=== PATIENT | female | born 1940 | race Caucasian/White ===

== ENCOUNTER 2019-09-15 09:19 | Outpatient (CLI) | payer MEDICARE, OTHER, SELFPAY ==
--- NOTE | 2019-09-15 09:31 | MM_ITS ---
WS: [id number] BILATERAL DIGITAL SCREENING MAMMOGRAPHY WITH CAD CLINICAL INFORMATION: SCREENING HISTORY: Screening mammogram. No current complaints. COMPARISON: July 21, 2018 TECHNIQUE: Bilateral CC and MLO views. FINDINGS: The breasts are composed of heterogeneous fibroglandular density tissue, which can limit the detectio n of small underlying mass lesions. No suspicious mass, asymmetry, calcifications, or architectural d istortion. No evidence of malignancy. Vascular calcification MM/[place] [id number] IMPRESSION: BI-RADS: 2-Benign FOLLOW UP: 1 Year Follow-up Recommend return to annual screening mammography.
== END 2019-09-15 09:20 | disposition home or self-care (01) ==
LOC: RADSHAW 09:25
PROVIDERS: PCP Family Medicine; Visit Provider Family Medicine
DX: Z12.31 Encounter for screening mammogram for malignant neoplasm of breast (principal)
CPT/HCPCS: 77067

== ENCOUNTER 2020-03-13 13:02 | Inpatient (IN) | payer MEDICARE, OTHER, SELFPAY ==
[2020-03-13 13:05] VITALS: BP 186/78; PULSE 89; RESP 18; TEMP 36.4; O2SAT 97; BMI 20.2
--- NOTE | 2020-03-13 13:07 | XRR_ITS ---
PROCEDURE INFORMATION: Exam: XR Left Knee Exam date and time: 03/13/2020 1:09 PM Age: 79 years old Clinical indication: Injury or trauma; Fall; Blunt trauma; Knee and lower leg; Left; Injury date: Today; Additional info: Fall/injury TECHNIQUE: Imaging protocol: XR Left knee. Views: 3 views. COMPARISON: No relevant prior studies available. FINDINGS: Bones/joints: Transverse displaced fracture involving the proximal shaft of the tibia and comminuted displaced fracture proximal shaft of the fibula Soft tissues: There is a suprapatellar bursa effusion. XR/XR knee LT 3V* [id number] IMPRESSION: 1. Transverse displaced posteriorly angulated fracture of the proximal tibia. 2. Comminuted displaced fracture of the proximal fibula. 3. Suprapatellar bursa effusion
--- NOTE | 2020-03-13 13:07 | XRR_ITS ---
PROCEDURE INFORMATION: Exam: XR Left Tibia and Fibula Exam date and time: 03/13/2020 1:09 PM Age: 79 years old Clinical indication: Injury or trauma; Fall; Blunt trauma; Knee and lower leg; Left; Injury date: Today; Additional info: Fall/injury TECHNIQUE: Imaging protocol: XR Left tibia and fibula. Views: 2 views. COMPARISON: No relevant prior studies available. FINDINGS: Bones/joints: Transverse displaced posteriorly angulated fracture of the proximal metaphysis of the tibia. Comminuted displaced fracture of the proximal fibula. The remainder of the tibia and fibula are unremarkable Soft tissues: Suprapatellar bursa effusion is seen. XR/XR tibia fibula LT 2V [id number] IMPRESSION: 1. Transverse displaced fracture of the proximal tibia 2. Comminuted displaced fracture of the proximal fibula 3. Suprapatellar bursa effusion
--- NOTE | 2020-03-13 13:21 | ED_ITS ---
HPI - Fall General: Chief Complaint: Fall Stated Complaint: LEFT LOWER LEG PAIN S/P FALL Time Seen by Provider: 03/13/20 13:03 Source: patient and EMS Mode of arrival: EMS Limitations: no limitations History of Present Illness: HPI Narrative: Freida is a nice 79-year-old female who states that she tripped and fell at restoration today. She has pain just distal to her left knee. She says at rest it does not hurt but anytime she tries to bear weight she has a great deal of pain in that area. She denies any other injuries. She denies being on any antiplatelet or anticoagulation. Any type of bearing of weight makes things worse and nothing makes it better Associated symptoms-after fall: Denies abdominal pain, chest pain, confusion, difficulty walking, headache(s), hematuria, lightheadedness or vertigo Review of Systems Const: Denies: fever(s), chills, body aches, fatigue, malaise or diaphoresis Eyes: Denies: change in vision, blurry vision, photophobia, eye discomfort, eye discharge, eye redness or yellow eyes ENMT: Denies: throat pain, odynophagia, hoarseness, swelling of lips/tongue, ear or mastoid pain, ear discharge, change in hearing or nasal discharge Card: Denies: chest pain, palpitations, irregular heart rhythm, edema, lightheadedness, syncope, pre-syncope, dyspnea on exertion or orthopnea Resp: Denies: dyspnea, productive cough, non-productive cough, wheezing, hemoptysis or chest congestion GI: Denies: abdominal pain, nausea, vomiting, hematemesis, coffee ground emesis, heartburn, diarrhea, constipation, GI cramping, hematochezia or melena : Denies: flank pain, dysuria, urinary frequency, urinary urgency or hematuria Musc: Reports: extremity pain and joint pain Skin/Breast: Denies: rash, pruritus, erythema, skin pain or skin tenderness Neuro: Denies: headache(s), numbness in extremities, weakness in extremities, sensory changes, lack of coordination, difficulty walking, dizziness, vertigo, confusion, Slurred speech present or seizure-like activity Stas/Lymph: Denies: easy bruising, easy bleeding, petechiae, purpura or enlarged lymph nodes All/Imm: Denies: urticaria, throat swelling, tongue swelling, facial swelling or acute wheezing ON LICENSE OF [facility] ED PFS: Medical History (Updated 03/13/20 @ 13:53 by Cheryl Herron) No pertinent past medical history Physical Exam Const: COMMON NORMALS: no acute distress, patient oriented x3, no limitations and alert GENERAL APPEARANCE: cooperative HENMT: COMMON NORMALS: normocephalic, atraumatic, external ears normal, EAC's normal and Normal external nose present HEAD & SCALP: normal to inspection, normocephalic and atraumatic FACE & SINUS: normal facial exam and face symmetric NOSE: Normal external nose present and Normal nares present EXTERNAL EAR: Yes external ears normal EXTERNAL AUDITORY CANAL: EAC's normal MOUTH: Normal oral and palatal mucosa present, lip normal and tongue normal Eye: COMMON NORMALS: Equal, round and reactive pupils present and conjunctivae normal GENERAL EYE: appearance normal, both eyes and all related structures ALIGNMENT: Yes alignment normal PERIORBITAL: periorbital findings normal EYELID: eyelids normal CONJUNCTIVA: Yes conjunctivae normal SCLERA: sclerae normal PUPIL: Yes Equal, round and reactive pupils present Neck/C-Spine: COMMON NORMALS: full ROM, no lymphadenopathy, supple, no meningeal signs and no JVD GENERAL: Yes normal visual inspection and Yes trachea midline Chest: COMMONS NORMALS: normal inspection of the chest and normal palpation of entire chest wall Resp: COMMON NORMALS: normal respiratory effort, No retractions, No use of accessory muscles and clear to auscultation bilaterally EFFORT & INSPECTION: Yes able to speak in complete sentences and Yes symmetric chest movement AUSCULTATION: clear to auscultation bilaterally, no crackles, no rales, no rhonchi and no wheezes Cardio: COMMON NORMALS: no JVD, regular rate, regular rhythm, S1 normal heart sound present and S2 normal heart sound present RATE: regular rate RHYTHM: regular rhythm HEART SOUNDS: S1 normal heart sound present, S2 normal heart sound present, no click, no gallops, no murmurs and no rubs GI: COMMON NORMALS: Soft to palpation and No hepatosplenomegaly present PALPATION: Yes Soft to palpation, No Tenderness to palpation present (GI), No Guarding due to palpation present (GI), No Rigid due to palpation, Yes No hepatosplenomegaly present, No Hernia present, No Palpable mass present and No Pulsatile mass present : COMMON NORMALS: Yes no CVA tenderness BLADDER/KIDNEY EXAM: Yes no CVA tenderness EXTERNAL FEMALE EXAM: No Hernia present Back/Pelvis: COMMON NORMALS: no CVA tenderness, thoracic and lumbar spine normal to inspection, no thoracic nor lumbar tenderness and thoraco-lumbar ROM normal Neuro: COMMON NORMALS: patient oriented x3, CN's II-XII intact bilaterally, moves all extremities, no focal motor deficits and no sensory deficits noted SENSORIUM/ORIENTATION: Yes alert MENINGEAL SIGNS: Yes no meningeal signs SPEECH: speech normal Psych: COMMON NORMALS: mental status grossly normal, Normal thought process present, cooperative, normal affect, speech normal and activity/motor behavior normal SPEECH: Yes normal speech THOUGHT PROCESS: Normal thought process present Skin: COMMON NORMALS: no rashes or lesions noted, turgor normal, no jaundice, no petechiae and no mottling GENERAL SKIN EXAM: no rashes or lesions noted and turgor normal Course Vital Signs: Vital signs: Vital Signs Temperature 97.5 F L 03/13/20 13:05 Pulse Rate 89 03/13/20 13:05 Respiratory Rate 18 03/13/20 13:05 Blood Pressure 186/78 03/13/20 13:05 Pulse Oximetry 97 03/13/20 13:05 MDM - Fall MDM Narrative: Medical decision making narrative: The case was reviewed with Dr. Gomez at Dr. Andrews, they will admit and consult respectively. Dr. Andrews would like the patient in a knee immobilizer and he will likely perform surgery in the morning. 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
--- NOTE | 2020-03-13 13:43 | XRR_ITS ---
PROCEDURE INFORMATION: Exam: XR Chest, 1 View Exam date and time: 03/13/2020 1:45 PM Age: 79 years old Clinical indication: Injury or trauma; Fall; Blunt trauma (contusions or hematomas); Injury date: Today; Additional info: Preop clearance TECHNIQUE: Imaging protocol: XR of the chest Views: 1 view. COMPARISON: CR Chest 2 views* [id number] 03/12/2014 2:54 PM FINDINGS: Lungs: Unremarkable. No consolidation. Pleural space: Unremarkable. No pleural effusion. No pneumothorax. Heart/Mediastinum: Unremarkable. No cardiomegaly. Bones/joints: Unremarkable. XR/XR chest 1V portable [id number] IMPRESSION: No acute findings.
[2020-03-13] MEDS: sodium chloride 0.9% 1,000 ML 100 ML IV ×2 (14:20→17:28)
[2020-03-13 14:30] VITALS: BP 167/84; PULSE 81; RESP 20; O2SAT 98
[2020-03-13 14:48] LABS: Basophils % 0.4 %; Eosinophils # 0.1 10^3/uL (0.0-0.8); Eosinophils % 1.6 %; Hematocrit 43.9 % (37.0-47.0); Lymphocytes # 0.9 10^3/uL (0.8-4.8); Lymphocytes % 11.4 %; Mean Corpuscular HGB Conc 31.9 g/dL (30.0-36.0); Mean Corpuscular Hemoglobin 30.2 pg (28.0-34.0); Mean Corpuscular Volume 94.8 fL (81-99); Mean Platelet Volume 10.7 fL (7.4-10.4); Monocytes # 0.3 10^3/uL (0.2-0.9); Monocytes % 4.2 %; Neutrophils # 6.26 10^3/uL (1.8-7.7); Nucleated Red Blood Cells % 0 %; Platelet Count 226 10^3/cmm (130-400); Red Blood Count 4.63 10^6/uL (4.1-5.3); White Blood Count 7.6 10^3/uL (4.0-10.0)
[2020-03-13 15:05] LABS: Alanine Aminotransferase 13 U/L (0-33); Albumin Level 4.7 g/dL (3.5-5.2); Alkaline Phosphatase 79 IU/L (35-105); Aspartate Amino Transferase 19 U/L (0-32); Blood Urea Nitrogen 10 mg/dL (8-23); Calcium 9.8 mg/dL (8.5-10.5); Carbon Dioxide 27 mmol/L (22-29); Chloride 100 mmol/L (98-107); Globulin 2.1 g/dL (1.3-4.6); Glucose 103 mg/dL (65-115); Magnesium 2.2 mg/dL (1.7-2.3); Osmolality Calculated 285 mOsm/kg (285-295); Sodium 138 mmol/L (136-145); Total Bilirubin 0.2 mg/dL (0.15-1.2); Total Protein 6.8 g/dL (6.6-8.7)
[2020-03-13 15:58] LABS: INR 0.95 (0.8-1.2)
[2020-03-13 16:00] LABS: Partial Thromboplastin Time 30.7 SECONDS (23.9-36.7)
--- NOTE | 2020-03-13 16:01 | PM.HP ---
Providers/Chief Complaint Admitting Physician: Gilmer Avila Primary Care Provider: Cheo Pastrana Jr, MD Chief Complaint: LEFT LOWER LEG PAIN S/P FALL History of Present Illness Very pleasant 79-year-old lady with history of osteoporosis, very longstanding cough, was brought in for evaluation to ER after taking a step backwards in hinduism and falling after missing a couple of steps, she then tried to stand up and fell down again, with identified resultant transverse displaced posteriorly angulated fracture of proximal tibia, comminuted displaced fracture of proximal fibula and suprapatellar bursal effusion. She is placed in immobilizer. ER physician discussed with orthopedics who requests admission to hospitalist service with consultation. Initial blood pressure noted elevated in ER, 186/78, however, this decreased spontaneously since then in ER. She denies history of hypertension. Reports her blood pressure was 120/70 in the PCPs office. She reports only medication she has been taking are Protonix started just recently due to chronic cough to see if perhaps heartburn is the cause, and calcitonin for osteoporosis which she has been taking for a long time. She otherwise has been in baseline state of health. Review of Systems Const: Denies: fever(s), chills, body aches, fatigue, malaise or diaphoresis Eyes: Denies: change in vision, blurry vision, photophobia, eye discomfort, eye discharge, eye redness or yellow eyes ENMT: Denies: throat pain, odynophagia, hoarseness, swelling of lips/tongue, ear or mastoid pain, ear discharge, change in hearing or nasal discharge Card: Denies: chest pain, palpitations, irregular heart rhythm, edema, lightheadedness, syncope, pre-syncope, dyspnea on exertion or orthopnea Resp: Reports: non-productive cough (chronic, possibly 2/2 GERD); Denies: dyspnea, productive cough, wheezing, hemoptysis or chest congestion GI: Denies: abdominal pain, nausea, vomiting, hematemesis, coffee ground emesis, heartburn, diarrhea, constipation, GI cramping, hematochezia or melena : Denies: flank pain, dysuria, urinary frequency, urinary urgency or hematuria Musc: Reports: extremity pain and joint pain Skin/Breast: Denies: rash, pruritus, erythema, skin pain or skin tenderness Neuro: Denies: headache(s), numbness in extremities, weakness in extremities, sensory changes, lack of coordination, difficulty walking, dizziness, vertigo, confusion, Slurred speech present or seizure-like activity Stas/Lymph: Denies: easy bruising, easy bleeding, petechiae, purpura or enlarged lymph nodes All/Imm: Denies: urticaria, throat swelling, tongue swelling, facial swelling or acute wheezing Medications/Allergies Home Medications Medication Instructions Recorded Confirmed Last Taken Type Calcium + D 1 tab PO DAILY 03/13/20 03/13/20 Unknown History Cay[place] Tab 1 tab PO DAILY 03/13/20 03/13/20 Unknown History Cinnamon 1 cap PO DAILY 03/13/20 03/13/20 Unknown History Vitamin C 1 tab PO DAILY 03/13/20 03/13/20 Unknown History Vitamin D3 1 cap PO DAILY 03/13/20 03/13/20 Unknown History aspirin [Aspir-81] 81 mg PO DAILY 03/13/20 03/13/20 03/12/20 History beta carotene 1 cap PO DAILY 03/13/20 03/13/20 Unknown History calcitonin (salmon) See Rx Instructions .ROUTE .COMPLEX 03/13/20 03/13/20 Unknown History codeine-guaifenesin [Virtussin AC] 5 ml PO Q4H PRN 03/13/20 03/13/20 03/12/20 History cranberry 1 tab PO DAILY 03/13/20 03/13/20 Unknown History lutein 1 cap PO DAILY 03/13/20 03/13/20 Unknown History lysine 1 cap PO DAILY 03/13/20 03/13/20 Unknown History multivitamin 1 tab PO DAILY 03/13/20 03/13/20 Unknown History pantoprazole 40 mg PO DAILY 03/13/20 03/13/20 03/13/20 History vitamin E 1 cap PO DAILY 03/13/20 03/13/20 Unknown History zinc 1 cap PO DAILY 03/13/20 03/13/20 Unknown History Allergies Allergy/AdvReac Type Severity Reaction Status Date / Time Sulfa (Sulfonamide Allergy ALGY-Hives Verified 03/13/20 14:07 Antibiotics) PFSH Acute PFSH: Medical History Chronic cough No pertinent past medical history Osteoporosis Surgical History History of hip replacement Family History Mother CHF (congestive heart failure) Social History Alcohol intake: never Lives independently: Yes Household members: spouse Current occupational status: retired Vitals/I&O/Wt Last Vital Signs Temp 97.5 F L 03/13/20 13:05 Pulse 89 03/13/20 13:05 Resp 18 03/13/20 13:05 BP 186/78 03/13/20 13:05 Pulse Ox 97 03/13/20 13:05 Weight last 48 hrs Weight 53.524 kg Physical Exam Const: COMMON NORMALS: no acute distress, patient oriented x3 and alert GENERAL APPEARANCE: cooperative ORIENTATION/CONSCIOUSNESS: Yes awake HENMT: COMMON NORMALS: oropharynx normal Neck/C-Spine: COMMON NORMALS: no JVD Resp: COMMON NORMALS: normal respiratory effort and clear to auscultation bilaterally AUSCULTATION: clear to auscultation bilaterally Cardio: COMMON NORMALS: no JVD, regular rhythm, S1 normal heart sound present, S2 normal heart sound present and No murmurs present (Cardio) RHYTHM: regular rhythm HEART SOUNDS: S1 normal heart sound present and S2 normal heart sound present GI: COMMON NORMALS: Normal to inspection, nondistended, normoactive bowel sounds present, Soft to palpation and non-tender PALPATION: Yes Soft to palpation Extremity: COMMON NORMALS: no joint enlargement and no pedal edema OTHER: LLE perfused, good PT, DP pulses. Knee immobilizer. Neuro: COMMON NORMALS: patient oriented x3 and moves all extremities Skin: COMMON NORMALS: no rashes or lesions noted GENERAL SKIN EXAM: no rashes or lesions noted Data : 03/13/20 14:03 03/13/20 14:03 A&P Assessment and plan (1) Fracture tibia/fibula: Mechanical fall after a misstep at hinduism resultant in transverse displaced posteriorly angulated fracture of proximal tibia, comminuted displaced fracture of proximal fibula and suprapatellar bursal effusion. Pending orthopedic assessment for surgical repair. Good blood flow currently with palpable PT, DP pulses. Not much significant past medical history. She does report previously having some difficulty waking up from anesthesia. Would like to discuss this with the surgeon and anesthesiologist. She otherwise is at baseline state of health. Blood pressure was noted elevated in ER, but had improved spontaneously. Monitor. Likely related to pain/stress. No additional optimization to be done prior to surgery apart from possibly assessment of EKG, although she has no chest pain, no shortness of breath or other suggestion of any kind of cardiac ischemia or heart failure. Discussed with her operative risk would likely be average for her age. Status: Acute Qualifiers: Encounter type: initial encounter Fracture type: closed Laterality: left Qualified Code(s): S82.202A - Unspecified fracture of shaft of left tibia, initial encounter for closed fracture; S82.402A - Unspecified fracture of shaft of left fibula, initial encounter for closed fracture (2) Osteoporosis: Calcitonin Status: Acute (3) Chronic cough: Recently started pantoprazole. Status: Acute Attestations Medical Necessity Statement*: Admission of over 2 midnights is anticipated for assessment management of ransverse displaced posteriorly angulated fracture of proximal tibia, comminuted displaced fracture of proximal fibula and suprapatellar bursal effusion. 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
[2020-03-13 16:05] VITALS: BP 147/65; PULSE 79; RESP 18; O2SAT 95
--- NOTE | 2020-03-13 16:13 | ECG_ITS ---
[facility] Test Date: 2020-03-13 Pat Name: Freida Pavon Department: Room: 260 Gender: Female Gate Supervisor: : 1940 Requested By: Gilmer Avila Order Number: [id number] Jermaine MD: Timothy Tolentino M.D. Measurements Intervals [place] Rate: 83 P: 58 LA: 143 QRS: 33 QRSD: 88 T: 25 QT: 366 QTc: 432 Interpretive Statements SINUS RHYTHM No previous ECG available for comparison Electronically Signed On 03-13-2020 18:51:34 TRAVEL CONSULTANT by Timothy Tolentino M.D. [id number]
[2020-03-13 16:37] VITALS: BP 149/74; PULSE 82; RESP 17; TEMP 37.2; O2SAT 94
[2020-03-13 16:38] LABS: Urine Appearance SL Hazy (CLEAR); Urine Color Yellow (Yellow); pH Urine 6 (5-7)
[2020-03-13 16:39] LABS: Add Urine Microscopic? YES; Bilirubin Urine Neg (Negative); Blood Urine Neg (Negative); Glucose Urine UA Norm (Normal); Ketones Urine 1+ (Negative); Leukocyte Esterase Urine Negative (Negative); Nitrate Urine Negative (Negative); Protein Urine Neg (Negative); Urobilinogen Urine Norm (Negative)
[2020-03-13 16:40] LABS: Bacteria Urine TRACE /hpf; Hyaline Casts Urine 0-4 /lpf; Mucus Urine TRACE /hpf; Squamous Epithelial Cell Urine 0-4 /hpf (0-5)
[2020-03-13 16:41] LABS: Add Urine Culture? No
[2020-03-13] MEDS: acetaminophen 325 mg Tablet 650 MG PO ×2 (17:30→23:35)
[2020-03-13 20:00] VITALS: BP 155/74; PULSE 85; RESP 18; TEMP 36.7; O2SAT 95
[2020-03-13 23:56] VITALS: BP 150/73; PULSE 77; RESP 18; TEMP 36.8; O2SAT 91
[2020-03-14] VITALS (18 sets, daily range): BP systolic 122–167; BP diastolic 60–87; PULSE 83–107; RESP 16–37; TEMP 36.4–37; O2SAT 92–99
--- NOTE | 2020-03-14 | XR_ITS ---
WS: [id number] XR knee LT 1-2V [id number] REASON FOR EXAM: external fixator FINDINGS: Transverse fracture of the proximal left tibia which extends into the medial tibial plateau. Associat ed oblique fracture of the proximal left fibula. The left patella appears superiorly displaced which may relate to the anterior angulation of the tibi al fracture with loss of infrapatellar tendon traction. External fixation device secured proximal and distal to the left knee. Device properly positioned. XR/XR knee LT 1-2V [id number] IMPRESSION: Complex fracture of the proximal tibia with external fixation as above.
--- NOTE | 2020-03-14 | SCC_ITS ---
Procedure Done: Uniplanar external fixator left leg. For tibial plateau fracture. Spanning the knee. 19.5 seconds of fluoroscopic guidance, for a cumulative dose of 1.16 mGy, was provided to Dr. Andrews by the radiology department. C-arm images of the LEFT knee were saved for the patient's permanent record. [facility]
[2020-03-14 05:47] LABS: Basophils % 0.4 %; Eosinophils % 0.3 %; Hematocrit 34.7 % (37.0-47.0); Hemoglobin 11.1 g/dL (11.5-15.3); Lymphocytes # 0.8 10^3/uL (0.8-4.8); Lymphocytes % 11.2 %; Mean Corpuscular Hemoglobin 30.2 pg (28.0-34.0); Mean Corpuscular Volume 94.6 fL (81-99); Mean Platelet Volume 10.6 fL (7.4-10.4); Monocytes # 0.7 10^3/uL (0.2-0.9); Nucleated Red Blood Cells % 0 %; Platelet Count 179 10^3/cmm (130-400); Red Blood Count 3.67 10^6/uL (4.1-5.3); Red Cell Distribution Width 13.1 % (12.1-15.1); White Blood Count 7.3 10^3/uL (4.0-10.0)
[2020-03-14] MEDS: acetaminophen 325 mg Tablet 650 MG PO ×2 (06:23→22:50)
[2020-03-14 06:43] LABS: Blood Urea Nitrogen 7 mg/dL (8-23); Calcium 8.3 mg/dL (8.5-10.5); Carbon Dioxide 23 mmol/L (22-29); Chloride 107 mmol/L (98-107); Glucose 97 mg/dL (65-115); Osmolality Calculated 288 mOsm/kg (285-295); Sodium 140 mmol/L (136-145)
[2020-03-14 06:49] LABS: Creatinine Clr Calc Pharmacy 47.9065
--- NOTE | 2020-03-14 07:34 | P.ANESASSM_ITS ---
Pre-Anesthetic Assessment Pre-Anesthetic Assessment: Height/Weight: Height 1.63 m Weight 55.508 kg Temp Pulse Resp BP Pulse Ox 97.6 F 85 18 138/76 95 03/14/20 04:00 03/14/20 04:00 03/14/20 04:00 03/14/20 04:00 03/14/20 04:00 Preop Diagnosis: left tibial plateau fracture Proposed Procedure: Operation Date: 03/14/20 08:10 Proposed Procedures p External Fixator Lower Extremity(Left) - Ander Andrews DO Familial anesthetic complications: Takes awhile to wake up, also states her cousin was never the same mentally after he came out of anesthesia Was Beta Valdo taken within 24 hours: N/A Last intake: NPO > 8 hrs Social: Social History: No alcohol and No tobacco Exam: Pre-Anes Outpt Exam: alert, oriented x 3, clear to auscultation bilaterally and regular rate & rhythm Airway: Cervical ROM: WNL MP: 2 Dentition: Full Pulmonary: Pulmonary: Cough (? gerd) GI: GI: GERD Anesthetic Plan: ASA status: 1 Anesthesia: General Risk of > 500 ml blood loss (7ml/kg in children): No Meds/Allergies Current Medications: Current Medications Generic Name Dose Route Start Last Admin Trade Name Freq PRN Reason Stop Dose Admin Acetaminophen 650 mg 03/13/20 16:37 03/14/20 06:23 Acetaminophen 32 5 Mg Tablet PO 650 mg Q6H PRN Administration Mild/Mod Pain Or Temp >/= 101 Sodium Chloride 1,000 mls @ 100 m ls/hr 03/13/20 13:45 03/13/20 17:28 Sodium Chloride 0.9% IV 100 mls/hr .Q10H ELVIS Administration PFSH Anesthesia PFSH: Medical History Chronic cough No pertinent past medical history Osteoporosis Surgical History History of hip replacement Family History Mother CHF (congestive heart failure) Social History Alcohol intake: never Lives independently: Yes Household members: spouse Current occupational status: retired Data Anesthesia CBC & Chem 7: 03/14/20 05:35 03/14/20 05:35 Other Labs: Laboratory Results - last 48 hr 03/13/20 03/13/20 03/13/20 14:03 14:03 14:03 WBC 7.6 RBC 4.63 Hgb 14.0 Hct 43.9 MCV 94.8 MCH 30.2 MCHC 31.9 RDW 13.0 Plt Count 226 MPV 10.7 H Neut % (Auto) 82.0 Lymph % (Auto) 11.4 Reynolds % (Auto) 4.2 Eos % (Auto) 1.6 Baso % (Auto) 0.4 Neut # (Auto) 6.26 Lymph # (Auto) 0.9 Reynolds # (Auto) 0.3 Eos # (Auto) 0.1 Baso # (Auto) 0.0 Nucleated RBC % (auto) 0 Nucleated RBCs # 0.0 PT 13.00 INR 0.95 APTT 30.7 Sodium Potassium Chloride Carbon Dioxide Anion Gap BUN Creatinine GFR Calculation Glucose Calculated Osmolality Calcium Magnesium Total Bilirubin AST ALT Alkaline Phosphatase Total Protein Albumin Globulin Urine Color Urine Appearance Urine pH Ur Specific [place] Urine Protein Urine Glucose (UA) Urine Ketones Urine Blood Urine Nitrate Urine Bilirubin Urine Urobilinogen Ur Leukocyte Esterase Urine RBC Urine WBC Ur Squamous Epith Cells Amorphous Sediment Urine Bacteria Hyaline Casts Urine Mucus Blood Type O Positive Rho(D) Type Positive 03/13/20 03/13/20 03/14/20 14:03 15:00 05:35 WBC 7.3 RBC 3.67 L Hgb 11.1 L Hct 34.7 L MCV 94.6 MCH 30.2 MCHC 32.0 RDW 13.1 Plt Count 179 MPV 10.6 H Neut % (Auto) 79.0 Lymph % (Auto) 11.2 Reynolds % (Auto) 9.0 Eos % (Auto) 0.3 Baso % (Auto) 0.4 Neut # (Auto) 5.80 Lymph # (Auto) 0.8 Reynolds # (Auto) 0.7 Eos # (Auto) 0.0 Baso # (Auto) 0.0 Nucleated RBC % (auto) 0 Nucleated RBCs # 0.0 PT INR APTT Sodium 138 Potassium 4.0 Chloride 100 Carbon Dioxide 27 Anion Gap 15.0 BUN 10 Creatinine 0.5 GFR Calculation Not Reportable Glucose 103 Calculated Osmolality 285 Calcium 9.8 Magnesium 2.2 Total Bilirubin 0.2 AST 19 ALT 13 Alkaline Phosphatase 79 Total Protein 6.8 Albumin 4.7 Globulin 2.1 Urine Color Yellow Urine Appearance Sl hazy Urine pH 6 Ur Specific [place] 1.010 Urine Protein Neg Urine Glucose (UA) Norm Urine Ketones 1+ H Urine Blood Neg Urine Nitrate Negative Urine Bilirubin Neg Urine Urobilinogen Norm Ur Leukocyte Esterase Negative Urine RBC None Urine WBC None Ur Squamous Epith Cells 0-4 H Amorphous Sediment Not Reportable Urine Bacteria Trace Hyaline Casts 0-4 H Urine Mucus Trace Blood Type Rho(D) Type 03/14/20 05:35 WBC RBC Hgb Hct MCV MCH MCHC RDW Plt Count MPV Neut % (Auto) Lymph % (Auto) Reynolds % (Auto) Eos % (Auto) Baso % (Auto) Neut # (Auto) Lymph # (Auto) Reynolds # (Auto) Eos # (Auto) Baso # (Auto) Nucleated RBC % (auto) Nucleated RBCs # PT INR APTT Sodium 140 Potassium 4.0 Chloride 107 Carbon Dioxide 23 Anion Gap 14.0 BUN 7 L Creatinine 0.4 L GFR Calculation Not Reportable Glucose 97 Calculated Osmolality 288 Calcium 8.3 L Magnesium Total Bilirubin AST ALT Alkaline Phosphatase Total Protein Albumin Globulin Urine Color Urine Appearance Urine pH Ur Specific [place] Urine Protein Urine Glucose (UA) Urine Ketones Urine Blood Urine Nitrate Urine Bilirubin Urine Urobilinogen Ur Leukocyte Esterase Urine RBC Urine WBC Ur Squamous Epith Cells Amorphous Sediment Urine Bacteria Hyaline Casts Urine Mucus Blood Type Rho(D) Type Cardiac Studies: No Data to Display
--- NOTE | 2020-03-14 07:39 | W.PM.OPSUD ---
Surgery/Procedure H&P Update DATE OF PROCEDURE: March 14, 2020 DATE H&P PERFORMED: 03/14/20 H&P UPDATE INFORMATION: I have reviewed H&P completed within last 30 days, I have examined patient prior to procedure and No changes to prior documentation PREOP DIAGNOSIS: left tibial plateau fracture PLANNED PROCEDURE: Operation Date: 03/14/20 08:10 Proposed Procedures p External Fixator Lower Extremity(Left) - Ander Andrews DO
--- NOTE | 2020-03-14 07:40 | P.CONIM_ITS ---
Providers/Reason For Consult Consulting Physican/Specialty*: hospitalist Reason for Consult*: tibial plateau fracture on left Attending Physician: Linda Adler MD Primary Care Provider: Cheo Pastrana Jr, MD History of Present Illness History of Present Illness Freida Pavon is a 79 year old female Meds/Allergies Home Medications and Allergies Home Medications Medication Instructions Recorded Confirmed Last Taken Type Calcium + D 1 tab PO DAILY 03/13/20 03/13/20 Unknown History Cay[place] Tab 1 tab PO DAILY 03/13/20 03/13/20 Unknown History Cinnamon 1 cap PO DAILY 03/13/20 03/13/20 Unknown History Vitamin C 1 tab PO DAILY 03/13/20 03/13/20 Unknown History Vitamin D3 1 cap PO DAILY 03/13/20 03/13/20 Unknown History aspirin [Aspir-81] 81 mg PO DAILY 03/13/20 03/13/20 03/12/20 History beta carotene 1 cap PO DAILY 03/13/20 03/13/20 Unknown History calcitonin (salmon) See Rx Instructions .ROUTE .COMPLEX 03/13/20 03/13/20 Unknown History codeine-guaifenesin [Virtussin AC] 5 ml PO Q4H PRN 03/13/20 03/13/20 03/12/20 History cranberry 1 tab PO DAILY 03/13/20 03/13/20 Unknown History lutein 1 cap PO DAILY 03/13/20 03/13/20 Unknown History lysine 1 cap PO DAILY 03/13/20 03/13/20 Unknown History multivitamin 1 tab PO DAILY 03/13/20 03/13/20 Unknown History pantoprazole 40 mg PO DAILY 03/13/20 03/13/20 03/13/20 History vitamin E 1 cap PO DAILY 03/13/20 03/13/20 Unknown History zinc 1 cap PO DAILY 03/13/20 03/13/20 Unknown History Allergies Allergy/AdvReac Type Severity Reaction Status Date / Time Sulfa (Sulfonamide Allergy ALGY-Hives Verified 03/13/20 14:07 Antibiotics) Current Medications Current Medications Generic Name Dose Route Start Last Admin Trade Name Freq PRN Reason Stop Dose Admin Acetaminophen 650 mg 03/13/20 16:37 03/14/20 06:23 Acetaminophen 325 Mg Tablet PO 650 mg Q6H PRN Administration Mild/Mod Pain Or Temp >/= 101 Sodium Chloride 1,000 mls @ 100 mls/hr 03/13/20 13:45 03/13/20 17:28 Sodium Chloride 0.9% IV 100 mls/hr .Q10H ELVIS Administration PFSH Acute PFSH: Medical History Chronic cough No pertinent past medical history Osteoporosis Surgical History History of hip replacement Family History Mother CHF (congestive heart failure) Social History Alcohol intake: never Lives independently: Yes Household members: spouse Current occupational status: retired Vitals/I&O/Wt Last Vital Signs Temp 97.6 F 03/14/20 04:00 Pulse 85 03/14/20 04:00 Resp 18 03/14/20 04:00 BP 138/76 03/14/20 04:00 Pulse Ox 95 03/14/20 04:00 03/13/20 03/14/20 03/14/20 22:59 06:59 14:59 Intake Total 433.333 / 433.333 Output Total 500 / 500 Balance 433.333 / 433.333 -500 / -66.667 Weight last 48 hrs Weight 122 lb 6 oz Weight 118 lb Coding Level of Care Code 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
--- NOTE | 2020-03-14 07:41 | P.CONIM_ITS ---
Providers/Reason For Consult Consulting Physican/Specialty*: hospitalist Reason for Consult*: left tibial plateau fracture Attending Physician: Linda Adler MD Primary Care Provider: Cheo Pastrana Jr, MD History of Present Illness History of Present Illness Freida Pavon is a 79 year old female that fell [place]. She sustained a left tibial plateau fracture. It is angulated and displaced. She was placed in a knee immobilizer in the ER. Review of Systems Narrative: General ROS: negative for weight changes, fever ENT ROS: negative for nasal congestion, drainage or bleeding, sore throat, dysphagia or ear pain Eyes: PERRL Hematological and Lymphatic ROS: negative for swollen glands or abnormal bleeding Endocrine ROS: negative for polyuria/polydpsia or new changes in weight Respiratory ROS: negative for cough, shortness of breath, or wheezing Cardiovascular ROS: negative for chest pain or dyspnea on exertion Gastrointestinal ROS: negative for reflux, abdominal pain, change in bowel habits, or black or bloody stools Musculoskeletal ROS: negative for back pain, neck pain, or joint pain or swelling except for current problem Neurological ROS: negative for TIA or stoke symptoms Skin: no rashes Meds/Allergies Home Medications and Allergies Home Medications Medication Instructions Recorded Confirmed Last Taken Type Calcium + D 1 tab PO DAILY 03/13/20 03/13/20 Unknown History Cay[place] Tab 1 tab PO DAILY 03/13/20 03/13/20 Unknown History Cinnamon 1 cap PO DAILY 03/13/20 03/13/20 Unknown History Vitamin C 1 tab PO DAILY 03/13/20 03/13/20 Unknown History Vitamin D3 1 cap PO DAILY 03/13/20 03/13/20 Unknown History aspirin [Aspir-81] 81 mg PO DAILY 03/13/20 03/13/20 03/12/20 History beta carotene 1 cap PO DAILY 03/13/20 03/13/20 Unknown History calcitonin (salmon) See Rx Instructions .ROUTE .COMPLEX 03/13/20 03/13/20 Unknown History codeine-guaifenesin [Virtussin AC] 5 ml PO Q4H PRN 03/13/20 03/13/20 03/12/20 History cranberry 1 tab PO DAILY 03/13/20 03/13/20 Unknown History lutein 1 cap PO DAILY 03/13/20 03/13/20 Unknown History lysine 1 cap PO DAILY 03/13/20 03/13/20 Unknown History multivitamin 1 tab PO DAILY 03/13/20 03/13/20 Unknown History pantoprazole 40 mg PO DAILY 03/13/20 03/13/20 03/13/20 History vitamin E 1 cap PO DAILY 03/13/20 03/13/20 Unknown History zinc 1 cap PO DAILY 03/13/20 03/13/20 Unknown History Allergies Allergy/AdvReac Type Severity Reaction Status Date / Time Sulfa (Sulfonamide Allergy ALGY-Hives Verified 03/13/20 14:07 Antibiotics) Current Medications Current Medications Generic Name Dose Route Start Last Admin Trade Name Freq PRN Reason Stop Dose Admin Acetaminophen 650 mg 03/13/20 16:37 03/14/20 06:23 Acetaminophen 325 Mg Tablet PO 650 mg Q6H PRN Administration Mild/Mod Pain Or Temp >/= 101 Sodium Chloride 1,000 mls @ 100 mls/hr 03/13/20 13:45 03/13/20 17:28 Sodium Chloride 0.9% IV 100 mls/hr .Q10H ELVIS Administration PFSH Acute PFSH: Medical History Chronic cough No pertinent past medical history Osteoporosis Surgical History History of hip replacement Family History Mother CHF (congestive heart failure) Social History Alcohol intake: never Lives independently: Yes Household members: spouse Current occupational status: retired Vitals/I&O/Wt Last Vital Signs Temp 97.6 F 03/14/20 04:00 Pulse 85 03/14/20 04:00 Resp 18 03/14/20 04:00 BP 138/76 03/14/20 04:00 Pulse Ox 95 03/14/20 04:00 03/13/20 03/14/20 03/14/20 22:59 06:59 14:59 Intake Total 433.333 / 433.333 Output Total 500 / 500 Balance 433.333 / 433.333 -500 / -66.667 Weight last 48 hrs Weight 122 lb 6 oz Weight 118 lb Physical Exam Narrative: EXAM NARRATIVE: Left leg. Patient has good pulses able to move toes up and down. Sensation is intact. A&P Additional A&P Information Left intra-articular tibial plateau fracture. Consult Attestations Medical Necessity Statement: Pain Coding Level of Care Code Acute Wastewater Treatment Engineer for Pili Reyez
--- NOTE | 2020-03-14 08:42 | P.OP_ITS ---
Operative Report Date of procedure: March 14, 2020 Pre-op Diagnosis: left tibial plateau fracture Post-op diagnosis: same Procedure Done: Uniplanar external fixator left leg. For tibial plateau fracture. Spanning the knee. Surgeon: Ander Andrews Anesthesia: General Estimated blood loss (mL): 10 Condition: stable Disposition: PACU Procedure: Patient was brought to the operative suite placed in the supine position all areas patient well-padded patient's prepped and draped partial fashion [place] was made into the 2 stab incisions made to the femur to stem screws in the tibia. 2 Schanz pins were placed into the femur 2 Schanz pins placed in the tibia traction was applied rods and clamps were attached this is a uniplanar exfix. The clamps were tightened down after traction AP and lateral fluoroscopy ensured the hardware and the fracture were adequately reduced. Hardware is in prone position. Xeroform 4 x 4 was then placed around the pin sites and gauze was placed around the dressings. Patient was then transferred to the PACU in stable condition.
--- NOTE | 2020-03-14 08:51 | CT_ITS ---
WS: [id number] CT LEFT KNEE, NONCONTRAST HISTORY: tibial plateau fracture Technique: All CT scans at [facility] use at least one of these dose optimization techniq ues: automated exposure control; mA and/or kV adjustment per patient size (includes targeted exams wh ere dose is matched to clinical indication); or iterative reconstruction. DLP: 1188.92 mGy.cm COMPARISON: 03/14/2020 and 03/13/2020. External fixators have been applied to the mid femoral diaphysis and the mid tibial diaphysis. Comminuted tibial plateau fracture. Fracture extends across the tibial plateau and extends into the t ibial metaphysis. There is very slight impaction along the fracture. Fracture lines extend to the med ial and lateral tibial plateau surfaces. Anterior displacement by 9.4 mm. There is overlapping of bon e fragments posteriorly. There is an additional comminuted fracture involving the proximal fibular ne ck and head. No femoral condyle fractures are identified. There is a large lipohemarthrosis. Moderate calcification in the tibial arteries. CT/CT knee LT wo con* [id number] IMPRESSION: 1. Comminuted tibial plateau fracture with extension to the medial and lateral articular surfaces. 2. Tibial plateau fracture extends into the tibial metaphysis. 3. Comminuted fibular head and neck fracture. 4. Large lipohemarthrosis. 5. Status post external fixator placement.
--- NOTE | 2020-03-14 09:33 | PC.CHAP ---
Pastoral Care Encounter/Spiritual Assessment Type of Contact [] Declined pizza baker visit [] Patient/Family/Request visit [] Outpatient visit [] Follow-up visit [] Physician referral [] Code/Alert [] Routine visit [] Staff referral [] Actively dying [] Patient sleeping [] Family support [] [x] Out of room [] Palliative care [] [] Receiving care in room [] Pre-surgical visit [] Trauma [] Long length of stay [] ICU visit [] Other: Relational/Emotional Strength [] Patient feels connected with others/family/visitors/staff [] Distress [] Loneliness/isolation [] Abandonment Spirituality of Patient [] Person of Urvashi [] Attends Samaritan of their Urvashi [] Believes in Prayer [] Reads Bible or Anabaptism materials [] There are Spiritual issues to be addressed Journal Clerk Interventions [] Prayer [] Active listening [] Non-anxious presence [] Spiritual/emotional support [] Crisis/trauma care [] Spiritual counseling [] Bereavement support [] Provided bereavement packet [] Provided Bible/devotional materials [] Provided toy/stuffed animal, coloring book to patient or family member [] Provided Communion [] Anointing/Dendron [] Salvation [] Completed spiritual assessment [] Other: Impact on Illness or Injury [] Angry [] Fearful [] Anxious [] Often cries [] Exhaustion [] Unable to work [] Unable to attend rastafari [] Unable to walk/stand [] Unable to read [] Unable to drive [] Unable to eat/drink [] Unable to sleep [] Unable to be with family [] Patient intubated [] Other: Summary Time spent with patient
[2020-03-14] MEDS: ondansetron 2 mg/ML SDV 2 mL 4 MG IVP ×3 (11:53→20:46)
--- NOTE | 2020-03-14 15:16 | PM.PACU ---
PACU note Post-Anesthesia Exam: awake and vital signs stable Disposition: back to floor
[2020-03-14] MEDS: HYDROcodone-acetaminophen 5-325 mg Tablet 1 TAB PO (15:26)
[2020-03-14] MEDS: ceFAZolin 1,000 MG in sodium chloride 0.9% (plus) 50 ML 100 MG IV ×2 (15:27→23:31)
[2020-03-14] MEDS: morphine 4 mg/mL SDV 1 mL 1 MG IVP (16:36)
[2020-03-14] MEDS: enoxaparin 40 mg/0.4 mL Syringe SUBCUT (20:01)
--- NOTE | 2020-03-14 22:03 | P.PN_ITS ---
Subjective Subjective: Interval history: Patient seen after surgery. Having some nausea but not as much pain. External fixator is noted. She has some questions about this which I answered to the best of my ability. Reviewed fall again and it was mechanical. Denies chest pain or difficulty breathing. Vitals/I&O/Wt Last Vital Signs Temp 98.0 F 03/14/20 20:37 Pulse 86 03/14/20 20:37 Resp 18 03/14/20 20:37 BP 132/70 03/14/20 20:37 Pulse Ox 95 03/14/20 20:37 03/14/20 03/14/20 03/14/20 06:59 14:59 22:59 Intake Total 1160 / 1160 50 / 1210 Output Total 500 / 500 Balance -500 / -66.667 1150 / 1150 50 / 1200 Weight last 48 hrs Weight 55.508 kg Weight 53.524 kg Physical Exam Const: OTHER: Alert, oriented x3, cooperative, a little sleepy status post recent surgery HENMT: OTHER: Normocephalic atraumatic, mucous membranes Eye: OTHER: Pupils equally round Neck/C-Spine: OTHER: Supple Resp: OTHER: Clear to auscultation bilaterally Cardio: OTHER: Regular rate and rhythm GI: OTHER: Abdomen soft, nontender, positive bowel sounds Extremity: NARRATIVE EXTREMITY EXAM: Left lower extremity with external fixator in place. She has some edema distally which is not unexpected but pu lses are 2+ and equal. Able to move toes. Neuro: OTHER: Face symmetric, speech clear, moves all extremities Psych: OTHER: Normal affect Skin: OTHER: Skin is dry, not able to visualize surgical site through the dressing. Dressing around external fixator insertions has some drying blood noted Data : 03/14/20 05:35 03/14/20 05:35 A&P Assessment and plan (1) Fracture of left tibial plateau: Post op day 0 with external fixation by Dr. Andrews From mechanical fall Status: Acute Qualifiers: Encounter type: initial encounter Fracture type: closed Qualified Code(s): S82.142A - Displaced bicondylar fracture of left tibia, initial encounter for closed fracture (2) Osteoporosis: Chronically on calcitonin as well as calcium plus vitamin D Status: Acute Qualifiers: Osteoporosis type: unspecified (3) Chronic cough: Status: Acute Additional A&P Information Takes multiple vitamins Pain control Nausea medication Stool softners Resume calcium+D Other management as per orthopedics Lovenox for DVT prophylaxis Supportive care otherwise Attestations Medical Necessity Statement*: Requires ongoing inpatient care for management of tibial plateau fracture status post external fixation. Plans are as indicated. Coding Level of Care Code Acute Truck Driver Teamster for Pili Fwd Diagnoses Fracture of left tibial plateau S82.142A Encounter type: initial encounter Fracture type: closed Osteoporosis M81.0 Osteoporosis type: unspecified Chronic cough R05
[2020-03-15] VITALS (9 sets, daily range): BP systolic 110–150; BP diastolic 62–75; PULSE 79–96; RESP 14–18; TEMP 36.5–37.4; O2SAT 92–96
--- NOTE | 2020-03-15 08:04 | PM.PN ---
Subjective Subjective: Interval history: Patient's pain is controlled at this point. She has difficulty taking pain meds because of nausea. Vitals/I&O/Wt Last Vital Signs Temp 99.1 F 03/15/20 07:08 Pulse 96 03/15/20 07:08 Resp 18 03/15/20 07:08 BP 144/70 03/15/20 07:08 Pulse Ox 92 03/15/20 07:08 03/14/20 03/15/20 03/15/20 22:59 06:59 14:59 Intake Total 50 / 1210 50 / 50 Output Total 350 / 360 0 / 360 Balance -300 / 850 0 / 850 50 / 50 Weight last 48 hrs Weight 115 lb 6.4 oz Weight 122 lb 6 oz Weight 118 lb Physical Exam Narrative: EXAM NARRATIVE: Patient has external fixator on. I would like to have her have ice on her leg. She is able to move her toes sensation is intact. Data : 03/14/20 05:35 03/14/20 05:35 A&P Additional A&P Information Postop day #1 external fixator for a left tibial plateau fracture. The plan will be to do the definitive fixation on March 28. She will have open reduction internal fixation of the left tibial plateau at this time. In the meantime she can be discharged home if she can manage to get around with the exfix on. She may need to go to a [place] [facility] facility or rehab facility. She should be on blood thinner of some sort. Attestations Medical Necessity Statement*: pain Coding Level of Care Code Acute Automation And Controls Supervisor for Pili Reyez
[2020-03-15] MEDS: ceFAZolin 1,000 MG in sodium chloride 0.9% (plus) 50 ML 100 MG IV (08:19)
[2020-03-15] MEDS: acetaminophen 325 mg Tablet 650 MG PO ×3 (08:20→22:28)
[2020-03-15] MEDS: aspirin 81 mg EC Tablet PO (08:20)
[2020-03-15] MEDS: calcium carb-vit d 600mg/400unit 1 Tablet 1 EACH PO (08:20)
[2020-03-15] MEDS: pantoprazole DR 40 mg Tablet PO (08:20)
[2020-03-15] MEDS: ondansetron 2 mg/ML SDV 2 mL 4 MG IVP (08:20)
--- NOTE | 2020-03-15 09:16 | PC.OT ---
OT EVALUATION ATTEMPTED. PATIENT HAD RETURNED TO BED AFTER PT HAD GOTTEN HER UP EARLIER IN THE MORNING. THE PATIENT STATES THAT SHE IS TOO NAUSEATED TO PARTICIPATE IN THERAPY AT THIS TIME. IS AGREEABLE TO AFTERNOON ATTEMPT.
--- NOTE | 2020-03-15 12:55 | PM.PN ---
Subjective Subjective: Interval history: Taking Tylenol for pain. Says other medicines are making her nauseous. Insistent on going home. She has had a previous hip fracture and managed okay. We reviewed the fact that the external fixator is a bit different. Physical therapy will work with her on position changes and we will see about getting a wheelchair. Per Dr. Andrews, plan is for internal fixation on March 28. Patient denies any chest pain or difficulty breathing. Vitals/I&O/Wt Last Vital Signs Temp 99.3 F 03/15/20 11:11 Pulse 86 03/15/20 11:11 Resp 18 03/15/20 11:11 BP 145/73 03/15/20 11:11 Pulse Ox 92 03/15/20 11:11 03/14/20 03/15/20 03/15/20 22:59 06:59 14:59 Intake Total 50 / 1210 50 / 50 Output Total 350 / 360 0 / 360 Balance -300 / 850 0 / 850 50 / 50 Weight last 48 hrs Weight 52.345 kg Weight 55.508 kg Weight 53.524 kg Physical Exam Const: OTHER: Alert, oriented x3, cooperative HENMT: OTHER: Mucous membranes moist Eye: OTHER: Pupils equally round Neck/C-Spine: OTHER: Supple Resp: OTHER: Clear to auscultation bilaterally Cardio: OTHER: Regular rate and rhythm GI: OTHER: Abdomen soft, nontender, positive bowel sounds Extremity: NARRATIVE EXTREMITY EXAM: Left lower extremity with external fixator in place. Dressing with some dried blood noted distally, signs cleaner proximally. No change to foot edema, moves toes, pulse intact with brisk capillary refill. Neuro: OTHER: Face symmetric, speech clear Psych: OTHER: Normal affect Data : 03/14/20 05:35 03/14/20 05:35 A&P Assessment and plan (1) Fracture of left tibial plateau: Post op day 1 with external fixation by Dr. Andrews From mechanical fall Will need additional surgery on March 28 after swelling has gone down We will need DVT prophylaxis in the interim Not currently willing to consider skilled placement Status: Acute Qualifiers: Encounter type: initial encounter Fracture type: closed Qualified Code(s): S82.142A - Displaced bicondylar fracture of left tibia, initial encounter for closed fracture (2) Osteoporosis: Chronically on calcitonin as well as calcium plus vitamin D Status: Acute Qualifiers: Osteoporosis type: unspecified (3) Chronic cough: Status: Acute Additional A&P Information Takes multiple vitamins Pain control with Tylenol, not wanting narcotics presently due to nausea Will order some tramadol and see if that is any better although I am not sure she will take it Nausea medication as needed Stool softners On calcium+D as well as calcitonin at home, will continue Case management to see what kind of home health we can get in what timeframe. I am a bit concerned about her going home with home health and not having access to assistance due to delays in initiation of therapy currently. She is not willing to consider skilled placement temporarily until her surgery as she feels like her and her can manage the external fixator at home Lovenox for DVT prophylaxis Supportive care otherwise Disposition pending arrangements of outpatient home health care >> I do not feel comfortable with patient going home without a fairly soon visit by home health given the extent of the external fixator and need for anticoagulation. Many home health agencies are currently more than a week out before they can get in to see the patient. A wheelchair has been ordered and we will continue to evaluate how she does with the fixation. Attestations Medical Necessity Statement*: Requires ongoing inpatient stay for management status post placement of external fixator until we can make appropriate arrangements for discharge home with some home health. Coding Level of Care Code Acute Multiple Knife Edge Trimmer Operator for Pili Reyez Diagnoses Fracture of left tibial plateau S82.142A Encounter type: initial encounter Fracture type: closed Osteoporosis M81.0 Osteoporosis type: unspecified Chronic cough R05
--- NOTE | 2020-03-15 13:21 | ANE.PACU2 ---
Inpatient post-anesthesia follow up: Airway intact: Yes Vital signs: Temperature 99.3 F Pulse Rate [Monito r] 89 Pulse Rate 86 Respiratory Rate 18 Blood Pressure [Ri ght Arm] 186/78 Blood Pressure 145/73 Pulse Oximetry 92 Oxygen Delivery Me thod Room Air Oxygen Flow Rate 8 Fraction of Inspir ed Oxygen Hydration adequate: Yes Nausea and vomiting: No Pain level: 4 Mental status: Baseline
[2020-03-15] MEDS: cyclobenzaprine 10 mg Tablet PO (20:27)
[2020-03-15] MEDS: enoxaparin 40 mg/0.4 mL Syringe SUBCUT (20:27)
[2020-03-15] MEDS: morphine 4 mg/mL SDV 1 mL 1 MG IVP (22:25)
[2020-03-16] VITALS (7 sets, daily range): BP systolic 139–161; BP diastolic 72–78; PULSE 79–100; RESP 16–18; TEMP 36.6–37.4; O2SAT 94–96
[2020-03-16] MEDS: morphine 4 mg/mL SDV 1 mL 1 MG IVP (01:17)
[2020-03-16 03:07] LABS: Basophils % 0.3 %; Eosinophils # 0.1 10^3/uL (0.0-0.8); Eosinophils % 0.9 %; Hematocrit 32.7 % (37.0-47.0); Hemoglobin 10.3 g/dL (11.5-15.3); Lymphocytes # 1.5 10^3/uL (0.8-4.8); Lymphocytes % 18.9 %; Mean Corpuscular HGB Conc 31.5 g/dL (30.0-36.0); Mean Corpuscular Hemoglobin 29.5 pg (28.0-34.0); Mean Corpuscular Volume 93.7 fL (81-99); Monocytes # 0.8 10^3/uL (0.2-0.9); Monocytes % 10.7 %; Neutrophils # 5.44 10^3/uL (1.8-7.7); Neutrophils % 68.9 %; Nucleated Red Blood Cells % 0 %; Platelet Count 176 10^3/cmm (130-400); Red Blood Count 3.49 10^6/uL (4.1-5.3); Red Cell Distribution Width 12.9 % (12.1-15.1); White Blood Count 7.9 10^3/uL (4.0-10.0)
[2020-03-16 03:29] LABS: Anion Gap 11.7 (5-19); Blood Urea Nitrogen 9 mg/dL (8-23); Carbon Dioxide 30 mmol/L (22-29); Chloride 101 mmol/L (98-107); Glucose 81 mg/dL (65-115); Osmolality Calculated 286 mOsm/kg (285-295); Potassium 3.7 mmol/L (3.5-5.1); Sodium 139 mmol/L (136-145)
[2020-03-16 03:56] LABS: Calcium 8.7 mg/dL (8.5-10.5)
--- NOTE | 2020-03-16 08:10 | PM.DCS ---
Discharge Providers Date of Admission: 03/13/20 13:50 Date of Discharge: March 16, 2020 Attending Provider at Admission: Gilmer Avila Attending Provider at Discharge: Linda Adler MD Primary Care Provider: Cheo Pastrana Jr, MD Diagnoses at Discharge Discharge Diagnosis (1) Fracture of left tibial plateau: Status: Acute Qualifiers: Encounter type: initial encounter Fracture type: closed Qualified Code(s): S82.142A - Displaced bicondylar fracture of left tibia, initial encounter for closed fracture (2) History of surgery on extremity: Status: Acute Permanent problem details: Uniplanar external fixation of the left lower extremity for tibial plateau fracture on 03/14/2020 (3) Osteoporosis: Status: Chronic Permanent problem details: on calcitonin and calcium + vitamin D Qualifiers: Encounter type: initial encounter Osteoporosis type: unspecified Presence of current pathological fracture: with current pathological fracture Qualified Code(s): M80.00XA - Age-related osteoporosis with current pathological fracture, unspecified site, initial encounter for fracture (4) Chronic cough: Status: Chronic Reason for Visit Reason for Visit: LEFT LOWER LEG PAIN S/P FALL Hospital Course Hospital Course Mrs. Pavon is an active 79-year-old who had a mechanical fall and sustained a tibial plateau fracture to the left lower extremity. She underwent external fixation by Dr. Andrews on March 14. Plan is for open reduction internal fixation on March 28. This will allow for decreased edema in the interim. Patient has done well postoperatively under the circumstances and is thus far managing the external fixator okay. She wants to go home with her . Placement was offered to assist with management between now and more definitive surgical repair but she declined. She has had prior hip fracture and feels like her and her can manage this. We were able to get arrangements with home health care. They will see her on Saturday. Wheelchair has been ordered to assist her with nonweightbearing status. Pain medications made her quite nauseated and she has thus far been taking Tylenol only. I did order some tramadol though she has not taken any. She will be on Lovenox for DVT prophylaxis. I had pharmacy review her vitamin list and there are no known interactions with Lovenox from these. She can continue as previously taking. Mrs. Pavon should continue her calcium plus vitamin D and calcitonin. Aspirin currently held in anticipation of surgery and current anticoagulation. She will have a planned readmission for surgical repair on March 28 according to current plans. Patient was doing well on the day of admission and eager to get home. She seems to understand the challenge for for her. She was given an opportunity to ask questions. Physical Exam Const: OTHER: Alert, oriented x3, cooperative Resp: OTHER: Clear to auscultation bilaterally Cardio: OTHER: Regular rate and rhythm GI: OTHER: Abdomen soft Extremity: NARRATIVE EXTREMITY EXAM: Left lower extremity with external fixator in place. Dressing with some dried blood noted distally, filter cleaner proximally. No change to foot edema, moves toes, pulse intact with brisk capillary refill. Neuro: OTHER: Face symmetric, speech clear Discharge Data Data Completed and Pending: Completed Studies During Hospitalization Category Date Time Status CT knee LT wo con * [id number] Routine Cat Scan 03/14/20 08:51 Completed XR chest 1V tabitha ble [id number] Stat Exams 03/13/20 13:43 Completed XR knee LT 1-2V 7 3560 Routine Exams 03/14/20 Completed XR knee LT 3V* 73 562 Stat Exams 03/13/20 13:07 Completed XR tibia fibula L T 2V [id number] Stat Exams 03/13/20 13:07 Completed Labs from last 24 hours 03/16/20 03/16/20 02:15 02:15 WBC 7.9 RBC 3.49 L Hgb 10.3 L Hct 32.7 L MCV 93.7 MCH 29.5 MCHC 31.5 RDW 12.9 Plt Count 176 MPV 11.0 H Neut % (Auto) 68.9 Lymph % (Auto) 18.9 [place] % (Auto) 10.7 Eos % (Auto) 0.9 Baso % (Auto) 0.3 Neut # (Auto) 5.44 Lymph # (Auto) 1.5 [place] # (Auto) 0.8 Eos # (Auto) 0.1 Baso # (Auto) 0.0 Nucleated RBC % (a uto) 0 Nucleated RBCs # 0.0 Sodium 139 Potassium 3.7 Chloride 101 Carbon Dioxide 30 H Anion Gap 11.7 BUN 9 Creatinine 0.4 L GFR Calculation Not Reportable Glucose 81 Calculated Osmolal ity 286 Calcium 8.7 Vitals: Last Vital Signs Temp 99.3 F 03/16/20 07:27 Pulse 97 11/25/20 07:27 Resp 18 03/16/20 07:27 BP 142/72 03/16/20 07:27 Pulse Ox 95 03/16/20 07:27 Discharge Plan Discharge Patient Disposition: Home Health Sv w Plan Readm Condition: Stable Prescriptions: New enoxaparin 40 mg/0.4 mL syringe 40 mg SUBCUT DAILY Qty: 14 RF: 0 acetaminophen 325 mg Tablet 650 mg PO Q6H PRN (Reason: Mild/Mod Pain Or Temp >/= 101) Qty: 100 RF: 0 tramadol 50 mg tablet 50 mg PO Q6H PRN (Reason: moderate to severe pain) Qty: 30 RF: 0 Zofran 4 mg tablet 4 mg PO Q8H PRN (Reason: nausea and vomiting) Qty: 20 RF: 0 Continued multivitamin Tablet 1 tab PO DAILY RF: 0 calcitonin (salmon) 200 unit/actuation spray,non-aerosol See Rx Instructions .ROUTE .COMPLEX RF: 0 pantoprazole 40 mg tablet,delayed release (DR/EC) 40 mg PO DAILY RF: 0 Virtussin AC 10-100 mg/5 mL liquid 5 ml PO Q4H PRN (Reason: Cough) RF: 0 Calcium + D 1 tab PO DAILY RF: 0 Cayenne Tab 1 tab PO DAILY RF: 0 Cinnamon 1 cap PO DAILY RF: 0 Vitamin C 1 tab PO DAILY RF: 0 Vitamin D3 1 cap PO DAILY RF: 0 beta carotene 1 cap PO DAILY RF: 0 cranberry 1 tab PO DAILY RF: 0 lutein 1 cap PO DAILY RF: 0 lysine 1 cap PO DAILY RF: 0 vitamin E 1 cap PO DAILY RF: 0 zinc 1 cap PO DAILY RF: 0 Held aspirin 81 mg Tablet,Delayed Release (Dr/Ec) 81 mg PO DAILY RF: 0 Hold Instructions: Resume on 03/29/20. Discharge Orders: Discharge Order (Routine); Ordered 03/16/20 Ordered By: Linda Adler Other Ambulatory Orders: DME: Wheelchair (Order) Location: None Selected Ordered By: Linda Adler [place] [facility] [place] [facility] [place] [facility] [[place] Ander Andrews DO [Physician] - 03/28/20 (To have next surgery on 03/28/2020) Cheo Pastrana Jr, MD [Primary Care Provider] - 03/24/20 1:30 pm Discharge Diet: Advance as tolerated Discharge Activity: As per PT/OT instructions Patient Instructions: Tramadol (By mouth), Ondansetron (By mouth), Enoxaparin (Injection), Leg Fracture (GEN), How to Give a Subcutaneous Injection (GEN), External Fixation of an Ankle Fracture (DC) Activity Restrictions/Additional Instructions: Information sheet regarding external fixation has been included in your discharge packet. It states for ankle fracture but the care of the external fixator within this document is similar. Dr. Andrews placed an external fixator to stabilize her leg currently. Plan is for more definitive repair surgically on March 28. You are to be nonweightbearing to the left lower extremity in the meantime. Follow instructions provided by physical and Occupational Therapy. Home health has been arranged to assist in management in the interim. They will come out and see you on Saturday, March 18. Do not get the extremity wet. Unless otherwise directed you will need to sponge bath for the time being. Lovenox has been added to help decrease risk of developing blood clot between now and surgery. Do not take this within 24 hours of planned surgery. Prescription provided for tramadol to help with more severe pain as needed. I also provided a prescription for some Zofran to help in the event that you have any nausea. Aspirin is currently held in anticipation of surgery but other medications and vitamins can be continued. Discharge Attestations Time Spent in Discharge Care*: greater than 30 min Specific Discharge Activities: educating patient, educating and/or supporting family/caregiver, discussing with pcp/other providers, discussing with casework manager/social workers/dc planners, documenting/other paperwork and evaluating patient/reviewing data Status at Discharge: Cognitive status at discharge: cognitively intact, Behavioral status at discharge: cooperative, Functional status at discharge: other (non weightbearing to left lower extremity, use wheelchair) Overall status at discharge: patient is not back to baseline Quality Metrics Clinical Quality Measures During this hospital stay, did patient experience: None Coding Level of Care Code 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
--- NOTE | 2020-03-16 08:16 | P.PN_ITS ---
Subjective Subjective: Interval history: Patient pain is better controlled. She is working with therapy currently. Vitals/I&O/Wt Last Vital Signs Temp 99.3 F 03/16/20 07:27 Pulse 97 03/16/20 07:27 Resp 18 03/16/20 07:27 BP 142/72 03/16/20 07:27 Pulse Ox 95 03/16/20 07:27 03/15/20 03/16/20 03/16/20 22:59 06:59 14:59 Intake Total 240 / 410 60 / 470 Output Total 500 / 500 Balance -260 / -90 60 / -30 Weight last 48 hrs Weight 111 lb 12.8 oz Weight 115 lb 6.4 oz Physical Exam Narrative: EXAM NARRATIVE: Dressing has some drainage. She is moving her toes sensation intact. Data : 03/16/20 02:15 03/16/20 02:15 A&P Additional A&P Information Tibial plateau fracture. I discussed with the nurses doing pin care twice daily with soap and water. She should do this at home as well. Plan is to do surgery on March 28. 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
[2020-03-16] MEDS: acetaminophen 325 mg Tablet 650 MG PO (08:45)
[2020-03-16] MEDS: calcium carb-vit d 600mg/400unit 1 Tablet 1 EACH PO (08:45)
[2020-03-16] MEDS: cyclobenzaprine 10 mg Tablet PO (08:45)
[2020-03-16] MEDS: pantoprazole DR 40 mg Tablet PO (08:45)
[2020-03-16] MEDS: aspirin 81 mg EC Tablet PO (08:46)
--- NOTE | 2020-03-16 11:33 | PC.SOCIAL ---
IMM Update Pg. 2 of IMM updated and reviewed with patient who verbalized understanding. Copy provided.
--- NOTE | 2020-03-16 11:46 | PC.NURSE ---
cleaned around ext. fix. and replaced dressings. pt tolerated well.
--- NOTE | 2020-03-16 12:04 | PC.NURSE ---
pt received discharge paperwork as well as home wheelchair. instructed pt that prescriptions will need to be filled at [facility] in [place], [place]. all questions answered.
--- NOTE | 2020-03-16 12:06 | PC.NURSE ---
pt has prescription for tramadol at bedside.
== END 2020-03-16 13:00 | disposition home health service (06) | DRG 494 ==
LOC: ER 14:03 → MEDSURG 14:37
PROVIDERS: Orthopaedic Surgery; Admitting Provider Internal Medicine; Emergency Provider Emergency Medicine; PCP Family Medicine; Visit Provider Hospitalist
PROC: 0QHH35Z Insertion of External Fixation Device into Left Tibia, Percutaneous Approach (ICD-10-PCS; principal; 2020-03-14 08:10)
DX: M80.862A Other osteoporosis with current pathological fracture, left lower leg, initial encounter for fracture (principal); M80.062A Age-related osteoporosis with current pathological fracture, left lower leg, initial encounter for fracture; W01.0XXA Fall on same level from slipping, tripping and stumbling without subsequent striking against object, initial encounter; Z96.649 Presence of unspecified artificial hip joint; R05 Cough
CPT/HCPCS: 12345; 36415; 71045; 73560; 73562; 73590; 73700; 76000; 80048; 80053; 81001; 83735; 85025; 85610; 85730; 86900; 93005; 96372; 96375; 97110; 97162; 97166; 97530; 99283; C1713; J0131; J0330; J0690; J1100; J1650; J2270; J2405; J2704; J3010; J3490; J7030

== ENCOUNTER 2020-03-25 15:35 | Inpatient (IN) | payer MEDICARE, OTHER, SELFPAY ==
[2020-03-24 07:05] VITALS: BMI 20.2
[2020-03-25] VITALS (8 sets, daily range): BP systolic 133–163; BP diastolic 67–75; PULSE 80–101; RESP 14–20; TEMP 36.3–37.2; O2SAT 93–98
--- NOTE | 2020-03-25 | SCC_ITS ---
Procedure Done: 1. ORIF left tibial plateau 2. Removal ex fix left tibial plateau 70.7 seconds of fluoroscopic guidance, for a cumulative dose of 3.91 mGy, was provided to Dr. Andrews by the radiology department. C-arm images of the LEFT knee were saved for the patient's permanent record. [facility]
--- NOTE | 2020-03-25 | XR_ITS ---
WS: [id number] INTRAOPERATIVE TECHNIQUE: 3 Spot fluoroscopic images for intraoperative purposes. FLUOROSCOPY TIME: 69.6 seconds CLINICAL INFORMATION: orif left tibia COMPARISON: None. FINDINGS: Intraoperative changes plate and screw fixation proximal tibia. Hardware appears in good position. No nfixated fibular head fracture. XR/XR knee LT 1-2V [id number] IMPRESSION: Images obtained for intraoperative purposes.
[2020-03-25] MEDS: sodium chloride 0.9% 1,000 ML 30 ML IV (09:02)
--- NOTE | 2020-03-25 09:04 | ANES.PREANE2 ---
Pre-Anesthetic Assessment Pre-Anesthetic Assessment: Height/Weight: Height 1.63 m Weight 53.524 kg Temp Pulse Resp BP Pulse Ox 98.2 F 86 20 H 139/75 97 03/25/20 08:24 03/25/20 08:24 03/25/20 08:24 03/25/20 08:24 03/25/20 08:24 Preop Diagnosis: left tibial plateau fracture Proposed Procedure: Operation Date: 03/25/20 09:40 Proposed Procedures p ORIF Tibial Plateau w/ removal of ex fix(Left) - Ander Andrews, DO Was Beta Valdo taken within 24 hours: N/A Last intake: Intake Last Liquid Date 03/24/20 Last Liquid Time 20:00 Last Solid Date 03/24/20 Last Solid Time 16:00 Social: Social History: No alcohol and No tobacco Exam: Pre-Anes Outpt Exam: alert, oriented x 3, clear to auscultation bilaterally and regular rate & rhythm Airway: Submandibular: WNL Cervical ROM: WNL MP: 2 Dentition: Full Pulmonary: Pulmonary: None reported CV/HEM: CV/HEM: None reported : : None reported Hepatic: Hepatic: None reported GI: GI: GERD Metabolic: Metabolic: None reported Musc/skel: Musc/skel: None reported Neuropsych: Neuropsych: None reported Anesthetic Plan: ASA status: 2 Anesthesia: Regional (specify below) Other: SAB Risk of > 500 ml blood loss (7ml/kg in children): No Meds/Allergies Current Medications: Current Medications Generic Name Dose Route Start Last Admin Trade Name Freq PRN Reason Stop Dose Admin Sodium Chloride 1,000 mls @ 30 ml s/hr 03/25/20 08:30 03/25/20 09:02 Sodium Chloride 0.9% IV 03/26/20 08:29 30 mls/hr .Q24H ELVIS Administration PFSH Anesthesia PFSH: Medical History (Updated 03/17/20 @ 00:00 by ) Chronic cough Osteoporosis on calcitonin and calcium + vitamin D Surgical History (Updated 03/16/20 @ 08:13 by Linda Adler MD) History of hip replacement History of surgery on extremity (03/14/20) Uniplanar external fixation of the left lower extremity for tibial plateau fracture on 03/14/2020 Family History Mother CHF (congestive heart failure) Social History Alcohol intake: never Lives independently: Yes Household members: spouse Current occupational status: retired Data Anesthesia Cardiac Studies: No Data to Display
--- NOTE | 2020-03-25 12:39 | W.PM.OPSUD ---
Surgery/Procedure H&P Update DATE OF PROCEDURE: March 25, 2020 DATE H&P PERFORMED: 03/13/20 H&P UPDATE INFORMATION: I have reviewed H&P completed within last 30 days, I have examined patient prior to procedure and No changes to prior documentation PREOP DIAGNOSIS: left tibial plateau fracture PLANNED PROCEDURE: Operation Date: 03/25/20 09:40 Proposed Procedures p ORIF Tibial Plateau w/ removal of ex fix(Left) - Ander Andrews DO
--- NOTE | 2020-03-25 14:39 | PM.OP ---
Operative Report Date of procedure: March 25, 2020 Pre-op Diagnosis: left tibial plateau fracture Post-op diagnosis: same Procedure Done: 1. ORIF left tibial plateau 2. Removal ex fix left tibial plateau Surgeon: Ander Andrews Anesthesia: General Estimated blood loss (mL): 25 Tourniquet time (min): 45 Condition: stable Disposition: PACU Procedure: Patient is brought to the operative suite placed in supine position or his bed well-padded patient was done under spinal anesthesia. External fixator rods and clamps were removed Schanz pins were removed then he was brought to prepping draping the leg was leg was prepped and draped as skins was made on the lateral aspect to plateau fracture was exposed reduced and a Jenna proximal lateral tibial plate was placed cortical screws placed in the shaft first to compress the plate to the bone and then multiple locking screws were placed throughout the plate and then another screw locking screws placed in the shaft wounds were irrigated AP lateral fluoroscopy ensured the fracture and hardware in preposition the fascia was then closed with 0 Vicryl skin closed with 2-0 Vicryl and nylon sterile dressings applied patient transferred to the PACU in stable condition.
--- NOTE | 2020-03-25 15:16 | P.CONIM_ITS ---
Providers/Reason For Consult Consulting Physican/Specialty*: Marian Salas MD, Hospitalist Reason for Consult*: Medical management Requesting Physcian: Dr. Andrews Attending Physician: Ander Andrews DO Primary Care Provider: Cheo Pastrana Jr, MD History of Present Illness History of Present Illness Freida Pavon is a 79 year old female with PMHx noted below presents for scheduled removal of external fixator and ORIF of left tibial plateau fracture sustained on 03/13/2020 following a mechanical fall. Due to extent of edema definitive treatment was postponed and she had placement of uniplanar external fixator. She opted to return home with her until today for her planned surgery. She is encountered in the medical surgical floor, upon return from postop area. Is alert and oriented, very pleasant, easy to engage in c onversation. Was noted to have persistent dry cough during procedure, received spinal anesthesia. From patient's description this seems to be a chronic cough, unclear etiology though she was recently started on PPI due to suspicion for underlying reflux. She is not on any ARB or JOSESITO inhibitors, has no known underlying lung disease, is a non-smoker. Is reporting some pain and is requesting some pain medication the wants to have half prescribed dose of tramadol as when she takes the full dose which is 50 mg she typically has quite a bit of abdominal discomfort and nausea. Vital signs so far have been stable. Hospitalist consult is requested due to noted cough during procedure as well as medical management postop. Bulky dressing is present on left lower extremity. EBL is estimated at 50 mL and she received 500 mL of crystalloids during procedure. She is to be [id number] at this time and will have PT/OT evaluations tomorrow. Review of Systems Const: Denies: fever(s), chills, change in appetite or fatigue Eyes: Denies: change in vision ENMT: Reports: dry mouth; Denies: odynophagia or hoarseness Card: Denies: chest pain, swelling of feet/ankles, lightheadedness or syncope Resp: Reports: non-productive cough (chronic); Denies: dyspnea, productive cough or chest congestion GI: Denies: abdominal pain, nausea, vomiting, hematemesis or hematochezia : Denies: hematuria Musc: Denies: back pain Skin/Breast: Denies: rash Neuro: Denies: numbness in extremities or weakness in extremities Psych: Denies: anxiety Meds/Allergies Home Medications and Allergies Home Medications Medication Instructions Recorded Confirmed Last Taken Type Calcium + D 1 tab PO DAILY 03/13/20 03/25/20 03/24/20 History [place] Tab 1 tab PO DAILY 03/13/20 03/25/20 03/24/20 History Cinnamon 1 cap PO DAILY 03/13/20 03/25/20 03/24/20 History Vitamin C 1 tab PO DAILY 03/13/20 03/25/20 03/24/20 History Vitamin D3 1 cap PO DAILY 03/13/20 03/25/20 03/24/20 History aspirin 81 mg PO DAILY 03/13/20 03/25/20 03/18/20 History beta carotene 1 cap PO DAILY 03/13/20 03/25/20 03/24/20 History calcitonin (salmon) See Rx Instructions .ROUTE .COMPLEX 03/13/20 03/25/20 03/11/20 History codeine-guaifenesin [Virtussin AC] 5 ml PO Q4H PRN 03/13/20 03/25/20 03/12/20 History cranberry 1 tab PO DAILY 03/13/20 03/25/20 03/24/20 History lutein 1 cap PO DAILY 03/13/20 03/25/20 03/24/20 History lysine 1 cap PO DAILY 03/13/20 03/25/20 03/24/20 History multivitamin 1 tab PO DAILY 03/13/20 03/25/20 03/24/20 History pantoprazole 40 mg PO DAILY 03/13/20 03/25/20 03/24/20 History vitamin E 1 cap PO DAILY 03/13/20 03/25/20 03/24/20 History zinc 1 cap PO DAILY 03/13/20 03/25/20 03/24/20 History enoxaparin 40 mg SUBCUT DAILY #14 dose 03/15/20 03/25/20 03/23/20 Rx ondansetron HCl [Zofran] 4 mg PO Q8H PRN #20 tab 03/15/20 03/25/20 03/16/20 Rx tramadol 50 mg PO Q6H PRN #30 tab 03/15/20 03/25/20 03/23/20 Rx Allergies Allergy/AdvReac Type Severity Reaction Status Date / Time Sulfa (Sulfonamide Allergy ALGY-Hives Verified 03/13/20 14:07 Antibiotics) PFSH Acute PFSH: Medical History Chronic cough Osteoporosis on calcitonin and calcium + vitamin D Surgical History History of hip replacement History of surgery on extremity (03/14/20) Uniplanar external fixation of the left lower extremity for tibial plateau fracture on 03/14/2020 Family History Mother CHF (congestive heart failure) Social History Alcohol intake: never Lives independently: Yes Household members: spouse Current occupational status: retired Vitals/I&O/Wt Last Vital Signs Temp 98.2 F 03/25/20 08:24 Pulse 86 03/25/20 08:24 Resp 20 H 03/25/20 08:24 BP 139/75 03/25/20 08:24 Pulse Ox 97 03/25/20 08:24 03/25/20 03/25/20 03/25/20 06:59 14:59 22:59 Intake Total 60 / 60 Balance 60 / 60 Weight last 48 hrs Weight 53.524 kg Physical Exam Const: COMMON NORMALS: no acute distress, patient oriented x3 and alert GENERAL APPEARANCE: cooperative and comfortable NUTRITIONAL APPEARANCE: thin ORIENTATION/CONSCIOUSNESS: Yes awake OTHER: -looks younger than stated age HENMT: COMMON NORMALS: normocephalic, atraumatic, hearing grossly normal bilaterally and moist oral mucous membranes HEAD & SCALP: normocephalic and atraumatic Eye: COMMON NORMALS: Equal, round and reactive pupils present, EOMs intact bilaterally and conjunctivae normal CONJUNCTIVA: Yes conjunctivae normal PUPIL: Yes Equal, round and reactive pupils present Neck/C-Spine: COMMON NORMALS: full ROM GENERAL: Yes normal visual inspection and Yes trachea midline Resp: COMMON NORMALS: normal respiratory effort, No retractions, No use of accessory muscles and clear to auscultation bilaterally EFFORT & INSPECTION: Yes able to speak in complete sentences, Yes symmetric chest movement and No tachypneic AUSCULTATION: clear to auscultation bilaterally OTHER: -on RA Cardio: COMMON NORMALS: regular rate, regular rhythm, S1 normal heart sound present, S2 normal heart sound present and No murmurs present (Cardio) RATE: regular rate RHYTHM: regular rhythm HEART SOUNDS: S1 normal heart sound present and S2 normal heart sound present GI: COMMON NORMALS: Normal to inspection, nondistended, normoactive bowel sounds present, Soft to palpation and non-tender PALPATION: Yes Soft to palpation Extremity: NARRATIVE EXTREMITY EXAM: -bulky dressing on LLE; gross sensation intact Neuro: COMMON NORMALS: patient oriented x3, moves all extremities, no focal motor deficits and no sensory deficits noted SENSORIUM/ORIENTATION: Yes alert Psych: COMMON NORMALS: mental status grossly normal, Normal thought process present, cooperative, normal affect and speech normal SPEECH: Yes normal speech THOUGHT PROCESS: Normal thought process present Skin: COMMON NORMALS: no rashes or lesions noted, no jaundice, no petechiae and no mottling GENERAL SKIN EXAM: no rashes or lesions noted Data Other Data: Other data: -reviewed pre-op labs, imaging A&P Assessment and plan (1) Fracture of left tibial plateau: -s/p mechanical fall on 03/13 -s/p uniplanar external fixator on 03/14 -definitive surgery postponed due to degree of edema. Has now had L tibial plateau ORIF and removal of external fixator by Dr. Andrews -spinal anesthesia, noted to be coughing which per patient is a chronic cough. Order CXR to evaluate for possible aspiration though low suspicion for this -antitussives PRN -pain control as needed -PT/OT evaluations -complete riaz-op antibiotics -EBL-25 mL; received 500 mL of fluid -fall precautions -Lovenox for DVT ppx -monitor vital signs Status: Acute Qualifiers: Encounter type: initial encounter Fracture type: closed Qualified C ode(s): S82.142A - Displaced bicondylar fracture of left tibia, initial encounter for closed fracture (2) Osteoporosis: Status: Chronic Qualifiers: Osteoporosis type: unspecified Presence of current pathological fracture: with current pathological fracture Encounter type: initial encounter Qualified Code(s): M80.00XA - Age-related osteoporosis with current pathological fracture, unspecified site, initial encounter for fracture (3) Chronic cough: -previously COVID-19 testing done, negative -recently started on PPI Status: Chronic (4) History of surgery on extremity: Status: Acute Additional A&P Information -Advanced age -CLD for now, advance as tolerated -GI ppx with PPI -DVT ppx with lovenox -Dispo: home -Code status: FULL code -Thank you for this consult, will continue to follow along with you Consult Attestations Medical Necessity Statement: Patient requires hospitalization for post-op management status post ORIF of left tibial plateau fracture and removal of external fixator, with noted persistent dry cough during procedure requiring further evaluation. Time Spent in Patient Care: Greater than 35 minutes (>than 50% of time spent in counselling and/or direct pt care on unit) . 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
--- NOTE | 2020-03-25 15:22 | XRR_ITS ---
PROCEDURE INFORMATION: Exam: XR Chest, 1 View Exam date and time: 03/25/2020 3:54 PM Age: 79 years old Clinical indication: Cough; Additional info: Cough during surgery-knee surgery TECHNIQUE: Imaging protocol: XR of the chest Views: 1 view. COMPARISON: CR (CHEST, ) 03/13/2020 1:55 PM FINDINGS: Lungs: There is hyperinflation with interstitial prominence compatible COPD with fibrosis. There is very subtle hazy density in the right lower lobe that may reflect mild pneumonitis, atelectasis or increased density due to overlying breast tissue. No airspace consolidation in the left lower lobe. There is bilateral bronchiectasis without any definite mucous plugging. Pulmonary vascularity is within normal limits. Pleural space: Unremarkable. No pleural effusion. No pneumothorax. Heart/Mediastinum: Unremarkable. No cardiomegaly. Bones/joints: No acute abnormality. XR/XR chest 1V portable [id number] IMPRESSION: There is very subtle hazy density in the right lower lobe that may reflect mild pneumonitis, atelectasis or increased density due to overlying breast tissue. The remainder of the lungs are clear with emphysematous changes and fibrosis.
[2020-03-25] MEDS: ondansetron 4 MG Tablet PO (16:14)
[2020-03-25] MEDS: HYDROcodone-acetaminophen 5-325 mg Tablet PO ×2 (16:14→22:15)
[2020-03-25] MEDS: ketorolac 30 mg/mL INJ 15 MG IVP (16:15)
[2020-03-25] MEDS: cyclobenzaprine 10 mg Tablet 5 MG PO (16:50)
--- NOTE | 2020-03-25 17:16 | ANE.PACU2 ---
Inpatient post-anesthesia follow up: Airway intact: Yes Vital signs: Temperature 97.3 F Pulse Rate 89 Respiratory Rate 18 Blood Pressure 163/75 Pulse Oximetry 93 Oxygen Delivery Me thod Room Air Oxygen Flow Rate Fraction of Inspir ed Oxygen Hydration adequate: Yes Nausea and vomiting: No Pain level: 1 Mental status: Baseline
--- NOTE | 2020-03-25 17:42 | PC.PT ---
PT note; nursing working with patient at this time, nursing states pain is 10 over 10 post surgery; will reattempt evaluation tomorrow morning.
[2020-03-25] MEDS: morphine 4 mg/mL SDV 1 mL 2 MG IVP (20:14)
[2020-03-26] VITALS (9 sets, daily range): BP systolic 114–162; BP diastolic 63–79; PULSE 86–103; RESP 16–18; TEMP 36.4–37; O2SAT 92–97
[2020-03-26] MEDS: enoxaparin 40 mg/0.4 mL Syringe SUBCUT (03:32)
[2020-03-26] MEDS: benzonatate 100 mg Capsule PO (07:53)
[2020-03-26] MEDS: TRAMadol 50 mg Tablet 25 MG PO ×3 (07:53→21:18)
[2020-03-26] MEDS: pantoprazole DR 40 mg Tablet PO (07:54)
[2020-03-26] MEDS: aspirin 81 mg EC Tablet PO (07:56)
--- NOTE | 2020-03-26 08:05 | PM.PN ---
Subjective Subjective: Interval history: patient doing well this AM. Pain controlled Vitals/I&O/Wt Last Vital Signs Temp 97.8 F 03/26/20 08:03 Pulse 102 H 03/26/20 08:03 Resp 18 03/26/20 08:03 BP 162/79 03/26/20 08:03 Pulse Ox 92 03/26/20 08:03 03/25/20 03/26/20 03/26/20 22:59 06:59 14:59 Intake Total 960 / 1020 240 / 1260 Output Total 500 / 520 Balance 960 / 1000 -260 / 740 Physical Exam Narrative: EXAM NARRATIVE: resting comfortably in bed dressing intact A&P Additional A&P Information POD # 1 R tibial [place] ORIF Ice and elevate Planning on D/C tomorrow Attestations Medical Necessity Statement*: pt Coding Level of Care Code Acute Report Specialist for [facility]
[2020-03-26] MEDS: ketorolac 30 mg/mL INJ 15 MG IVP (08:07)
--- NOTE | 2020-03-26 12:38 | P.PN_ITS ---
Subjective Subjective: Interval history: Required 2 tabs of hydrocodone for pain control overnight. Hemodynamically stable, afebrile, requiring some supplemental oxygen support. Noted chest x-ray with possible right lower lobe pneumonitis, areas of fibrosis and emphysema, bilateral bronchiectasis. She is POD # 1 s/p removal of external fixator and ORIF for L tibial plateau fracture. Resting quietly in bed, did well with therapy. Plan for discharge tomorrow per Dr. Andrews. Medications: Reviewed: Yes Medication Review Details: Active Medications Generic Name Dose Route Start Last Admin Trade Name Freq PRN Reason Stop Dose Admin Hydrocodone Bitart /Acetaminophen 1 - 2 tab 03/25/20 14:45 03/25/20 22:15 Hydrocodone-Acet aminophen 5-325 Mg Tablet PO 2 tab Q4H PRN Administration BREAKTHROUGH PAIN Aspirin 81 mg 03/26/20 09:00 03/26/20 07:56 Aspirin 81 Mg Ec Tablet PO 81 mg DAILY ELVIS Administration Benzonatate 100 mg 03/25/20 15:22 03/26/20 07:53 Benzonatate 100 Mg Capsule PO 100 mg TID PRN Administration COUGH Cyclobenzaprine HC l 5 mg 03/25/20 16:44 03/25/20 16:50 Cyclobenzaprine 10 Mg Tablet PO 5 mg TID PRN Administration MUSCLE SPASMS Enoxaparin Sodium 40 mg 03/26/20 02:49 03/26/20 03:32 Enoxaparin 40 Mg /0.4 Ml Syringe SUBCUT 40 mg Q24H ELVIS Administration Guaifenesin/Codein e Phosphate 5 ml 03/25/20 14:51 Guaifenesin-Code ine Udc 10 Ml PO Q4H PRN Cough Cefazolin Sodium 2 ,000 mg/ 60 mls @ 100 mls/ hr 03/25/20 21:00 03/26/20 05:56 Sodium Chloride IV 03/26/20 13:35 100 mls/hr Q8H ELVIS Administration Ketorolac Trometha mine 15 mg 03/25/20 14:45 03/26/20 08:07 Ketorolac 30 Mg/ Ml Inj IVP 15 mg Q6H PRN Administration Pain - See dose i nstructions Ondansetron HCl 4 mg 03/25/20 14:51 03/25/20 16:14 Ondansetron 4 Mg Tablet PO 4 mg Q8H PRN Administration nausea and vomiti ng Pantoprazole Sodiu m 40 mg 03/26/20 09:00 03/26/20 07:[address] 40 Mg Tablet PO 40 mg DAILY ELVIS Administration Tramadol HCl 25 mg 03/25/20 15:23 03/26/20 07:53 Tramadol 50 Mg T ablet PO 25 mg Q6H PRN Administration moderate to sever e pain Sulfa (Sulfonamide Antibiotics) Allergy (Verified 03/13/20 14:07) ALGY-Hives Vitals/I&O/Wt Last Vital Signs Temp 98.2 F 03/26/20 11:43 Pulse 99 03/26/20 11:43 Resp 18 03/26/20 11:43 BP 135/72 03/26/20 11:43 Pulse Ox 94 03/26/20 11:43 03/25/20 03/26/20 03/26/20 22:59 06:59 14:59 Intake Total 960 / 1020 240 / 1260 240 / 240 Output Total 500 / 520 200 / 200 Balance 960 / 1000 -260 / 740 40 / 40 Physical Exam Const: COMMON NORMALS: no acute distress, patient oriented x3 and alert GENERAL APPEARANCE: cooperative and comfortable NUTRITIONAL APPEARANCE: thin ORIENTATION/CONSCIOUSNESS: Yes awake OTHER: -looks younger than stated age HENMT: COMMON NORMALS: normocephalic, atraumatic, hearing grossly normal bilaterally and moist oral mucous membranes HEAD & SCALP: normocephalic and atraumatic Eye: COMMON NORMALS: Equal, round and reactive pupils present, EOMs intact bilaterally and conjunctivae normal CONJUNCTIVA: Yes conjunctivae normal PUPIL: Yes Equal, round and reactive pupils present Neck/C-Spine: COMMON NORMALS: full ROM GENERAL: Yes normal visual inspection and Yes trachea midline Resp: COMMON NORMALS: normal respiratory effort, No retractions, No use of accessory muscles and clear to auscultation bilaterally EFFORT & INSPECTION: Yes able to speak in complete sentences, Yes symmetric chest movement and No tachypneic AUSCULTATION: clear to auscultation bilaterally OTHER: -on RA Cardio: COMMON NORMALS: regular rate, regular rhythm, S1 normal heart sound present, S2 normal heart sound present and No murmurs present (Cardio) RATE: regular rate RHYTHM: regular rhythm HEART SOUNDS: S1 normal heart sound present and S2 normal heart sound present GI: COMMON NORMALS: Normal to inspection, nondistended, normoactive bowel sounds present, Soft to palpation and non-tender PALPATION: Yes Soft to palpation Extremity: NARRATIVE EXTREMITY EXAM: -bulky dressing on LLE; gross sensation intact Neuro: COMMON NORMALS: patient oriented x3, moves all extremities, no focal motor deficits and no sensory deficits noted SENSORIUM/ORIENTATION: Yes alert Psych: COMMON NORMALS: mental status grossly normal, Normal thought process present, cooperative, normal affect and speech normal SPEECH: Yes normal speech THOUGHT PROCESS: Normal thought process present Skin: COMMON NORMALS: no rashes or lesions noted, no jaundice, no petechiae and no mottling GENERAL SKIN EXAM: no rashes or lesions noted A&P Assessment and plan (1) Fracture of left tibial plateau: -s/p mechanical fall on 03/13 -s/p uniplanar external fixator on 03/14 -definitive surgery postponed due to degree of edema. Has now had L tibial plateau ORIF and removal of external fixator by Dr. Andrews; POD # 1 -spinal anesthesia, noted to be coughing which per patient is a chronic cough. CXR with noted mild RLL pneumonitis, bilateral bronchiectasis, in background of fibrosis and emphysema. Order duonebs PRN, pulmicort, IS -antitussives PRN -pain control as needed -PT/OT evaluations today -complete riaz-op antibiotics -EBL-25 mL; received 500 mL of fluid -fall precautions -Lovenox for DVT ppx -VSS; continue to monitor Status: Acute Qualifiers: Encounter type: initial encounter Fracture type: closed Qualified Code(s): S82.142A - Displaced bicondylar fracture of left tibia, initial encounter for closed fracture (2) Osteoporosis: Status: Chronic Qualifiers: Encounter type: initial encounter Osteoporosis type: unspecified Presence of current pathological fracture: with current pathological fracture Qualified Code(s): M80.00XA - Age-related osteoporosis with current pathological fracture, unspecified site, initial encounter for fracture (3) Chronic cough: -previously COVID-19 testing done, negative -recently started on PPI Status: Chronic (4) History of surgery on extremity: Status: Acute Additional A&P Information -Advanced age -advance to regular diet -GI ppx with PPI -DVT ppx with lovenox -Dispo: home with (resume services with [place]) -Code status: FULL code -plan for d/c tomorrow if stable Attestations Medical Necessity Statement*: Patient requires hospitalization for continued post-op care including pain control, therapy evaluations. Time Spent in Patient Care: 16 - 35 minutes (>than 50% of time spent in counselling and/or direct pt care on unit) . Coding Level of Care Code Acute Relations Manager for [facility] Fwd Exam Comprehensive Diagnoses Fracture of left tibial plateau S82.142A Encounter type: initial encounter Fracture type: closed Osteoporosis M80.00XA Encounter type: initial encounter Osteoporosis type: unspecified Presence of current pathological fracture: with current pathological fracture Chronic cough R05 History of surgery on extremity Z98.890
--- NOTE | 2020-03-26 15:03 | PC.CHAP ---
Pastoral Care Encounter/Spiritual Assessment Type of Contact [] Declined tub washer visit [] Patient/Family/Request visit [] Outpatient visit [] Follow-up visit [] Physician referral [] Code/Alert [x] Routine visit [] Staff referral [] Actively dying [] Patient sleeping [] Family support [] [] Out of room [] Palliative care [] [] Receiving care in room [] Pre-surgical visit [] Trauma [] Long length of stay [] ICU visit [] Other: Relational/Emotional Strength [] Patient feels connected with others/family/visitors/staff [] Distress [] Loneliness/isolation [] Abandonment Spirituality of Patient [] Person of Urvashi [] Attends Mormonism of their Urvashi [] Believes in Prayer [] Reads Bible or Cheondoism materials [] There are Spiritual issues to be addressed Milieu Therapist Interventions [] Prayer [] Active listening [] Non-anxious presence [] Spiritual/emotional support [] Crisis/trauma care [] Spiritual counseling [] Bereavement support [] Provided bereavement packet [] Provided Bible/devotional materials [] Provided toy/stuffed animal, coloring book to patient or family member [] Provided Communion [] Anointing/[place] [] Salvation [] Completed spiritual assessment [] Other: Impact on Illness or Injury [] Angry [] Fearful [] Anxious [] Often cries [] Exhaustion [] Unable to work [] Unable to attend sikh [] Unable to walk/stand [] Unable to read [] Unable to drive [] Unable to eat/drink [] Unable to sleep [] Unable to be with family [] Patient intubated [] Other: Summary Time spent with patient
[2020-03-26] MEDS: ipratropium-albuterol 3 mL Neb INHALATION (20:17)
[2020-03-26] MEDS: budesonide 0.5 mg/2 mL Neb INHALATION (20:17)
[2020-03-27] MEDS: enoxaparin 40 mg/0.4 mL Syringe SUBCUT (03:35)
[2020-03-27 03:57] VITALS: BP 142/76; PULSE 90; RESP 18; TEMP 36.8; O2SAT 94
--- NOTE | 2020-03-27 06:26 | PM.DCS ---
Discharge Providers Date of Admission: 03/25/20 15:35 Date of Discharge: March 27, 2020 Attending Provider at Admission: Ander Andrews DO Attending Provider at Discharge: Ander Andrews DO Primary Care Provider: Cheo Pastrana Jr, MD Diagnoses at Discharge Discharge Diagnosis (1) Fracture of left tibial plateau: Status: Acute Qualifiers: Encounter type: initial encounter Fracture type: closed Qualified Code(s): S82.142A - Displaced bicondylar fracture of left tibia, initial encounter for closed fracture (2) Osteoporosis: Status: Chronic Permanent problem details: on calcitonin and calcium + vitamin D Qualifiers: Osteoporosis type: unspecified Presence of current pathological fracture: with current pathological fracture Encounter type: initial encounter Qualified Code(s): M80.00XA - Age-related osteoporosis with current pathological fracture, unspecified site, initial encounter for fracture (3) Chronic cough: Status: Chronic (4) History of surgery on extremity: Status: Acute Permanent problem details: Uniplanar external fixation of the left lower extremity for tibial plateau fracture on 03/14/2020 Hospital Course Hospital Course Patient was admitted on March 25 she had open reduction internal fixation of her left tibial plateau along with removal of an external fixator. Her hospital course was uneventful. She was up with physical therapy yesterday and today she will be discharged home. Physical Exam Narrative: EXAM NARRATIVE: Dressing clean dry and intact by 5 strength. Discharge Data Data Completed and Pending: Completed Studies During Hospitalization Category Date Time Status XR chest 1V tabitha ble [id number] Routine Exams 03/25/20 15:22 Completed XR knee LT 1-2V 7 3560 Routine Exams 03/25/20 Completed Pending at discharge Category Date Time Status C-arm Fluoroscopy [id number] Routine Exams 03/25/20 08:18 Taken Vitals: Last Vital Signs Temp 98.2 F 03/27/20 03:57 Pulse 90 03/27/20 03:57 Resp 18 03/27/20 03:57 BP 142/76 03/27/20 03:57 Pulse Ox 94 03/27/20 03:57 Discharge Plan Discharge Patient Disposition: Home Condition: Stable Prescriptions: New cyclobenzaprine 10 mg Tablet 5 mg PO TID PRN (Reason: Muscle Spasms) Qty: 30 RF: 0 Ultram 50 mg tablet 50 mg PO Q6H 7 Days Qty: 28 RF: 0 Continued multivitamin Tablet 1 tab PO DAILY RF: 0 aspirin 81 mg Tablet,Delayed Release (Dr/Ec) 81 mg PO DAILY RF: 0 Hold Instructions: Resume on 03/29/20. calcitonin (salmon) 200 unit/actuation spray,non-aerosol See Rx Instructions .ROUTE .COMPLEX RF: 0 pantoprazole 40 mg tablet,delayed release (DR/EC) 40 mg PO DAILY RF: 0 codeine-guaifenesin [Virtussin AC] 10-100 mg/5 mL liquid 5 ml PO Q4H PRN (Reason: Cough) RF: 0 Calcium + D 1 tab PO DAILY RF: 0 [place] Tab 1 tab PO DAILY RF: 0 Cinnamon 1 cap PO DAILY RF: 0 Vitamin C 1 tab PO DAILY RF: 0 Vitamin D3 1 cap PO DAILY RF: 0 beta carotene 1 cap PO DAILY RF: 0 cranberry 1 tab PO DAILY RF: 0 lutein 1 cap PO DAILY RF: 0 lysine 1 cap PO DAILY RF: 0 vitamin E 1 cap PO DAILY RF: 0 zinc 1 cap PO DAILY RF: 0 tramadol 50 mg tablet 50 mg PO Q6H PRN (Reason: moderate to severe pain) Qty: 30 RF: 0 ondansetron HCl [Zofran] 4 mg tablet 4 mg PO Q8H PRN (Reason: nausea and vomiting) Qty: 20 RF: 0 enoxaparin 40 mg/0.4 mL syringe 40 mg SUBCUT DAILY Qty: 30 RF: 0 Discharge Orders: Discharge Order (Routine); Ordered 03/27/20 Ordered By: Ander Andrews Other Ambulatory Orders: DME: Walker (Order) Location: None Selected Ordered By: Ander Andrews Discharge Diet: Advance as tolerated and Usual diet Discharge Activity: Limit activity as instructed Activity Restrictions/Additional Instructions: You are being discharged from the hospital today during which time you have been under the care of Dr. Andrews. You had a tibial plateau fracture. You were treated for this injury with ORIF left tibial plateau. You may resume you normal diet (including any special diets as directed by your primary doctor) as well as your home medications. You should follow up with you primary doctor if you have any questions regarding medication you took prior to your stay in the hospital. You may take your pain medication as prescribed. After the first few days, take your pain medication as needed. Do not drive or drink alcohol while taking your pain medication. Your injury may increase your risk of developing a blood clot,or DVT, in your arm or leg. This could potentially dislodge and travel to your lungs and become a life threatening condition called apulmonary embolus,or PE. You have been prescribed Lovenox to be taken to prevent this. Frequent movement of the legs will also help prevent this from occurring. If you develop any new or worsening cough, chestpain, bloody sputum or shortness of breath, call 911 or go to the EmergencyRoom. Always keep your surgical incision/dressing clean and dry. If you experience increasing pain at your incision site, redness, swelling, increasing discharge, foul odors, or fevers (greater than 100.4), night sweats or chills you should call the office at the above number. If you feel this is an emergency you should be evaluated in the Emergency Department of a nearby hospital. Orthopedic Patient Instructions Summary: Weight Bearing: Nonweightbearing left lower extremity Activity: As tolerated. Diet: Regular. Splint Care: Keep splint clean and dry. Cover with a plastic bag for bathing. Wound Care: Keep dressing clean and dry. Anticoagulation: Lovenox Pain Medication: Take only as needed. Ice, rest and elevation will be of great benefit. Please plan to follow-up [facility] Dr Andrews in 2 weeks. You will need to call the clinic [phone] to schedule this visit. Thank you far allowing me to participate in your care. Do not hesitate to call the office with any questions or concerns. Discharge Attestations Time Spent in Discharge Care*: less than 30 min Status at Discharge: Cognitive status at discharge: cognitively intact, Behavioral status at discharge: cooperative, Quality Metrics Clinical Quality Measures During this hospital stay, did patient experience: None Coding Level of Care Code Acute Steward/Stewardess Smoke Room for [facility] Fwd Diagnoses Fracture of left tibial plateau S82.142A Encounter type: initial encounter Fracture type: closed Osteoporosis M80.00XA Osteoporosis type: unspecified Presence of current pathological fracture: with current pathological fracture Encounter type: initial encounter Chronic cough R05 History of surgery on extremity Z98.890
[2020-03-27 07:09] VITALS: BP 158/78; PULSE 75; RESP 20; TEMP 36.7; O2SAT 95
--- NOTE | 2020-03-27 08:07 | PM.PN ---
Subjective Subjective: Interval history: No acute overnight events, had 700 mL urine output, hemodynamically stable, afebrile, on RA. POD # 2 s/p removal of external fixator and ORIF of L tibial plateau fracture. Discharge home today. In good spirits, no complaints of pain currently, required 25 mg dose of Tramadol overnight for pain control. Medications: Reviewed: Yes Medication Review Details: Active Medications Generic Name Dose Route Start Last Admin Trade Name Freq PRN Reason Stop Dose Admin Hydrocodone Bitart /Acetaminophen 1 - 2 tab 03/25/20 14:45 03/25/20 22:15 Hydrocodone-Acet aminophen 5-325 Mg Tablet PO 2 tab Q4H PRN Administration BREAKTHROUGH PAIN Albuterol/Ipratrop ium 3 ml 03/26/20 12:42 03/26/20 20:17 Ipratropium-Albu terol 3 Ml Neb INHALATION 3 ml Q6H PRN Administration SHORTNESS OF KEYANNA TH Aspirin 81 mg 03/26/20 09:00 03/26/20 07:56 Aspirin 81 Mg Ec Tablet PO 81 mg DAILY ELVIS Administration Benzonatate 100 mg 03/25/20 15:22 03/26/20 07:53 Benzonatate 100 Mg Capsule PO 100 mg TID PRN Administration COUGH Budesonide 0.5 mg 03/26/20 20:00 03/26/20 20:17 Budesonide 0.5 M g/2 Ml Neb INHALATION 0.5 mg BID.RESPIRATORY S CH Administration Cyclobenzaprine HC l 5 mg 03/25/20 16:44 03/25/20 16:50 Cyclobenzaprine 10 Mg Tablet PO 5 mg TID PRN Administration MUSCLE SPASMS Enoxaparin Sodium 40 mg 03/26/20 02:49 03/27/20 03:35 Enoxaparin 40 Mg /0.4 Ml Syringe SUBCUT 40 mg Q24H ELVIS Administration Guaifenesin/Codein e Phosphate 5 ml 03/25/20 14:51 Guaifenesin-Code ine Udc 10 Ml PO Q4H PRN Cough Ketorolac Trometha mine 15 mg 03/25/20 14:45 03/26/20 08:07 Ketorolac 30 Mg/ Ml Inj IVP 15 mg Q6H PRN Administration Pain - See dose i nstructions Ondansetron HCl 4 mg 03/25/20 14:51 03/25/20 16:14 Ondansetron 4 Mg Tablet PO 4 mg Q8H PRN Administration nausea and vomiti ng Pantoprazole Sodiu m 40 mg 03/26/20 09:00 03/26/20 07:[address] 40 Mg Tablet PO 40 mg DAILY ELVIS Administration Tramadol HCl 25 mg 03/25/20 15:23 03/26/20 21:18 Tramadol 50 Mg T ablet PO 25 mg Q6H PRN Administration moderate to sever e pain Sulfa (Sulfonamide Antibiotics) Allergy (Verified 03/13/20 14:07) ALGY-Hives Vitals/I&O/Wt Last Vital Signs Temp 98.0 F 03/27/20 07:09 Pulse 75 03/27/20 07:09 Resp 20 H 03/27/20 07:09 BP 158/78 03/27/20 07:09 Pulse Ox 95 03/27/20 07:09 03/26/20 03/27/20 03/27/20 22:59 06:59 14:59 Intake Total 240 / 780 Output Total 650 / 850 700 / 1550 Balance -410 / -70 -700 / -770 Physical Exam Const: COMMON NORMALS: no acute distress, patient oriented x3 and alert GENERAL APPEARANCE: cooperative and comfortable NUTRITIONAL APPEARANCE: thin ORIENTATION/CONSCIOUSNESS: Yes awake OTHER: -looks younger than stated age HENMT: COMMON NORMALS: normocephalic, atraumatic, hearing grossly normal bilaterally and moist oral mucous membranes HEAD & SCALP: normocephalic and atraumatic Eye: COMMON NORMALS: Equal, round and reactive pupils present, EOMs intact bilaterally and conjunctivae normal CONJUNCTIVA: Yes conjunctivae normal PUPIL: Yes Equal, round and reactive pupils present Neck/C-Spine: COMMON NORMALS: full ROM GENERAL: Yes normal visual inspection and Yes trachea midline Resp: COMMON NORMALS: normal respiratory effort, No retractions, No use of accessory muscles and clear to auscultation bilaterally EFFORT & INSPECTION: Yes able to speak in complete sentences, Yes symmetric chest movement and No tachypneic AUSCULTATION: clear to auscultation bilaterally OTHER: -on RA Cardio: COMMON NORMALS: regular rate, regular rhythm, S1 normal heart sound present, S2 normal heart sound present and No murmurs present (Cardio) RATE: regular rate RHYTHM: regular rhythm HEART SOUNDS: S1 normal heart sound present and S2 normal heart sound present GI: COMMON NORMALS: Normal to inspection, nondistended, normoactive bowel sounds present, Soft to palpation and non-tender PALPATION: Yes Soft to palpation Extremity: NARRATIVE EXTREMITY EXAM: -bulky dressing on LLE; gross sensation intact Neuro: COMMON NORMALS: patient oriented x3, moves all extremities, no focal motor deficits and no sensory deficits noted SENSORIUM/ORIENTATION: Yes alert Psych: COMMON NORMALS: mental status grossly normal, Normal thought process present, cooperative, normal affect and speech normal SPEECH: Yes normal speech THOUGHT PROCESS: Normal thought process present Skin: COMMON NORMALS: no rashes or lesions noted, no jaundice, no petechiae and no mottling GENERAL SKIN EXAM: no rashes or lesions noted A&P Assessment and plan (1) Fracture of left tibial plateau: -s/p mechanical fall on 03/13 -s/p uniplanar external fixator on 03/14 -definitive surgery postponed due to degree of edema. Has now had L tibial plateau ORIF and removal of external fixator by Dr. Andrews; POD # 2 -spinal anesthesia, noted to be coughing which per patient is a chronic cough. CXR with noted mild RLL pneumonitis, bilateral bronchiectasis, in background of fibrosis and emphysema. Duonebs PRN, pulmicort, IS -antitussives PRN -pain control as needed -PT/OT evaluations appreciated -complete riaz-op antibiotics -EBL-25 mL; received 500 mL of fluid -fall precautions -Lovenox for DVT ppx -VSS; continue to monitor Status: Acute Qualifiers: Encounter type: initial encounter Fracture type: closed Qualified Code(s): S82.142A - Displaced bicondylar fracture of left tibia, initial encounter for closed fracture (2) Osteoporosis: Status: Chronic Qualifiers: Encounter type: initial encounter Osteoporosis type: unspecified Presence of current pathological fracture: with current pathological fracture Qualified Code(s): M80.00XA - Age-related osteoporosis with current pathological fracture, unspecified site, initial encounter for fracture (3) Chronic cough: -previously COVID-19 testing done, negative -recently started on PPI Status: Chronic (4) History of surgery on extremity: Status: Acute Additional A&P Information -Advanced age -advance to regular diet -GI ppx with PPI -DVT ppx with lovenox -Dispo: home with HH (resume services with [place]) -Code status: FULL code Attestations Medical Necessity Statement*: Discharge home today. Time Spent in Patient Care: less than 15 minutes (>than 50% of time spent in counselling and/or direct pt care on unit). Coding Level of Care Code Acute Machine Clothing Man for [facility] Fwd Exam Comprehensive Diagnoses Fracture of left tibial plateau S82.142A Encounter type: initial encounter Fracture type: closed Osteoporosis M80.00XA Encounter type: initial encounter Osteoporosis type: unspecified Presence of current pathological fracture: with current pathological fracture Chronic cough R05 History of surgery on extremity Z98.890
[2020-03-27] MEDS: pantoprazole DR 40 mg Tablet PO (08:28)
[2020-03-27] MEDS: aspirin 81 mg EC Tablet PO (08:28)
[2020-03-27] MEDS: TRAMadol 50 mg Tablet 25 MG PO (08:28)
[2020-03-27 08:39] VITALS: PULSE 75; RESP 16; O2SAT 95
--- NOTE | 2020-03-27 09:02 | PC.NURSE ---
Discharge instructions completed, verbalized understanding and denies further questions or concerns.
[2020-03-27 09:24] VITALS: BP 158/78; PULSE 75; RESP 20; TEMP 36.7; O2SAT 95
== END 2020-03-27 09:48 | disposition home or self-care (01) | DRG 494 ==
LOC: MEDSURG 03-26 07:50
PROVIDERS: Admitting Provider Orthopaedic Surgery; PCP Family Medicine; Visit Provider Orthopaedic Surgery
PROC: 0QSH04Z Reposition Left Tibia with Internal Fixation Device, Open Approach (ICD-10-PCS; principal; 2020-03-25 09:40)
PROC: 0QSH04Z Reposition Left Tibia with Internal Fixation Device, Open Approach (ICD-10-PCS; 2020-03-25 09:40)
DX: M80.862A Other osteoporosis with current pathological fracture, left lower leg, initial encounter for fracture (principal); W10.9XXA Fall (on) (from) unspecified stairs and steps, initial encounter; Z96.649 Presence of unspecified artificial hip joint; R05 Cough; Z79.82 Long term (current) use of aspirin; Z79.891 Long term (current) use of opiate analgesic
CPT/HCPCS: 12345; 71045; 73560; 76000; 94640; 96372; 96375; 97110; 97161; 97165; 97530; C1713; J0690; J1650; J1885; J2250; J2270; J2274; J2704; J7030; J7626; Q0162

== ENCOUNTER → 2020-05-06 08:14 | Outpatient (BNVA) | payer MEDICARE, OTHER, SELFPAY | PROVIDERS: PCP Family Medicine; Visit Provider Orthopaedic Surgery | DX: Z47.89 Encounter for other orthopedic aftercare (principal); S82.142D Displaced bicondylar fracture of left tibia, subsequent encounter for closed fracture with routine healing; S82.832D Other fracture of upper and lower end of left fibula, subsequent encounter for closed fracture with routine healing; X58.XXXD Exposure to other specified factors, subsequent encounter | CPT/HCPCS: 73562 ==

== ENCOUNTER → 2020-06-03 10:29 | Outpatient (BNVA) | payer MEDICARE, OTHER, SELFPAY | PROVIDERS: PCP Family Medicine; Visit Provider Orthopaedic Surgery | DX: Z47.89 Encounter for other orthopedic aftercare (principal) | CPT/HCPCS: 73562 ==

== ENCOUNTER → 2020-07-15 09:21 | Outpatient (BNVA) | payer MEDICARE, OTHER, SELFPAY | PROVIDERS: PCP Family Medicine; Visit Provider Orthopaedic Surgery | DX: Z48.89 Encounter for other specified surgical aftercare (principal); M25.572 Pain in left ankle and joints of left foot; S82.402D Unspecified fracture of shaft of left fibula, subsequent encounter for closed fracture with routine healing; X58.XXXD Exposure to other specified factors, subsequent encounter | CPT/HCPCS: 73562; 73610 ==

== ENCOUNTER 2020-09-08 14:34 | Outpatient (CLI) | payer MEDICARE, OTHER, SELFPAY ==
--- NOTE | 2020-09-08 14:43 | XR_ITS ---
NOTE: Report was unsigned for reason: Order was edited. Original Signature date and time was: 09/08/20 @ 1506 WS: [id number] Bone mineral density performed on a Cued, 09/08/2020. Clinical data: ASYMPTOMATIC MENOPAUSAL STATE Findings: The first 4 lumbar vertebral bodies demonstrated the bone mineral density of 0.972 g/cm2 for a young adult T score of -1.7. Measurement of the left hip reveals a bone mineral density of 0.593 g/sq cm with a young adult T score of -3.3. MTDD XR/XR DEXA axial skeleton* [id number] Impression: 1. Osteopenia of the lumbar spine. 2. Osteoporosis of the left hip.
== END 2020-09-08 14:35 | disposition home or self-care (01) ==
LOC: RADWPI 14:41
PROVIDERS: PCP Family Medicine; Visit Provider Family Medicine
DX: Z78.0 Asymptomatic menopausal state (principal); M85.88 Other specified disorders of bone density and structure, other site; M81.0 Age-related osteoporosis without current pathological fracture
CPT/HCPCS: 77080; 77081

== ENCOUNTER 2020-09-15 07:44 | Outpatient (CLI) | payer MEDICARE, OTHER, SELFPAY ==
--- NOTE | 2020-09-15 07:49 | MM_ITS ---
WS: [id number] BILATERAL DIGITAL SCREENING MAMMOGRAPHY WITH CAD CLINICAL INFORMATION: SCREENING HISTORY: Screening mammogram. No current complaints. COMPARISON: September 15, 2019 TECHNIQUE: Bilateral CC and MLO views. FINDINGS: The breasts are composed of heterogeneous fibroglandular density tissue, which can limit the detectio n of small underlying mass lesions. Vascular calcification. No suspicious mass, asymmetry, calcificat ions, or architectural distortion. No evidence of malignancy. MM/[place] [id number] IMPRESSION: BI-RADS: 2-Benign FOLLOW UP: 1 Year Follow-up Recommend return to annual screening mammography.
== END 2020-09-15 07:45 | disposition home or self-care (01) ==
LOC: RADSHAW 07:46
PROVIDERS: PCP Family Medicine; Visit Provider Family Medicine
DX: Z12.31 Encounter for screening mammogram for malignant neoplasm of breast (principal)
CPT/HCPCS: 77067

== ENCOUNTER 2021-06-16 16:36 | Inpatient (IN) | payer MEDICARE, OTHER, SELFPAY ==
[2021-06-16] VITALS (7 sets, daily range): BP systolic 126–155; BP diastolic 64–81; PULSE 71–94; RESP 16–22; TEMP 36.3–36.7; O2SAT 93–98; BMI 18.8
--- NOTE | 2021-06-16 17:20 | CTR_ITS ---
PROCEDURE INFORMATION: Exam: CT Head Without Contrast Exam date and time: 06/16/2021 5:20 PM Age: 80 years old Clinical indication: Injury or trauma; Blunt trauma (contusions or hematomas); Without loss of consciousness; Patient HX: Fall on ice; Additional info: Fall, hit head TECHNIQUE: Imaging protocol: Computed tomography of the head without contrast. Axial, coronal and sagittal reformatted images were created and reviewed. Radiation optimization: All CT scans at this facility use at least one of these dose optimization techniques: automated exposure control; mA and/or kV adjustment per patient size (includes targeted exams where dose is matched to clinical indication); or iterative reconstruction. COMPARISON: No relevant prior studies available. RADIATION DOSE METRICS: Total DLP (mGy-cm): 677.4 FINDINGS: Brain: Patchy areas of hypoattenuation in the periventricular and subcortical white matter, consistent with chronic small vessel ischemic disease. No CT evidence of acute intracranial hemorrhage or acute territorial infarction. No significant mass effect or midline shift. Basal cisterns patent. Cerebral ventricles: Prominence of the cortical sulci, cisterns and ventricular system, consistent with cerebral and cerebellar volume loss. Paranasal sinuses: Minimal ethmoid mucosal thickening. No fluid levels. Mastoid air cells: Grossly unremarkable. Vasculature: Calcific atherosclerotic disease in the cavernous internal carotid arteries, as well as the vertebro-basilar system. Bones/joints: No acute osseous abnormality. Soft tissues: Grossly unremarkable. CT/CT head wo con* [id number]PRESS[address]: 1. No CT evidence of acute intracranial pathology. 2. Additional findings, as above.
--- NOTE | 2021-06-16 17:20 | XRR_ITS ---
PROCEDURE INFORMATION: Exam: XR Left Femur Exam date and time: 06/16/2021 5:20 PM Age: 80 years old Clinical indication: Injury or trauma; Fall; Blunt trauma; Thigh or upper leg; Left TECHNIQUE: Imaging protocol: XR Left femur. Views: 2 views. COMPARISON: No relevant prior studies available. FINDINGS: Bones/joints: Metal plate and screws in the proximal left tibia, transversing an old tibial plateau fracture. Comminuted displaced left intertrochanteric femur fracture. Linear lucencies in the diaphysis of the left femur most likely represent old screw tracks. Soft tissues: Unremarkable. Vasculature: Arterial calcifications. XR/XR femur LT min 2V* [id number] IMPRESSION: 1. Comminuted displaced left intertrochanteric femur fracture.
--- NOTE | 2021-06-16 17:20 | XRR_ITS ---
PROCEDURE INFORMATION: Exam: XR Left Hip Exam date and time: 06/16/2021 5:20 PM Age: 80 years old Clinical indication: Injury or trauma; Fall; Blunt trauma (contusions or hematomas); Left; Hip TECHNIQUE: Imaging protocol: XR Left hip. Views: 2 or 3 views hip with pelvis when performed. COMPARISON: No relevant prior studies available. FINDINGS: Bones/joints: Comminuted displaced left intertrochanteric femur fracture. The left hip joint appears intact. Possible old screw tract in the mid left femoral diaphysis. Soft tissues: Unremarkable. Vasculature: Arterial calcifications. XR/XR hip LT 2-3V wo/w pel* [id number] IMPRESSION: Comminuted displaced left intertrochanteric femur fracture.
--- NOTE | 2021-06-16 17:20 | CTR_ITS ---
PROCEDURE INFORMATION: Exam: CT Cervical Spine Without Contrast Exam date and time: 06/16/2021 5:20 PM Age: 80 years old Clinical indication: Injury or trauma; Blunt trauma; Patient HX: Fall on ice TECHNIQUE: Imaging protocol: Computed tomography images of the cervical spine without contrast. Axial, coronal and sagittal reformatted images were created and reviewed. Radiation optimization: All CT scans at this facility use at least one of these dose optimization techniques: automated exposure control; mA and/or kV adjustment per patient size (includes targeted exams where dose is matched to clinical indication); or iterative reconstruction. COMPARISON: CT head wo con* [id number] 06/16/2021 5:45 PM RADIATION DOSE METRICS: Total DLP (mGy-cm): 255.14 FINDINGS: Bones/joints: Osteopenia. Mild reversal of the normal cervical lordosis. No CT evidence of acute fracture, dislocation or subluxation. Mild anterolisthesis of C3 on C4 and C4 on C5. Alignment otherwise anatomic. Mild dextroscoliosis. Vertebral body heights maintained. Discs/Spinal canal/Neural foramina: Mild multilevel degenerative changes, characterized by disc space narrowing, osteophytosis and uncovertebral and facet joint hypertrophy. Mild multilevel spinal canal and neural foraminal narrowing. Lungs: Grossly unremarkable. Soft tissues: Grossly unremarkable. CT/CT cervical spin wo con* [id number] IMPRESSION: 1. No CT evidence of acute cervical spine traumatic injury. 2. Additional findings, as above.
--- NOTE | 2021-06-16 17:52 | XRR_ITS ---
PROCEDURE INFORMATION: Exam: XR Chest Exam date and time: 06/16/2021 5:52 PM Age: 80 years old Clinical indication: Screening exam; Pre-operative exam; Other: Hip fracture TECHNIQUE: Imaging protocol: XR of the chest. Views: 1 view. COMPARISON: CR XR chest 1V portable [id number] 03/25/2020 3:48 PM FINDINGS: Lungs: Unremarkable. No consolidation. Pleural spaces: Unremarkable. No pleural effusion. No pneumothorax. Heart/Mediastinum: Unremarkable. No cardiomegaly. Bones/joints: Old left rib fracture. No acute fracture identified. Degenerative lumbar spine with curvature. XR/XR chest 1V portable [id number] IMPRESSION: No acute finding.
--- NOTE | 2021-06-16 17:54 | ECG_ITS ---
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 Measurements Intervals [place] Rate: 87 P: 63 W[place]: 143 QRS: 41 QRSD: 90 T: 59 QT: 361 QTc: 435 Interpretive Statements SINUS RHYTHM POSSIBLE LEFT ATRIAL ENLARGEMENT [-0.1mV P-WAVE IN V1/V2] Compared to ECG 03/13/2020 17:57:32 No significant changes Electronically Signed On 06-17-2021 6:59:02 [employer]CH[employer] by Pete Knowles M.D. [id number]
[2021-06-16] MEDS: morphine 4 mg/mL SDV 1 mL IVP (18:52)
[2021-06-16] MEDS: ondansetron 2 mg/ML SDV 2 mL 4 MG IVP ×2 (18:52→20:57)
[2021-06-16 18:57] LABS: Basophils % 0.3 %; Eosinophils # 0.1 10^3/uL (0.0-0.8); Eosinophils % 0.6 %; Hematocrit 43.6 % (37.0-47.0); Lymphocytes # 0.9 10^3/uL (0.8-4.8); Lymphocytes % 7.2 %; Mean Corpuscular HGB Conc 32.1 g/dL (30.0-36.0); Mean Corpuscular Hemoglobin 29.6 pg (28.0-34.0); Mean Corpuscular Volume 92.2 fl (81-99); Mean Platelet Volume 10.9 fL (7.4-10.4); Monocytes # 0.5 10^3/uL (0.2-0.9); Monocytes % 4.4 %; Nucleated Red Blood Cells % 0 %; Platelet Count 220 10^3/cmm (130-400); Red Blood Count 4.73 10^6/uL (4.1-5.3); Red Cell Distribution Width 13.1 % (12.1-15.1); White Blood Count 12.3 10^3/uL (4.0-10.0)
[2021-06-16] MEDS: lactated ringers 1,000 ML 75 ML IV (18:58)
[2021-06-16 19:16] LABS: Alanine Aminotransferase 12 U/L (0-33); Albumin Level 4.4 g/dL (3.5-5.2); Alkaline Phosphatase 76 IU/L (35-105); Aspartate Amino Transferase 20 U/L (0-32); Blood Urea Nitrogen 11 mg/dL (8-23); Calcium 9.8 mg/dL (8.5-10.5); Carbon Dioxide 25 mmol/L (22-29); Chloride 101 mmol/L (98-107); Globulin 2.3 g/dL (1.3-4.6); Glucose 118 mg/dL (65-115); Osmolality Calculated 284 mOsm/kg (285-295); Sodium 137 mmol/L (136-145); Total Bilirubin 0.2 mg/dL (0.15-1.2); Total Protein 6.7 g/dL (6.6-8.7)
--- NOTE | 2021-06-16 19:40 | ED_ITS ---
HPI - Fall General: Chief Complaint: Fall Stated Complaint: Fell on ice Time Seen by Provider: 06/16/21 17:19 History of Present Illness: Patient fell on ice today striking back of head and striking her left hip. Patient states that she did not lose consciousness. Complains about pain left hip. Cannot bear weight. Associated symptoms-after fall: Denies abdominal pain, chest pain or headache(s) Review of Systems Narrative: Patient fell today on ice landing on right hip and striking back head. Patient had no loss of consciousness. Const: Denies: fever(s), chills or body aches Eyes: Denies: eye discomfort ENMT: Denies: throat pain Card: Denies: chest pain Resp: Denies: dyspnea GI: Denies: abdominal pain, nausea or vomiting Musc: Reports: joint pain (Left hip., Cannot bear weight.) Skin/Breast: Denies: rash Neuro: Denies: headache(s) Psych: Denies: depression or suicidal ideation PFS ED PFSH: Medical History Chronic cough Osteoporosis on calcitonin and calcium + vitamin D Surgical History History of hip replacement History of surgery on extremity (03/14/20) Uniplanar external fixation of the left lower extremity for tibial plateau fracture on 03/14/2020 Family History Mother CHF (congestive heart failure) Social History Alcohol intake: never Lives independently: Yes Household members: spouse Current occupational status: retired Physical Exam Const: COMMON NORMALS: no acute distress, patient oriented x3 and alert HENMT: COMMON NORMALS: normocephalic and external ears normal HEAD & SCALP: normocephalic EXTERNAL EAR: Yes external ears normal Eye: COMMON NORMALS: EOMs intact bilaterally Neck/C-Spine: COMMON NORMALS: no JVD Resp: COMMON NORMALS: normal respiratory effort and No use of accessory muscles Cardio: COMMON NORMALS: no JVD GI: INSPECTION: Yes normal to inspection Extremity: LEFT LOWER EXTREMITY: Yes hip joint (Tenderness left hip decreased range of motion due to tenderness. Mild swel) Left hip: Yes other (Neurovascular status intact.) Neuro: COMMON NORMALS: patient oriented x3 SENSORIUM/ORIENTATION: Yes alert Psych: COMMON NORMALS: mental status grossly normal Skin: COMMON NORMALS: no rashes or lesions noted GENERAL SKIN EXAM: no rashes or lesions noted Course Vital Signs: Vital signs: Vital Signs Temperature 97.4 F L 06/16/21 16:43 Pulse Rate 73 06/16/21 16:43 Respiratory Rate 16 06/16/21 18:52 Blood Pressure 155/74 06/16/21 16:43 Pulse Oximetry 98 06/16/21 16:43 MDM - Fall Medical Decision Making I was able to text Dr. Glynn. Dr. Glynn states have patient admitted to hospitalist for weekend and can see Dr. Andrews on Saturday which patient is req uesting Dr. Andrews to do the surgery. I spoke to Dr. Aragon about case, need for admit orders. Lab Data : 06/16/21 18:35 06/16/21 18:35 Radiology Impressions Cervical Spine CT 06/16/21 17:20 IMPRESSION: 1. No CT evidence of acute cervical spine traumatic injury. 2. Additional findings, as above. Femur X-Ray 06/16/21 17:20 IMPRESSION: 1. Comminuted displaced left intertrochanteric femur fracture. Head CT 06/16/21 17:20 IMPRESSION: 1. No CT evidence of acute intracranial pathology. 2. Additional findings, as above. Hip/Pelvis X-Ray 06/16/21 17:20 IMPRESSION: Comminuted displaced left intertrochanteric femur fracture. Chest X-Ray 06/16/21 17:52 IMPRESSION: No acute finding. Laboratory Results WBC 12.3 10^3/uL (4.0-10.0) H 06/16/21 18:35 RBC 4.73 10^6/uL (4.1-5.3) 06/16/21 18:35 Hgb 14.0 g/dL (11.5-15.3) 06/16/21 18:35 Hct 43.6 % (37.0-47.0) 06/16/21 18:35 MCV 92.2 fl (81-99) 06/16/21 18:35 MCH 29.6 pg (28.0-34.0) 06/16/21 18:35 MCHC 32.1 g/dL (30.0-36.0) 06/16/21 18:35 RDW 13.1 % (12.1-15.1) 06/16/21 18:35 Plt Count 220 10^3/cmm (130-400) 06/16/21 18:35 MPV 10.9 fL (7.4-10.4) H 06/16/21 18:35 Neut % (Auto) 87.0 % 06/16/21 18:35 Lymph % (Auto) 7.2 % 06/16/21 18:35 Marshall % (Auto) 4.4 % 06/16/21 18:35 Eos % (Auto) 0.6 % 06/16/21 18:35 Baso % (Auto) 0.3 % 06/16/21 18:35 Neut # (Auto) 10.70 10^3/uL (1.8-7.7) H 06/16/21 18:35 Lymph # (Auto) 0.9 10^3/uL (0.8-4.8) 06/16/21 18:35 Marshall # (Auto) 0.5 10^3/uL (0.2-0.9) 06/16/21 18:35 Eos # (Auto) 0.1 10^3/uL (0.0-0.8) 06/16/21 18:35 Baso # (Auto) 0.0 10^3/uL (0.0-0.1) 06/16/21 18:35 Nucleated RBC % (auto) 0 % 06/16/21 18:35 Nucleated RBCs # 0.0 /100WBC 06/16/21 18:35 Sodium 137 mmol/L (136-145) 06/16/21 18:35 Potassium 4.0 mmol/L (3.5-5.1) 06/16/21 18:35 Chloride 101 mmol/L (98-107) 06/16/21 18:35 Carbon Dioxide 25 mmol/L (22-29) 06/16/21 18:35 Anion Gap 15.0 (5-19) 06/16/21 18:35 BUN 11 mg/dL (8-23) 06/16/21 18:35 Creatinine 0.5 mg/dL (0.5-0.9) 06/16/21 18:35 GFR Calculation Not Reportable 06/16/21 18:35 Glucose 118 mg/dL (65-115) H 06/16/21 18:35 Calculated Osmolality 284 mOsm/kg (285-295) L 06/16/21 18:35 Calcium 9.8 mg/dL (8.5-10.5) 06/16/21 18:35 Total Bilirubin 0.2 mg/dL (0.15-1.2) 06/16/21 18:35 AST 20 U/L (0-32) 06/16/21 18:35 ALT 12 U/L (0-33) 06/16/21 18:35 Alkaline Phosphatase 76 IU/L (35-105) 06/16/21 18:35 Total Protein 6.7 g/dL (6.6-8.7) 06/16/21 18:35 Albumin 4.4 g/dL (3.5-5.2) 06/16/21 18: Globulin 2.3 g/dL (1.3-4.6) 06/16/21 18:35 Discharge Plan Discharge Condition: Stable Prescriptions: No Action azithromycin 600 mg tablet 600 mg PO DAILY 7 Days Qty: 7 0RF Rx Instructions: 1 tab by mouth once a day for 7 days multivitamin Tablet 1 tab PO DAILY 0RF aspirin 81 mg Tablet,Delayed Release (Dr/Ec) 81 mg PO DAILY 0RF Hold Instructions: Resume on 03/29/20. calcitonin (salmon) 200 unit/actuation spray,non-aerosol See Rx Instructions .ROUTE .COMPLEX 0RF Rx Instructions: spray once into alternating nares daily pantoprazole 40 mg tablet,delayed release (DR/EC) 40 mg PO DAILY 0RF codeine-guaifenesin [Virtussin AC] 10-100 mg/5 mL liquid 5 ml PO Q4H PRN (Reason: Cough) 0RF Calcium + D 1 tab PO DAILY 0RF Cayenne Tab 1 tab PO DAILY 0RF Cinnamon 1 cap PO DAILY 0RF Vitamin C 1 tab PO DAILY 0RF Vitamin D3 1 cap PO DAILY 0RF beta carotene 1 cap PO DAILY 0RF cranberry 1 tab PO DAILY 0RF lutein 1 cap PO DAILY 0RF lysine 1 cap PO DAILY 0RF vitamin E 1 cap PO DAILY 0RF zinc 1 cap PO DAILY 0RF tramadol 50 mg tablet 50 mg PO Q6H PRN (Reason: moderate to severe pain) Qty: 30 0RF ondansetron HCl [Zofran] 4 mg tablet 4 mg PO Q8H PRN (Reason: nausea and vomiting) Qty: 20 0RF cyclobenzaprine 10 mg Tablet 5 mg PO TID PRN (Reason: Muscle Spasms) Qty: 30 0RF enoxaparin 40 mg/0.4 mL syringe 40 mg SUBCUT DAILY Qty: 30 0RF Rx Instructions: hold day of surgery or as directed by Dr Andrews Referrals: Camille Greene MD [Primary Care Provider] - Coding Level of Care Code ED Financial Legal Assistant for Chg Fwd Exam Comprehensive
[2021-06-16 20:19] LABS: INR 0.97 (0.8-1.2)
--- NOTE | 2021-06-16 20:48 | P.HP_ITS ---
Providers/Chief Complaint Admitting Physician: Lashanda Mistry Primary Care Provider: Camille Greene MD Chief Complaint: Fell on ice History of Present Illness 80-year-old female with past medical history significant for gastroesophageal reflux disease on Protonix presented to the hospital after she sustained a fall.Patient stated she has slipped on ice. Denies any head trauma. No loss of conscious. Denies chest pain or shortness of breath. Laboratory workup arrival showed a WBC of 12.3, hemoglobin of 14.0, hematocrit 43.6 and a platelet count of 220.Sodium 137, potassium 4.0, chloride 101, bicarb 25, BUN 11 and creatinine of 0.5. Glucose 118. LFTs within normal limits. CT head and cervical spine did not show any evidence of acute fracture.Femur x- ray showed comminuted displaced left intertrochanteric femur fracture. Chest x- ray did not show any evidence of acute cardiopulmonary abnormality. Review of Systems Narrative: Comprehensive review of systems found to be negative other than pertinent findings noted in HPI Medications/Allergies Home Medications Medication Instructions Recorded Confirmed Last Taken Type Calcium + D 1 tab PO DAILY 03/13/20 07/15/20 03/24/20 History Cayenne Tab 1 tab PO DAILY 03/13/20 07/15/20 03/24/20 History Cinnamon 1 cap PO DAILY 03/13/20 07/15/20 03/24/20 History Vitamin C 1 tab PO DAILY 03/13/20 07/15/20 03/24/20 History Vitamin D3 1 cap PO DAILY 03/13/20 07/15/20 03/24/20 History aspirin 81 mg tablet,delayed 81 mg PO DAILY 03/13/20 07/15/20 03/18/20 History release beta carotene 1 cap PO DAILY 03/13/20 07/15/20 03/24/20 History calcitonin (salmon) 200 See Rx Instructions .ROUTE .COMPLEX 03/13/20 07/15/20 03/11/20 History unit/actuation nasal spray codeine 10 mg-guaifenesin 100 mg/5 5 ml PO Q4H PRN 03/13/20 07/15/20 03/12/20 History mL oral liquid (Virtussin AC) cranberry 1 tab PO DAILY 03/13/20 07/15/20 03/24/20 History lutein 1 cap PO DAILY 03/13/20 07/15/2003/24/20 History lysine 1 cap PO DAILY 03/13/20 07/15/20 03/24/20 History multivitamin 1 tab PO DAILY 03/13/20 07/15/20 03/24/20 History pantoprazole 40 mg tablet,delayed 40 mg PO DAILY 03/13/20 07/15/20 03/24/20 History release vitamin E 1 cap PO DAILY 03/13/20 07/15/20 03/24/20 History zinc 1 cap PO DAILY 03/13/20 07/15/20 03/24/20 History ondansetron HCl 4 mg tablet 4 mg PO Q8H PRN #20 tab 03/15/20 07/15/20 03/16/20 R x (Zofran) tramadol 50 mg tablet 50 mg PO Q6H PRN #30 tab 03/15/20 07/15/20 03/23/20 Rx cyclobenzaprine 10 mg tablet 5 mg PO TID PRN #30 tab 03/27/20 07/15/20 Unknown Rx enoxaparin 40 mg/0.4 mL 40 mg (0.4 mL) SUBCUT DAILY #30 03/27/20 07/15/20 03/23/20 Rx subcutaneous syringe dose azithromycin 600 mg tablet 600 mg PO DAILY 7 Days #7 tab 05/10/20 07/15/20 Unknown Rx Allergies Allergy/AdvReac Type Severity Reaction Status Date / Time Sulfa (Sulfonamide Allergy ALGY-Hives Verified 07/15/20 09:17 Antibiotics) PFSH Acute PFSH: Medical History Chronic cough Osteoporosis on calcitonin and calcium + vitamin D Surgical History History of hip replacement History of surgery on extremity (03/14/20) Uniplanar external fixation of the left lower extremity for tibial plateau fracture on 03/14/2020 Family History Mother CHF (congestive heart failure) Social History Alcohol intake: never Lives independently: Yes Household members: spouse Current occupational status: retired Vitals/I&O/Wt Last Vital Signs Temp 97.4 F L 06/16/21 16:43 Pulse 82 06/16/21 20:19 Resp 18 06/16/21 20:19 BP 135/81 06/16/21 20:19 Pulse Ox 95 06/16/21 20:19 Weight last 48 hrs Weight 49.895 kg Physical Exam Narrative: General-alert awake and oriented x3 HEENT-grossly unremarkable CVS-regular rate rhythm, no murmurs Chest-clear to auscultation bilaterally Abdomen-soft nontender nondistended Extremities-Decrease ROM of LE due to pain Data : 06/16/21 18:35 06/16/21 18:35 A&P Assessment and plan (1) Hip fracture: Status: Acute Plan Fall left hip fracture Patient requesting Dr. Andrews To see on saturday Cardiac diet Fall precautions Pain control Repeat labs in am PT/OT consult GERD Protonix 40 mg PO daily DVT ppx Heparin 5000 units q8hr SCDs Attestations Medical Necessity Statement*: Anticipate over 2 midnights stay in hospital for evaluation treatment of hip fracture Time Spent in Patient Care: Greater than 35 minutes (>than 50% of time spent in counselling and/or direct pt care on unit) . Coding Level of Care Code Acute [employer] Line Worker for Pili Reyez Diagnoses Hip fracture S72.009A
[2021-06-16] MEDS: morphine 4 mg/mL SDV 1 mL 2 MG IVP (20:57)
[2021-06-16 21:07] LABS: Blood Urine 2+ (Negative); Glucose Urine UA Norm (Normal); Ketones Urine 1+ (Negative); Protein Urine Neg (Negative); Urine Appearance Clear (CLEAR); Urine Color Yellow (Yellow); pH Urine 5 (5-7)
[2021-06-16 21:08] LABS: Add Urine Culture? No; Add Urine Microscopic? YES; Bilirubin Urine Neg (Negative); Leukocyte Esterase Urine Negative (Negative); Nitrate Urine Negative (Negative); Squamous Epithelial Cell Urine RARE /hpf (0-5); Urobilinogen Urine Neg (Negative); WBC Urine RARE /hpf (0-5)
[2021-06-16] MEDS: sodium chloride 0.9% 1,000 ML 75 ML IV (22:16)
[2021-06-16] MEDS: HYDROcodone-acetaminophen 5-325 mg Tablet 1 TAB PO (22:18)
[2021-06-17] VITALS (21 sets, daily range): BP systolic 106–163; BP diastolic 50–80; PULSE 79–103; RESP 15–27; TEMP 36.2–36.9; O2SAT 91–98; BMI 19.7
--- NOTE | 2021-06-17 | SCC_ITS ---
Procedure done: Open reduction internal fixation left hip with intramedullary device 70.2 seconds of fluoroscopic guidance, for a cumulative dose of 6.64 mGy, was provided to Dr. Glynn by the radiology department. C-arm images of the LEFT hip were saved for the patient's permanent record. [facility]
[2021-06-17] MEDS: morphine 4 mg/mL SDV 1 mL 2 MG IVP ×2 (00:51→16:00)
[2021-06-17] MEDS: HYDROcodone-acetaminophen 5-325 mg Tablet 1 TAB PO ×2 (02:29→08:27)
[2021-06-17 04:32] LABS: Basophils % 0.2 %; Hematocrit 36.8 % (37.0-47.0); Hemoglobin 12.1 g/dL (11.5-15.3); Lymphocytes # 0.7 10^3/uL (0.8-4.8); Lymphocytes % 6.3 %; Mean Corpuscular HGB Conc 32.9 g/dL (30.0-36.0); Mean Corpuscular Hemoglobin 30.3 pg (28.0-34.0); Mean Platelet Volume 10.5 fL (7.4-10.4); Monocytes # 0.6 10^3/uL (0.2-0.9); Monocytes % 5.4 %; Neutrophils # 9.67 10^3/uL (1.8-7.7); Neutrophils % 87.6 %; Nucleated Red Blood Cells % 0 %; Platelet Count 203 10^3/cmm (130-400)
[2021-06-17 05:04] LABS: Anion Gap 12.2 (5-19); Blood Urea Nitrogen 11 mg/dL (8-23); Calcium 8.6 mg/dL (8.5-10.5); Carbon Dioxide 25 mmol/L (22-29); Chloride 104 mmol/L (98-107); Glucose 137 mg/dL (65-115); Osmolality Calculated 286 mOsm/kg (285-295); Potassium 4.2 mmol/L (3.5-5.1); Sodium 137 mmol/L (136-145)
--- NOTE | 2021-06-17 09:56 | ANES.PREANE2 ---
Pre-Anesthetic Assessment Height/Weight: Height 1.63 m Weight 52.163 kg Temp Pulse Resp BP Pulse Ox 98.1 F 92 15 155/69 93 06/17/21 04:00 06/17/21 07:55 06/17/21 07:55 06/17/21 07:55 06/17/21 07:55 Preop Diagnosis: left tibial plateau fracture Operation Date: 06/17/21 10:55 Proposed Procedures p ORIF Tibia/Fibula(Left) - Gaurav Glynn MD Familial anesthetic complications: slow to wake up, drowsy after Was Beta Valdo taken within 24 hours: N/A Was Clonidine taken within 24 hours: N/A Last intake: Intake Last Liquid Date 06/17/21 Last Liquid Time 00:00 Last Solid Date 06/16/21 Last Solid Time 22:00 Social No alcohol and No tobacco Exam alert, oriented x 3, clear to auscultation bilaterally and regular rate & rhythm Airway Cervical ROM: within normal limits Mallampati: Class II Dentition: full Anesthetic Plan ASA status: 2 Anesthesia: General Risk of > 500 ml blood loss (7ml/kg in children): No Medications/Allergies Home Medications Medication Instructions Recorded Confirmed Last Taken Type Calcium + D 1 tab PO DAILY 03/13/20 07/15/20 03/24/20 History [place] Tab 1 tab PO DAILY 03/13/20 07/15/20 03/24/20 History Cinnamon 1 cap PO DAILY 03/13/20 07/15/20 03/24/20 History Vitamin C 1 tab PO DAILY 03/13/20 07/15/20 03/24/20 History Vitamin D3 1 cap PO DAILY 03/13/20 07/15/20 03/24/20 History aspirin 81 mg tablet,delayed 81 mg PO DAILY 03/13/20 07/15/20 03/18/20 History release beta carotene 1 cap PO DAILY 03/13/20 07/15/20 03/24/20 History calcitonin (salmon) 200 See Rx Instructions .ROUTE .COMPLEX 03/13/20 07/15/20 03/11/20 History unit/actuation nasal spray codeine 10 mg-guaifenesin 100 mg/5 5 ml PO Q4H PRN 03/13/20 07/15/20 03/12/20 History mL oral liquid (Virtussin AC) cranberry 1 tab PO DAILY 03/13/20 07/15/20 03/24/20 History lutein 1 cap PO DAILY 03/13/20 07/15/20 03/24/20 History lysine 1 cap PO DAILY 03/13/20 07/15/20 03/24/20 History multivitamin 1 tab PO DAILY 03/13/20 07/15/20 03/24/20 History pantoprazole 40 mg tablet,delayed 40 mg PO DAILY 03/13/20 07/15/20 03/24/20 History release vitamin E 1 cap PO DAILY 03/13/20 07/15/20 03/24/20 History zinc 1 cap PO DAILY 03/13/20 07/15/20 03/24/20 History ondansetron HCl 4 mg tablet 4 mg PO Q8H PRN #20 tab 03/15/20 07/15/20 03/16/20 Rx (Zofran) tramadol 50 mg tablet 50 mg PO Q6H PRN #30 tab 03/15/20 07/15/20 03/23/20 Rx cyclobenzaprine 10 mg tablet 5 mg PO TID PRN #30 tab 03/27/20 07/15/20 Unknown Rx enoxaparin 40 mg/0.4 mL 40 mg (0.4 mL) SUBCUT DAILY #30 03/27/20 07/15/20 03/23/20 Rx subcutaneous syringe dose azithromycin 600 mg tablet 600 mg PO DAILY 7 Days #7 tab 05/10/20 07/15/20 Unknown Rx Allergies Allergy/AdvReac Type Severity Reaction Status Date / Time Sulfa (Sulfonamide Allergy ALGY-Hives Verified 07/15/20 09:17 Antibiotics) Current Medications Generic Name Dose Route Start Last Admin Trade Name Freq PRN Reason Stop Dose Admin Hydrocodone Bitart/Acetaminophen 1 tab 06/16/21 20:45 06/17/21 08:27 Hydrocodone-Acetaminophen 5-325 Mg Tablet PO 1 tab Q4H PRN Administration MODERATE TO SEVERE PAIN Heparin Sodium (Porcine) 5,000 unit 06/16/21 20:45 06/17/21 04:40 Heparin 5,000 Unit/Ml Inj 1 Ml SUBCUT Not Given Q8H ELVIS Sodium Chloride 1,000 mls @ 75 mls/hr 06/16/21 20:45 06/16/21 22:16 Sodium Chloride 0.9% IV 75 mls/hr .[id number] ELVIS Administration Morphine Sulfate 2 mg 06/16/21 20:45 06/17/21 00:51 Morphine 4 Mg/Ml Sdv 1 Ml IVP 2 mg Q4H PRN Administration SEVERE PAIN Ondansetron HCl 4 mg 06/16/21 20:45 06/16/21 20:57 Ondansetron 2 Mg/Ml Sdv 2 Ml IVP 4 mg Q8H PRN Administration vomiting, or N/V if npo Pantoprazole Sodium 40 mg 06/17/21 09:00 06/17/21 09:[address] 40 Mg Tablet PO Not Given DAILY ELVIS PFSH Anesthesia Medical History Chronic cough Osteoporosis on calcitonin and calcium + vitamin D Surgical History History of hip replacement History of surgery on extremity (03/14/20) Uniplanar external fixation of the left lower extremity for tibial plateau fracture on 03/14/2020 Family History Mother CHF (congestive heart failure) Social History Alcohol intake: never Lives independently: Yes Household members: spouse Current occupational status: retired Data Anesthesia : 06/17/21 03:40 06/17/21 03:40 Short CBC 06/16/21 06/17/21 Range/Units 18:35 03:40 WBC 12.3 H 11.0 H (4.0-10.0) 10^3/uL Hgb 14.0 12.1 (11.5-15.3) g/dL Hct 43.6 36.8 L (37.0-47.0) % MCV 92.2 92.0 (81-99) fl Plt Count 220 203 (130-400) 10^3/cmm Neut % (Auto) 87.0 87.6 % Neut # (Auto) 10.70 H 9.67 H (1.8-7.7) 10^3/uL BMP 06/16/21 06/17/21 18:35 03:40 Sodium 137 137 Potassium 4.0 4.2 Chloride 101 104 Carbon Dioxide 25 25 BUN 11 11 Creatinine 0.5 0.5 Glucose 118 H 137 H Calcium 9.8 8.6 Liver Function 06/16/21 Range/Units 18:35 Total Bilirubin 0.2 (0.15-1.2) mg/dL AST 20 (0-32) U/L ALT 12 (0-33) U/L Alkaline Phosphatase 76 (35-105) IU/L Albumin 4.4 (3.5-5.2) g/dL Urine 06/16/21 Range/Units 20:50 Urine Color Yellow (Yellow) Urine Appearance Clear (CLEAR) Urine pH 5 (5-7) Ur Specific [place] 1.020 (1.005-1.030) Urine Protein Neg (Negative) Urine Glucose (UA) Norm (Normal) Urine Ketones 1+ H (Negative) Urine Nitrate Negative (Negative) Urine Bilirubin Neg (Negative) Ur Leukocyte Esterase Negative (Negative) Urine RBC 5-10 H (0-2) /hpf Urine WBC Rare (0-5) /hpf Coags 06/16/21 20:03 PT 13.20 INR 0.97 Cardiac Studies: No Data to Display
[2021-06-17] MEDS: ondansetron 2 mg/ML SDV 2 mL 4 MG IVP (10:05)
--- NOTE | 2021-06-17 10:20 | P.CONIM_ITS ---
Providers/Reason For Consult Consulting Physician/Specialty*: Gaurav Glynn MD;Orthopedic surgery Reason for Consult*: left intertrochanteric hip fracture Attending Physician: Iban Quintana MD Primary Care Provider: Camille Greene MD History of Present Illness History of Present Illness Freida Pavon is a 80 year old female who slipped on ice falling she is transferred to our emergency room no radiographs revealed a left intratrochanteric hip fracture. A CT scan of the head and neck showed no acute fracture. Medications/Allergies Home Medications Medication Instructions Recorded Confirmed Last Taken Type Calcium + D 1 tab PO DAILY 03/13/20 07/15/20 03/24/20 History [place] Tab 1 tab PO DAILY 03/13/20 07/15/20 03/24/20 History Cinnamon 1 cap PO DAILY 03/13/20 07/15/20 03/24/20 History Vitamin C 1 tab PO DAILY 03/13/20 07/15/20 03/24/20 History Vitamin D3 1 cap PO DAILY 03/13/20 07/15/20 03/24/20 History aspirin 81 mg tablet,delayed 81 mg PO DAILY 03/13/20 07/15/20 03/18/20 History release beta carotene 1 cap PO DAILY 03/13/20 07/15/20 03/24/20 History calcitonin (salmon) 200 See Rx Instructions .ROUTE .COMPLEX 03/13/20 07/15/20 03/11/20 History unit/actuation nasal spray codeine 10 mg-guaifenesin 100 mg/5 5 ml PO Q4H PRN 03/13/20 07/15/20 03/12/20 History mL oral liquid (Virtussin AC) cranberry 1 tab PO DAILY 03/13/20 07/15/20 03/24/20 History lutein 1 cap PO DAILY 03/13/20 07/15/20 03/24/20 History lysine 1 cap PO DAILY 03/13/20 07/15/20 03/24/20 History multivitamin 1 tab PO DAILY 03/13/20 07/15/20 03/24/20 History pantoprazole 40 mg tablet,delayed 40 mg PO DAILY 03/13/20 07/15/20 03/24/20 History release vitamin E 1 cap PO DAILY 11/22/20 03/26/21 12/03/20 History zinc 1 cap PO DAILY 03/13/20 07/15/20 03/24/20 History ondansetron HCl 4 mg tablet 4 mg PO Q8H PRN #20 tab 03/15/20 07/15/20 03/16/20 Rx (Zofran) tramadol 50 mg tablet 50 mg PO Q6H PRN #30 tab 03/15/20 07/15/20 03/23/20 Rx cyclobenzaprine 10 mg tablet 5 mg PO TID PRN #30 tab 03/27/20 07/15/20 Unknown Rx enoxaparin 40 mg/0.4 mL 40 mg (0.4 mL) SUBCUT DAILY #30 03/27/20 07/15/20 03/23/20 Rx subcutaneous syringe dose azithromycin 600 mg tablet 600 mg PO DAILY 7 Days #7 tab 05/10/20 07/15/20 Unknown Rx Allergies Allergy/AdvReac Type Severity Reaction Status Date / Time Sulfa (Sulfonamide Allergy ALGY-Hives Verified 07/15/20 09:17 Antibiotics) Current Medications Generic Name Dose Route Start Last Admin Trade Name Freq PRN Reason Stop Dose Admin Hydrocodone Bitart/Acetaminophen 1 tab 06/16/21 20:45 06/17/21 08:27 Hydrocodone-Acetaminophen 5-325 Mg Tablet PO 1 tab Q4H PRN Administration MODERATE TO SEVERE PAIN Heparin Sodium (Porcine) 5,000 unit 06/16/21 20:45 06/17/21 04:40 Heparin 5,000 Unit/Ml Inj 1 Ml SUBCUT Not Given Q8H ELVIS Sodium Chloride 1,000 mls @ 75 mls/hr 06/16/21 20:45 06/16/21 22:16 Sodium Chloride 0.9% IV 75 mls/hr .[id number] ELVIS Administration Morphine Sulfate 2 mg 06/16/21 20:45 06/17/21 00:51 Morphine 4 Mg/Ml Sdv 1 Ml IVP 2 mg Q4H PRN Administration SEVERE PAIN Ondansetron HCl 4 mg 06/16/21 20:45 06/16/21 20:57 Ondansetron 2 Mg/Ml Sdv 2 Ml IVP 4 mg Q8H PRN Administration vomiting, or N/V if npo Pantoprazole Sodium 40 mg 06/17/21 09:00 06/17/21 09:[address] 40 Mg Tablet PO Not Given DAILY ELVIS PFSH Acute PFSH: Medical History Chronic cough Osteoporosis on calcitonin and calcium + vitamin D Surgical History History of hip replacement History of surgery on extremity (03/14/20) Uniplanar external fixation of the left lower extremity for tibial plateau fracture on 03/14/2020 Family History Mother CHF (congestive heart failure) Social History Alcohol intake: never Lives independently: Yes Household members: spouse Current occupational status: retired Vitals/I&O/Wt Last Vital Signs Temp 97.1 F L 06/17/21 09:50 Pulse 92 06/17/21 07:55 Resp 16 06/17/21 09:50 BP 142/62 06/17/21 09:50 Pulse Ox 93 06/17/21 09:50 06/16/21 06/17/21 06/17/21 22:59 06:59 14:59 Intake Total 237.5 / 237.5 0 / 237.5 Output Total 75 / 75 Balance 237.5 / 237.5 -75 / 162.5 Weight last 48 hrs Weight 115 lb Weight 110 lb Physical Exam Narrative: The patient is awake and alert She has clear shortening and external rotation of her left hip. There is exquisite pain with motion of the left hip. She can flex and extend her toes and ankle on the left without motor deficit She has a weak but palpable dorsalis pedis pulse. Urinary Catheter Management: Vera: Cath Placed During This Visit: yes Reason for Continuing Indwelling Catheter: Perioperative Use in Selected Surgeries Urinary Catheter Date of Insertion: 06/17/21 Urinary Catheter Time of Insertion: 00:01 Data : 06/17/21 03:40 06/17/21 03:40 Other data: Patient has displaced 2 part left intratrochanteric hip fracture A&P Assessment and plan (1) Intertrochanteric fracture of left hip: I discussed options with the patient.. I told the patient we could treat this nonoperatively but certainly they would be at risk for medical problems without surgery. Theywould have problems with pain that would require narcotics for pain control. They would require a long period of bedrest sales consultant risk for pneumonia and skin breakdown. I discussed surgical intervention with the patient. I told them with open reduction internal fixation they should be able to be mobilized and resume ambulatory status. With her degree of osteopenia I think the best choice would be an intramedullary device. We can eliminate the problems associated with prolonged bed rest and would have better control of pain. Certainly there would be inherent risk with surgery. These would would include the risk of cardiac complications, stroke, infection, and even . I discussed risk of any orthopedic implant including nonunion, malunion, a component failure. I discussed the possible need for component removal. I discussed risk of deep venous thromboses and pulmonary emboli that are present with any treatment and the importance of DVT prophylaxis. The patient expressed good understanding of alternative treatments, seem to comprehend, and agrees to surgical intervention. Status: Acute Coding Level of Care Code Acute Associate Quality Engineer for Pili Reyez Diagnoses Intertrochanteric fracture of left hip S72.142A
--- NOTE | 2021-06-17 12:01 | XR_ITS ---
WS: [id number] C[facility] RADIOGRAPHS HIP; 3 IMAGES HISTORY: OR PICS COMPARISON: 06/16/2021 Gamma nail and intramedullary contreras have been placed stabilizing the intertrochanteric fracture which i s impacted and mildly comminuted. The entire hardware is not imaged. XR/XR hip LT 1V wo/w pel [id number] IMPRESSION: Intraoperative imaging during ORIF LEFT intertrochanteric hip fracture.
--- NOTE | 2021-06-17 12:09 | PM.OP ---
Operative Report Date of procedure: June 17, 2021 Pre-op diagnosis: Preop Diagnosis Left intertrochanteric hip fracture Post-op diagnosis: same Post-op diagnosis: Same Post-op findings: Same Procedure done: Open reduction internal fixation left hip with intramedullary device Pathology: none sent Surgeon: Gaurav Glynn Anesthesia: General Estimated blood loss (mL): 200 Condition: stable Disposition: PACU Procedure: The patient was taken to the operating room. They were given 1 g of Ancef. They were positioned on the fracture table with the right lower extremity in gentle traction. A timeout was performed. A 2 cm long incision was made proximal to the greater trochanter scalpel blade. Dissection was carried down to tip the greater trochanter. A guidepin was passed manually from the tip of the trochanter down the shaft. The proximal reamer was utilized to open up the proximal canal. Due to the small canal size a ball-tipped guidewire was passed and sequential reaming was accomplished up to 12.5 mm. An 11 mm by 380 mm Jenna gamma nail was passed down the canal without difficulty. Under visualization of fluoroscopy a guidepin was driven up into the head and neck at 125? angle. It was measured at 105 mm in length and a lag screw similar length was then placed and locked into place with the proximal locking screw. Intraoperative imaging was obtained verifying satisfactory position of the hardware and reduction of the fracture. Deep tissues were closed with 0 Vicryl as were subcutaneous tissues. The skin was closed with skin lacie. Sterile dressings were applied. The patient was extubated and taken to recovery room in stable condition.
--- NOTE | 2021-06-17 12:15 | PC.CHAP ---
Pastoral Care Encounter/Spiritual Assessment Type of Contact [] Declined shuttle van driver visit [] Patient/Family/Request visit [] Outpatient visit [] Follow-up visit [] Physician referral [] Code/Alert [X] Routine visit [] Staff referral [] Actively dying [] Patient sleeping [] Family support [] [X] Out of room [] Palliative care [] [] Receiving care in room [] Pre-surgical visit [] Trauma [] Long length of stay [] ICU visit [] Other: Relational/Emotional Strength [] Patient feels connected with others/family/visitors/staff [] Distress [] Loneliness/isolation [] Abandonment Spirituality of Patient [] Person of Urvashi [] Attends Voodoo of their Urvashi [] Believes in Prayer [] Reads Bible or Yazidi materials [] There are Spiritual issues to be addressed Artist Scientific Interventions [] Prayer [] Active listening [] Non-anxious presence [] Spiritual/emotional support [] Crisis/trauma care [] Spiritual counseling [] Bereavement support [] Provided bereavement packet [] Provided Bible/devotional materials [] Provided toy/stuffed animal, coloring book to patient or family member [] Provided Communion [] Anointing/[place] [] Salvation [] Completed spiritual assessment [] Other: Impact on Illness or Injury [] Angry [] Fearful [] Anxious [] Often cries [] Exhaustion [] Unable to work [] Unable to attend quaker [] Unable to walk/stand [] Unable to read [] Unable to drive [] Unable to eat/drink [] Unable to sleep [] Unable to be with family [] Patient intubated [] Other: Summary Time spent with patient
[2021-06-17] MEDS: HYDROmorphone 1 mg/mL INJ 1 mL 0.5 MG IVP (12:30)
--- NOTE | 2021-06-17 13:32 | PC.OT ---
Orders received. Chart reviewed. Patient having surgery today for L femur fx. Will attempt OT eval after surgery when new order for ortho is received. Bobby Newman, OTR/L
--- NOTE | 2021-06-17 15:43 | P.PN_ITS ---
Subjective Subjective: Patient was seen this morning, after her hip surgery, denies she tells me that she slipped on ice, no chest pain, no palpitations, no shortness of breath, no strokelike symptoms, no seizure-like symptoms Vitals/I&O/Wt Last Vital Signs Temp 98.3 F 06/17/21 13:40 Pulse 83 06/17/21 13:46 Resp 16 06/17/21 13:46 BP 118/67 06/17/21 13:40 Pulse Ox 94 06/17/21 13:46 06/17/21 06/17/21 06/17/21 06:59 14:59 22:59 Intake Total 0 / 237.5 1000 / 1000 Output Total 75 / 75 500 / 500 Balance -75 / 162.5 500 / 500 Weight last 48 hrs Weight 52.163 kg Weight 49.895 kg Physical Exam Const: COMMON NORMALS: no acute distress and patient oriented x3 Resp: COMMON NORMALS: normal respiratory effort, No retractions, No use of accessory muscles and clear to auscultation bilaterally AUSCULTATION: clear to auscultation bilaterally Cardio: COMMON NORMALS: regular rate, regular rhythm, S1 normal heart sound present and S2 normal heart sound present RATE: regular rate RHYTHM: regular rhythm HEART SOUNDS: S1 normal heart sound present and S2 normal heart sound present GI: COMMON NORMALS: Normal to inspection, nondistended, normoactive bowel sounds present, Soft to palpation, non-tender and No hepatosplenomegaly present PALPATION: Yes Soft to palpation and Yes No hepatosplenomegaly present Extremity: COMMON NORMALS: no pedal edema Neuro: COMMON NORMALS: patient oriented x3 Psych: COMMON NORMALS: mental status grossly normal Urinary Catheter Management: Vera: Cath Placed During This Visit: yes Reason for Continuing Indwelling Catheter: Perioperative Use in Selected Surgeries Urinary Catheter Date of Insertion: 06/17/21 Urinary Catheter Time of Insertion: 00:01 Data : 06/17/21 03:40 06/17/21 03:40 A&P Assessment and plan (1) Hip fracture: Status: Acute Plan Fall left hip fracture Status post open reduction internal fixation left hip postop day 0 Dr. Glynn on consult cardiac diet Fall precautions Pain control Repeat labs in am PT/OT consult osteoporosis GERD Protonix 40 mg PO daily DVT ppx Heparin 5000 units q8hr SCDs Attestations Medical Necessity Statement*: Patient requires hospitalization for hip fracture Coding Level of Care Code Acute Renovator Machine Operator for Pili Reyez Diagnoses Hip fracture S72.009A
[2021-06-17] MEDS: clindamycin 900 MG/50 ML PREMIX 100 MG IV (20:34)
[2021-06-18] VITALS (7 sets, daily range): BP systolic 103–119; BP diastolic 57–67; PULSE 79–94; RESP 16–18; TEMP 36.5–37.2; O2SAT 90–99
[2021-06-18] MEDS: sodium chloride 0.9% 1,000 ML 75 ML IV ×2 (02:30→15:56)
[2021-06-18 03:41] LABS: Basophils % 0.1 %; Hematocrit 27.3 % (37.0-47.0); Hemoglobin 8.8 g/dL (11.5-15.3); Lymphocytes # 1.1 10^3/uL (0.8-4.8); Lymphocytes % 14.4 %; Mean Corpuscular HGB Conc 32.2 g/dL (30.0-36.0); Mean Corpuscular Hemoglobin 30.2 pg (28.0-34.0); Mean Corpuscular Volume 93.8 fl (81-99); Mean Platelet Volume 10.5 fL (7.4-10.4); Monocytes # 1.1 10^3/uL (0.2-0.9); Monocytes % 14.5 %; Neutrophils # 5.46 10^3/uL (1.8-7.7); Neutrophils % 70.7 %; Nucleated Red Blood Cells % 0 %; Platelet Count 152 10^3/cmm (130-400); Red Blood Count 2.91 10^6/uL (4.1-5.3); Red Cell Distribution Width 13.2 % (12.1-15.1); White Blood Count 7.7 10^3/uL (4.0-10.0)
[2021-06-18] MEDS: clindamycin 900 MG/50 ML PREMIX 100 MG IV ×2 (03:52→15:19)
[2021-06-18 04:08] LABS: Anion Gap 10.2 (5-19); Blood Urea Nitrogen 12 mg/dL (8-23); Calcium 7.7 mg/dL (8.5-10.5); Carbon Dioxide 26 mmol/L (22-29); Chloride 104 mmol/L (98-107); Glucose 123 mg/dL (65-115); Osmolality Calculated 283 mOsm/kg (285-295); Potassium 4.2 mmol/L (3.5-5.1); Sodium 136 mmol/L (136-145)
[2021-06-18] MEDS: TRAMadol 50 mg Tablet 25 MG PO (09:18)
[2021-06-18] MEDS: aspirin 81 mg EC Tablet PO (09:18)
--- NOTE | 2021-06-18 11:40 | PC.CHAP ---
Pastoral Care Encounter/Spiritual Assessment Type of Contact [] Declined computer recycling worker visit [] Patient/Family/Request visit [] Outpatient visit [X] Follow-up visit [] Physician referral [] Code/Alert [] Routine visit [] Staff referral [] Actively dying [] Patient sleeping [] Family support [] [] Out of room [] Palliative care [] [] Receiving care in room [] Pre-surgical visit [] Trauma [] Long length of stay [] ICU visit [X] Other: + 3 family members Relational/Emotional Strength [X] Patient feels connected with others/family/visitors/staff [] Distress [] Loneliness/isolation [] Abandonment Spirituality of Patient [X] Person of Urvashi [X] Attends Buddhism of their Urvashi [X] Believes in Prayer [X] Reads Bible or Tenriism materials [] There are Spiritual issues to be addressed Meteorological Equipment Repairer Interventions [X] Prayer [X] Active listening [X] Non-anxious presence [] Spiritual/emotional support [] Crisis/trauma care [] Spiritual counseling [] Bereavement support [] Provided bereavement packet [X] Provided Bible/devotional materials [] Provided toy/stuffed animal, coloring book to patient or family member [] Provided Communion [] Anointing/[place] [] Salvation [X] Completed spiritual assessment [] Other: Impact on Illness or Injury [] Angry [] Fearful [] Anxious [] Often cries [] Exhaustion [] Unable to work [] Unable to attend judaism [] Unable to walk/stand [] Unable to read [] Unable to drive [] Unable to eat/drink [] Unable to sleep [] Unable to be with family [] Patient intubated [] Other: Summary: Visit with pt and her spouse. Pt has strong support system through family, taoist, and community. Prayed with pt and her family for healing in all forms. Provided Daily Bread. Time spent with patient: 15 mins
[2021-06-18] MEDS: ondansetron 2 mg/ML SDV 2 mL 4 MG IVP (12:22)
[2021-06-18 13:27] LABS: Hemoglobin 8.5 g/dL (11.5-15.3)
--- NOTE | 2021-06-18 13:31 | PM.PN ---
Subjective Subjective: Patient was seen this morning, at bedside, she does tell me that she feels weak, Vera catheter in place, she lives at home with her in [place], intends on going home, has had a poor appetite, did not eat much this morning, just the maguire she was given Vitals/I&O/Wt Last Vital Signs Temp 97.7 F 06/18/21 12:00 Pulse 79 06/18/21 12:00 Resp 18 06/18/21 12:00 BP 119/67 06/18/21 12:00 Pulse Ox 92 06/18/21 12:00 06/17/21 06/18/21 06/18/21 22:59 06:59 14:59 Intake Total 50 / 2050 50 / 2100 360 / 360 Output Total 300 / 800 225 / 1025 Balance -250 / 1250 -175 / 1075 360 / 360 Weight last 48 hrs Weight 52.163 kg Weight 49.895 kg Physical Exam Const: COMMON NORMALS: no acute distress and patient oriented x3 Resp: COMMON NORMALS: normal respiratory effort, No retractions, No use of accessory muscles and clear to auscultation bilaterally AUSCULTATION: clear to auscultation bilaterally Cardio: COMMON NORMALS: regular rate, regular rhythm, S1 normal heart sound present and S2 normal heart sound present RATE: regular rate RHYTHM: regular rhythm HEART SOUNDS: S1 normal heart sound present and S2 normal heart sound present GI: COMMON NORMALS: Normal to inspection, nondistended, normoactive bowel sounds present, Soft to palpation, non-tender and No hepatosplenomegaly present PALPATION: Yes Soft to palpation and Yes No hepatosplenomegaly present Extremity: COMMON NORMALS: no pedal edema Neuro: COMMON NORMALS: patient oriented x3 Psych: COMMON NORMALS: mental status grossly normal Urinary Catheter Management: Vera: Cath Placed During This Visit: yes Reason for Continuing Indwelling Catheter: Perioperative Use in Selected Surgeries Urinary Catheter Date of Insertion: 06/17/21 Urinary Catheter Time of Insertion: 00:01 Data : 06/18/21 13:10 06/18/21 03:10 A&P Assessment and plan (1) Hip fracture: Status: Acute Plan Fall left hip fracture Status post open reduction internal fixation left hip postop [address] Glynn on consult cardiac diet Fall precautions Remove Vera catheter Pain control Repeat labs in am PT/OT consult Anemia -Hemoglobin 8.5 -Hold Lovenox -Ferritin, iron, TIBC, Hemoccult stool -Protonix, Carafate -Monitor hemoglobin osteoporosis GERD Protonix 40 mg PO daily DVT ppx Lovenox on hold SCDs Attestations Medical Necessity Statement*: Patient requires hospitalization for hip fracture Coding Level of Care Code Acute Assistant Counsel for Pili Reyez Diagnoses Hip fracture S72.009A
[2021-06-18 14:44] LABS: Ferritin 94 ng/mL (15-150); Iron 46 ug/dL (37-145)
[2021-06-18] MEDS: sucralfate 1 gm Tablet PO (15:19)
[2021-06-18] MEDS: pantoprazole 40 mg SDV IVP (15:20)
[2021-06-18 20:20] LABS: Hematocrit 25.5 % (37.0-47.0); Hemoglobin 8.1 g/dL (11.5-15.3)
[2021-06-19] VITALS (12 sets, daily range): BP systolic 109–150; BP diastolic 56–73; PULSE 80–106; RESP 16–19; TEMP 36.5–37.2; O2SAT 91–97
[2021-06-19 04:46] LABS: Basophils % 0.1 %; Eosinophils % 0.3 %; Hematocrit 22.9 % (37.0-47.0); Hemoglobin 7.4 g/dL (11.5-15.3); Lymphocytes % 15.1 %; Mean Corpuscular HGB Conc 32.3 g/dL (30.0-36.0); Mean Corpuscular Hemoglobin 30.3 pg (28.0-34.0); Mean Corpuscular Volume 93.9 fl (81-99); Mean Platelet Volume 10.8 fL (7.4-10.4); Monocytes # 0.9 10^3/uL (0.2-0.9); Monocytes % 12.8 %; Neutrophils # 4.94 10^3/uL (1.8-7.7); Neutrophils % 71.6 %; Nucleated Red Blood Cells % 0 %; Platelet Count 142 10^3/cmm (130-400); Red Blood Count 2.44 10^6/uL (4.1-5.3); Red Cell Distribution Width 13.1 % (12.1-15.1); White Blood Count 6.9 10^3/uL (4.0-10.0)
[2021-06-19] MEDS: pantoprazole 40 mg SDV IVP ×2 (05:02→17:38)
[2021-06-19] MEDS: sucralfate 1 gm Tablet PO ×2 (05:02→17:38)
[2021-06-19] MEDS: sodium chloride 0.9% 1,000 ML 75 ML IV (05:02)
[2021-06-19 05:04] LABS: Anion Gap 11.7 (5-19); Blood Urea Nitrogen 11 mg/dL (8-23); Calcium 7.6 mg/dL (8.5-10.5); Carbon Dioxide 25 mmol/L (22-29); Chloride 105 mmol/L (98-107); Glucose 101 mg/dL (65-115); Osmolality Calculated 286 mOsm/kg (285-295); Potassium 3.7 mmol/L (3.5-5.1); Sodium 138 mmol/L (136-145)
[2021-06-19] MEDS: aspirin 81 mg EC Tablet PO (09:56)
[2021-06-19] MEDS: TRAMadol 50 mg Tablet 25 MG PO (09:57)
[2021-06-19] MEDS: acetaminophen 325 mg Tablet 650 MG PO (09:58)
[2021-06-19 10:21] LABS: Iron 13 ug/dL (37-145); Percent Saturation 9.7 % (20-50); Total Iron Binding Capacity 133 mcg/dl; Unsaturated Iron Binding 120 ug/dL (112-347)
[2021-06-19 12:40] LABS: Hemoglobin 7.2 g/dL (11.5-15.3)
--- NOTE | 2021-06-19 15:38 | P.DS_ITS ---
Discharge Providers Date of Admission: 06/16/21 19:37 Date of Discharge: June 19, 2021 Attending Provider at Admission: Lashanda Mistry Attending Provider at Discharge: Gilmer Avila Primary Care Provider: Camille Greene MD Diagnoses at Discharge Discharge Diagnosis (1) Hip fracture: Status: Acute Reason for Visit Reason for Visit: Fell on ice Hospital Course Hospital Course Pleasant 80-year-old lady who slipped on ice falling with resulting left i ntertrochanteric hip fracture underwent ORIF on 06/17, with hospitalization complicated by acute on chronic anemia with anemia noted back in 2019, but on admission hemoglobin was 14. Possibly some dilutional component, has been receiving IV fluid, however, hemoglobin had continued to trend down gradually down to 7.2 and is given a PRBC transfusion prior to discharge given some symptoms with mobilization Noted to have iron deficiency anemia. Reports prior history of colonoscopy within the last 5 years. Never had an EGD. She is asked to hold aspirin for now. She is started on PPI, sucralfate. Hemoccult was requested, but could not be collected. She is started on iron replacement. Please reassess blood counts, anemia may be related to acute fracture and surgery, however, given iron deficiency, likely chronic component of anemia, please refer for additional endoscopic evaluation by upper and lower endoscopy. Physical Exam Narrative: at bedside. Const: COMMON NORMALS: no acute distress and patient oriented x3 HENMT: COMMON NORMALS: oropharynx normal Neck/C-Spine: COMMON NORMALS: no JVD Resp: COMMON NORMALS: normal respiratory effort and clear to auscultation bilaterally AUSCULTATION: clear to auscultation bilaterally Cardio: COMMON NORMALS: no JVD, regular rhythm, S1 normal heart sound present, S2 normal heart sound present and No murmurs present (Cardio) RHYTHM: regular rhythm HEART SOUNDS: S1 normal heart sound present and S2 normal heart sound present GI: COMMON NORMALS: Normal to inspection, nondistended, normoactive bowel sounds present, Soft to palpation and non-tender PALPATION: Yes Soft to palpation Extremity: COMMON NORMALS: no joint enlargement and no pedal edema OTHER: Mild swelling left thigh with fracture. Dry blood strikethrough on dressing. Neuro: COMMON NORMALS: patient oriented x3 and moves all extremities Skin: COMMON NORMALS: no rashes or lesions noted GENERAL SKIN EXAM: no rashes or lesions noted Urinary Catheter Management: Vera: Cath Placed During This Visit: yes Reason for Continuing Indwelling Catheter: Perioperative Use in Selected Surgeries Urinary Catheter Date of Insertion: 06/17/21 Urinary Catheter Time of Insertion: 00:01 Discharge Data Studies Completed and Pending Completed Studies During Hospitalization Category Date Time Status CT cervical spin wo con* [id number] Urgent Cat Scan 06/16/21 17:[address] head wo con* [id number] Urgent Cat Scan 06/16/21 17:20 Completed CXRP [XR chest 1V portable [id number]] Stat Exams 06/16/21 17:52 Completed XR femur LT min 2V* [id number] Stat Exams 06/16/21 17:20 Completed XR hip LT 1V wo/w pel [id number] Routine Exams 06/17/21 12:01 Completed XR hip LT 2-3V wo/w pel* [id number] Stat Exams 06/16/21 17:20 Completed Pending at discharge Category Date Time Status Basic Metabolic Panel AM LABS Lab 06/20/21 04:00 Ordered Basic Metabolic Panel AM LABS Lab 06/21/21 04:00 Ordered Basic Metabolic Panel AM LABS Lab 06/22/21 04:00 Ordered Complete Blood Count w/Auto AM LABS Lab 06/20/21 04:00 Ordered Complete Blood Count w/Auto AM LABS Lab 06/21/21 04:00 Ordered Complete Blood Count w/Auto AM LABS Lab 06/22/21 04:00 Ordered Occult Blood Stool [Immunochemical Fecal OCB] Routine Lab 06/18/21 13:30 Uncollected PRBC [Leukocyte Reduced RBC] Routine Lab 06/19/21 14:40 Results Type and Screen Routine Lab 06/19/21 14:40 Results Radiology Impressions Cervical Spine CT 06/16/21 17:20 IMPRESSION: 1. No CT evidence of acute cervical spine traumatic injury. 2. Additional findings, as above. Femur X-Ray 06/16/21 17:20 IMPRESSION: 1. Comminuted displaced left intertrochanteric femur fracture. Head CT 06/16/21 17:20 IMPRESSION: 1. No CT evidence of acute intracranial pathology. 2. Additional findings, as above. Hip/Pelvis X-Ray 06/16/21 17:20 IMPRESSION: Comminuted displaced left intertrochanteric femur fracture. Chest X-Ray 06/16/21 17:52 IMPRESSION: No acute finding. Hip X-Ray 06/17/21 12:01 IMPRESSION: Intraoperative imaging during ORIF LEFT intertrochanteric hip fracture. Laboratory Results WBC 6.9 10^3/uL (4.0-10.0) 06/19/21 03:39 RBC 2.44 10^6/uL (4.1-5.3) L 06/19/21 03:39 Hgb 7.2 g/dL (11.5-15.3) L 06/19/21 12:25 Hct 22.9 % (37.0-47.0) L 06/19/21 03:39 MCV 93.9 fl (81-99) 06/19/21 03:39 MCH 30.3 pg (28.0-34.0) 06/19/21 03:39 MCHC 32.3 g/dL (30.0-36.0) 06/19/21 03:39 RDW 13.1 % (12.1-15.1) 06/19/21 03:39 Plt Count 142 10^3/cmm (130-400) 06/19/21 03:39 MPV 10.8 fL (7.4-10.4) H 06/19/21 03:39 Neut % (Auto) 71.6 % 06/19/21 03:39 Lymph % (Auto) 15.1 % 06/19/21 03:39 [place] % (Auto) 12.8 % 06/19/21 03:39 Eos % (Auto) 0.3 % 06/19/21 03:39 Baso % (Auto) 0.1 % 06/19/21 03:39 Reticulocyte % (Auto) 2.0 % (0.5-2.0) 06/18/21 13:30 Neut # (Auto) 4.94 10^3/uL (1.8-7.7) 06/19/21 03:39 Lymph # (Auto) 1.0 10^3/uL (0.8-4.8) 06/19/21 03:39 [place] # (Auto) 0.9 10^3/uL (0.2-0.9) 06/19/21 03:39 Eos # (Auto) 0.0 10^3/uL (0.0-0.8) 06/19/21 03:39 Baso # (Auto) 0.0 10^3/uL (0.0-0.1) 06/19/21 03:39 Nucleated RBC % (auto) 0 % 06/19/21 03:39 Nucleated RBCs # 0.0 /100WBC 06/19/21 03:39 PT 13.20 SECONDS (12.1-14.9) 06/16/21 20:03 INR 0.97 (0.8-1.2) 06/16/21 20:03 Sodium 138 mmol/L (136-145) 06/19/21 03:39 Potassium 3.7 mmol/L (3.5-5.1) 06/19/21 03:39 Chloride 105 mmol/L (98-107) 06/19/21 03:39 Carbon Dioxide 25 mmol/L (22-29) 06/19/21 03:39 Anion Gap 11.7 (5-19) 06/19/21 03:39 BUN 11 mg/dL (8-23) 06/19/21 03:39 Creatinine 0.4 mg/dL (0.5-0.9) L 06/19/21 03:39 GFR Calculation Not Reportable 06/19/21 03:39 Glucose 101 mg/dL (65-115) 06/19/21 03:39 Calculated Osmolality 286 mOsm/kg (285-295) 06/19/21 03:39 Calcium 7.6 mg/dL (8.5-10.5) L 06/19/21 03:39 Iron 13 ug/dL (37-145) L 06/19/21 03:39 TIBC 133 mcg/dl 06/19/21 03:39 % Saturation 9.7 % (20-50) L 06/19/21 03:39 Unsat Iron Binding 120 ug/dL (112-347) 06/19/21 03:39 Ferritin 94 ng/mL (15-150) 06/18/21 03:10 Total Bilirubin 0.2 mg/dL (0.15-1.2) 06/16/21 18:35 AST 20 U/L (0-32) 06/16/21 18:35 ALT 12 U/L (0-33) 06/16/21 18:35 Alkaline Phosphatase 76 IU/L (35-105) 06/16/21 18:35 Total Protein 6.7 g/dL (6.6-8.7) 06/16/21 18:35 Albumin 4.4 g/dL (3.5-5.2) 06/16/21 18:35 Globulin 2.3 g/dL (1.3-4.6) 06/16/21 18:35 Urine Color Yellow (Yellow) 06/16/21 20:50 Urine Appearance Clear (CLEAR) 06/16/21 20:50 Urine pH 5 (5-7) 06/16/21 20:50 Ur Specific [place] 1.020 (1.005-1.030) 06/16/21 20:50 Urine Protein Neg (Negative) 06/16/21 20:50 Urine Glucose (UA) Norm (Normal) 06/16/21 20:50 Urine Ketones 1+ (Negative) H 06/16/21 20:50 Urine Blood 2+ (Negative) H 06/16/21 20:50 Urine Nitrate Negative (Negative) 06/16/21 20:50 Urine Bilirubin Neg (Negative) 06/16/21 20:50 Urine Urobilinogen Neg mg/dL (Negative) 06/16/21 20:50 Ur Leukocyte Esterase Negative (Negative) 06/16/21 20:50 Urine RBC 5-10 /hpf (0-2) H 06/16/21 20:50 Urine WBC Rare /hpf (0-5) 06/16/21 20:50 Ur Squamous Epith Cells Rare /hpf (0-5) 06/16/21 20:50 Amorphous Sediment Not Reportable 06/16/21 20:50 Urine Bacteria None /hpf (NONE) 06/16/21 20:50 Vitals Last Vital Signs Temp 98.2 F 06/19/21 11:17 Pulse 91 06/19/21 11:17 Resp 17 06/19/21 11:17 BP 109/57 06/19/21 11:17 Pulse Ox 94 06/19/21 11:17 Discharge Plan Discharge Patient Disposition: Home Health Service Condition: Stable Prescriptions: New pantoprazole 40 mg tablet,delayed release (DR/EC) 40 mg PO Q12H Qty: 84 0RF sucralfate 1 gram Tablet 1 g PO Q12H Qty: 28 0RF ondansetron HCl [Zofran] 4 mg tablet 4 mg PO TID PRN (Reason: nausea and vomiting) 5 Days Qty: 15 0RF ferrous sulfate 324 mg (65 mg iron) tablet,delayed release (DR/EC) 324 mg PO EVERY OTHER DAY Qty: 90 0RF Continued [place] Tab 1 tab PO DAILY 0RF Multi-Vitamin Tablet 1 tab PO DAILY 0RF vitamin E 100 unit Capsule 100 unit PO DAILY 0RF Calcium + D 600 mg(1,500mg) -200 unit Tablet 1 tab PO DAILY 0RF beta carotene 30 mg Capsule 30 mg PO DAILY 0RF Vitamin C 100 mg Tablet 100 mg PO DAILY 0RF cranberry 400 mg Capsule 400 mg PO DAILY 0RF Rx Instructions: administer with a meal zinc 50 mg Tablet 50 mg PO DAILY 0RF lysine 500 mg Tablet 500 mg PO DAILY 0RF Cinnamon 500 mg Capsule 500 mg PO DAILY 0RF Vitamin D3 25 mcg (1,000 unit) Tablet 25 mcg PO DAILY 0RF lutein 6 mg Tablet 6 mg PO DAILY 0RF Rx Instructions: give with meal/snack alendronate 70 mg tablet 70 mg PO Q7D 0RF Held aspirin 81 mg Tablet,Delayed Release (Dr/Ec) 81 mg PO DAILY 0RF Hold Instructions: Resume on 03/29/20. Discharge Orders: Discharge Order (Routine); Ordered 06/19/21 Ordered By: Gilmer Avila Other Ambulatory Orders: Complete Blood Count w/Auto (Routine) Timeframe: 3 Days Location: Determined by Patient Ordered By: Gilmer Avila Referrals: Camille Greene MD [Primary Care Provider] - 06/27/21 11:15 am Gaurav Glynn MD [Physician] - 2 weeks Discharge Diet: Regular Discharge Activity: As per PT/OT instructions Patient Instructions: Opioid Safety Activity Restrictions/Additional Instructions: May weight-bear as tolerated left lower extremity Okay to shower. May remove dressings in 48 hours. Please have labs drawn for recheck blood counts in 3 days due to anemia. Discuss with your primary doctor follow up of anemia and referral for upper and lower endoscopy for other sources of blood loss in case anemia persists. Hold aspirin for now until found safe to resume by your primary doctor. Discharge Attestations Time Spent in Discharge Care*: greater than 30 min Status at Discharge: Cognitive status at discharge: cognitively intact , Behavioral status at discharge: cooperative , Quality Metrics Clinical Quality Measures [ No reported AMI, CVA or VTE this stay] Coding Level of Care Code Acute Chg FW DC note Diagnoses Hip fracture S72.009A
--- NOTE | 2021-06-19 16:21 | PC.SOCIAL ---
IMM UPDATED IMM dated and initialed and copy given to patient
--- NOTE | 2021-06-19 18:18 | PM.PN ---
Subjective Subjective: Patient ambulatory over short distances with therapy. Pain under adequate control Vitals/I&O/Wt Last Vital Signs Temp 98.2 F 06/19/21 17:33 Pulse 90 06/19/21 17:33 Resp 18 06/19/21 17:33 BP 127/65 06/19/21 17:33 Pulse Ox 96 06/19/21 17:33 06/19/21 06/19/21 06/19/21 06:59 14:59 22:59 Intake Total 982.5 / 2342.5 1316.25 / 1316.25 0 / 1316.25 Balance 982.5 / 1742.5 1316.25 / 1316.25 0 / 1316.25 Physical Exam Narrative: Left hip dressings clean and dry. Some swelling left thigh. Urinary Catheter Management: Vera: Cath Placed During This Visit: yes Reason for Continuing Indwelling Catheter: Perioperative Use in Selected Surgeries Urinary Catheter Date of Insertion: 06/17/21 Urinary Catheter Time of Insertion: 00:01 Data : 06/19/21 12:25 06/19/21 03:39 A&P Assessment and plan (1) Intertrochanteric fracture of left hip: Status: Acute (2) Status post open reduction and internal fixation (ORIF) of fracture: Freida is making good progress with therapy. Anticipate discharge home tomorrow with home health. May follow-up with me in 1 month with x-rays. Status: Acute (3) Acute anemia: Status: Acute Attestations Medical Necessity Statement*: As per medicine Coding Level of Care Code Acute Child Welfare Counselor for myrna Reyez Diagnoses Intertrochanteric fracture of left hip S72.142A Status post open reduction and internal fixation (ORIF) of fracture Z98.890; Z87.81 Acute anemia D64.9
--- NOTE | 2021-06-19 19:38 | PC.NURSE ---
patient stated that she did not feel comfortable being discharged today with how late it would be after getting the blood. Dr. Avila notified and verbalized that the patient could stay one more night.
[2021-06-20 02:43] LABS: Basophils % 0.4 %; Eosinophils # 0.1 10^3/uL (0.0-0.8); Eosinophils % 0.9 %; Hematocrit 25.8 % (37.0-47.0); Hemoglobin 8.4 g/dL (11.5-15.3); Lymphocytes # 1.3 10^3/uL (0.8-4.8); Mean Corpuscular HGB Conc 32.6 g/dL (30.0-36.0); Mean Corpuscular Hemoglobin 29.8 pg (28.0-34.0); Mean Corpuscular Volume 91.5 fl (81-99); Mean Platelet Volume 10.6 fL (7.4-10.4); Monocytes # 0.7 10^3/uL (0.2-0.9); Monocytes % 10.7 %; Neutrophils # 4.73 10^3/uL (1.8-7.7); Neutrophils % 68.6 %; Nucleated Red Blood Cells % 0 %; Platelet Count 152 10^3/cmm (130-400); Red Blood Count 2.82 10^6/uL (4.1-5.3); Red Cell Distribution Width 14.1 % (12.1-15.1); White Blood Count 6.9 10^3/uL (4.0-10.0)
[2021-06-20 03:04] LABS: Anion Gap 9.5 (5-19); Blood Urea Nitrogen 13 mg/dL (8-23); Calcium 7.1 mg/dL (8.5-10.5); Carbon Dioxide 26 mmol/L (22-29); Chloride 105 mmol/L (98-107); Glucose 96 mg/dL (65-115); Osmolality Calculated 284 mOsm/kg (285-295); Potassium 3.5 mmol/L (3.5-5.1); Sodium 137 mmol/L (136-145)
[2021-06-20 04:00] VITALS: BP 143/81; PULSE 87; RESP 19; TEMP 37.1; O2SAT 93
[2021-06-20 06:00] VITALS: PULSE 82
[2021-06-20] MEDS: pantoprazole 40 mg SDV IVP (06:37)
[2021-06-20] MEDS: sucralfate 1 gm Tablet PO (06:40)
[2021-06-20 07:22] VITALS: BP 138/73; PULSE 89; RESP 17; TEMP 36.7; O2SAT 94
[2021-06-20 11:34] VITALS: BP 147/68; PULSE 98; RESP 18; TEMP 37.1; O2SAT 97
--- NOTE | 2021-06-20 12:01 | PC.NURSE ---
patient and verbalized understanding of discharge instructions, home medications, and follow up appointments. Prescriptions called into [facility] per patient request.
[2021-06-20 12:08] VITALS: BP 147/68; PULSE 98; RESP 18; TEMP 37.1; O2SAT 97
--- NOTE | 2021-06-20 13:58 | P.PN_ITS ---
Subjective Subjective: Please refer to discharge summary from 06/19. She stayed overnight due to feeling weak and needing blood transfusion running late into the evening. She is doing better today. Feels little bit stronger and more energetic. No new pain or trouble breathing. Vitals/I&O/Wt Last Vital Signs Temp 98.7 F 06/20/21 12:08 Pulse 98 06/20/21 12:08 Resp 18 06/20/21 12:08 BP 147/68 06/20/21 12:08 Pulse Ox 97 06/20/21 12:08 06/19/21 06/20/21 06/20/21 22:59 06:59 14:59 Intake Total 750 / 2066.25 650 / 2716.25 240 / 240 Output Total 600 / 600 500 / 1100 Balance 150 / 1466.25 150 / 1616.25 240 / 240 Weight last 48 hrs Weight 57.742 kg Physical Exam Narrative: at bedside. Const: COMMON NORMALS: no acute distress and patient oriented x3 HENMT: COMMON NORMALS: oropharynx normal Neck/C-Spine: COMMON NORMALS: no JVD Resp: COMMON NORMALS: normal respiratory effort and clear to auscultation bilaterally AUSCULTATION: clear to auscultation bilaterally Cardio: COMMON NORMALS: no JVD, regular rhythm, S1 normal heart sound present, S2 normal heart sound present and No murmurs present (Cardio) RHYTHM: regular rhythm HEART SOUNDS: S1 normal heart sound present and S2 normal heart sound present GI: COMMON NORMALS: Normal to inspection, nondistended, normoactive bowel sounds present, Soft to palpation and non-tender PALPATION: Yes Soft to palpation Extremity: COMMON NORMALS: no joint enlargement and no pedal edema OTHER: Swelling left thigh. Clean dressing. Neuro: COMMON NORMALS: patient oriented x3 and moves all extremities Skin: COMMON NORMALS: no rashes or lesions noted GENERAL SKIN EXAM: no rashes or lesions noted Urinary Catheter Management: Vera: Cath Placed During This Visit: yes Reason for Continuing Indwelling Catheter: Perioperative Use in Selected Surgeries Urinary Catheter Date of Insertion: 06/17/21 Urinary Catheter Time of Insertion: 00:01 Data : 06/20/21 01:53 06/20/21 01:53 A&P Assessment and plan (1) Hip fracture: She is doing better today. Transfused 1 unit. BC due to symptomatic anemia. Adequately responded to blood transfusion, hemoglobin up to 8.4. She is feeling better. Aspirin on hold at this time. Please reassess blood counts, consider resumption of aspirin. Weightbearing as tolerated. Follow-up with orthopedics in office. Status: Deleted (2) Acute anemia: Please reassess hemoglobin in the next 3-5 days. Noted iron deficiency anemia with likely chronic component. With recovery please discuss and referral for additional discomfort evaluation of iron deficiency anemia. Avoid NSAIDs. Status: Acute Plan Continue follow-up regarding chronic issues including Osteoporosis GERD Protonix 40 mg PO daily Attestations Medical Necessity Statement*: Discharged home. Coding Level of Care Code Acute Cartographic Drafter for g Fwd Exam Comprehensive Diagnoses Hip fracture S72.009A Acute anemia D64.9
== END 2021-06-20 12:09 | disposition home health service (06) | DRG 482 ==
LOC: ER 20:11 → MEDSURG 20:13
PROVIDERS: Family Medicine; Orthopaedic Surgery; Admitting Provider Hospitalist; Emergency Provider Nurse Practitioner Family; PCP Family Medicine; Visit Provider Internal Medicine
PROC: 0QS706Z Reposition Left Upper Femur with Intramedullary Internal Fixation Device, Open Approach (ICD-10-PCS; CPT 27245; principal; 2021-06-17 10:35)
DX: M80.052A Age-related osteoporosis with current pathological fracture, left femur, initial encounter for fracture (principal); W00.0XXA Fall on same level due to ice and snow, initial encounter; D50.9 Iron deficiency anemia, unspecified; K21.9 Gastro-esophageal reflux disease without esophagitis; Z79.82 Long term (current) use of aspirin; Z96.649 Presence of unspecified artificial hip joint
CPT/HCPCS: 36415; 36430; 51702; 70450; 71045; 72125; 73501; 73502; 73552; 76000; 80048; 80053; 81001; 82728; 83540; 83550; 85014; 85018; 85025; 85045; 85610; 86850; 86900; 86920; 93005; 96361; 96374; 96375; 97110; 97116; 97161; 97165; 97530; 97535; 99285; C1713; C1776; C9113; J1100; J1170; J1200; J2270; J2405; J2704; J3010; J3490; J7030; P9040

== ENCOUNTER → 2021-08-08 10:09 | Outpatient (BNVA) | payer MEDICARE, OTHER, SELFPAY | PROVIDERS: PCP Family Medicine; Visit Provider Orthopaedic Surgery | DX: Z98.890 Other specified postprocedural states (principal); Z87.81 Personal history of (healed) traumatic fracture; S72.142D Displaced intertrochanteric fracture of left femur, subsequent encounter for closed fracture with routine healing; X58.XXXD Exposure to other specified factors, subsequent encounter | CPT/HCPCS: 73502 ==

== ENCOUNTER → 2021-09-13 09:40 | Outpatient (BNVA) | payer MEDICARE, OTHER, SELFPAY | PROVIDERS: PCP Family Medicine; Visit Provider Orthopaedic Surgery | DX: Z98.890 Other specified postprocedural states (principal); Z87.81 Personal history of (healed) traumatic fracture; S72.142D Displaced intertrochanteric fracture of left femur, subsequent encounter for closed fracture with routine healing; X58.XXXD Exposure to other specified factors, subsequent encounter | CPT/HCPCS: 73502 ==

== ENCOUNTER 2021-09-20 08:57 | Outpatient (CLI) | payer MEDICARE, OTHER, SELFPAY ==
--- NOTE | 2021-09-20 09:11 | MM_ITS ---
WS: [id number] Bilateral screening 3D tomosynthesis digital mammogram, 09/20/2021 Clinical Data: SCREENING Comparison: 09/15/2020, 09/15/2019, 07/21/2018, 07/19/2017, 07/18/2016, 07/18/2015, 07/14/2014, 07/13/2013, , 07/04/2011, 06/30/2010, 06/29/2009, 06/28/2028, 06/23/2007, 06/21/2006. Findings: The breast parenchymal pattern shows heterogeneous density No spiculated masses or clustered calcific ations are seen. There are no secondary signs of carcinoma. MM/[place] [id number] Impression: 1. Negative bilateral mammogram unchanged. 2. Recommend annual screening mammograms. BIRADS: 1-Negative FOLLOW UP: 1 Year Follow-up The CAD wrap checker was used.
== END 2021-09-20 08:58 | disposition home or self-care (01) ==
LOC: RAD 08:59
PROVIDERS: PCP Family Medicine; Visit Provider Family Medicine
DX: Z12.31 Encounter for screening mammogram for malignant neoplasm of breast (principal)
CPT/HCPCS: 77063; 77067

== ENCOUNTER 2022-09-24 15:03 | Outpatient (CLI) | payer MEDICARE, OTHER, SELFPAY ==
--- NOTE | 2022-09-24 15:13 | MM_ITS ---
WS: [id number] BILATERAL 3D TOMOSYNTHESIS DIGITAL SCREENING MAMMOGRAPHY WITH CAD CLINICAL INFORMATION: SCREENING HISTORY: Screening mammogram. No current complaints. COMPARISON: 2021 TECHNIQUE: Bilateral CC and MLO views. FINDINGS: Scattered fibroglandular densities bilaterally. No suspicious focal mass, asymmetry, calcifications, or architectural distortion. No evidence of malignancy. Vascular calcification MM/[place] [id number] IMPRESSION: BI-RADS: 2-Benign FOLLOW UP: 1 Year Follow-up Recommend return to annual screening mammography.
== END 2022-09-24 15:04 | disposition home or self-care (01) ==
LOC: RAD 15:07
PROVIDERS: PCP Family Medicine; Visit Provider Family Medicine
DX: Z12.31 Encounter for screening mammogram for malignant neoplasm of breast (principal)
CPT/HCPCS: 77063; 77067

== ENCOUNTER 2023-02-27 12:48 | Outpatient (CLI) | payer MEDICARE, OTHER, SELFPAY ==
--- NOTE | 2023-02-27 12:54 | XR_ITS ---
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 This corresponds to a T score score of -1.4 and Z score of 1.0. Left forearm bone mineral density measures 0.507. This corresponds to a T score of -4.2 and Z score o f -1.1. IMPRESSION: Osteopenia lumbar spine. Osteoporosis LEFT forearm. Bone mineral density lumbar spine increased 3.8% by calculations although likely spuriously elevated due to endplate sclerosis
--- NOTE | 2023-02-27 12:54 | USCV_ITS ---
Freida Pavon Age: 82 Gender: F : 1940 Exam Date: 02/27/2023 13:09 Ordering Phys: Camille Greene MD Technologist: NORM [place] [facility] [place]: MURMUR BP: 120 / 76 HR: 94 Rhythm: Sinus Technical Quality: Adequate MEASUREMENTS (Male / Female) Normal Values 2D ECHO LVOT Diameter 2.0 cm LV Ejection Fraction MOD 2C 73.4 % LV Ejection Fraction 2C AL 72.5 % LA Diameter 2.4 cm LA Width 2.5 cm LA Height 3.4 cm RA Width 3.0 cm RA Height 3.5 cm Aorta at Sinotubular Diameter 2.1 cm IVC Diameter 1.2 cm M-MODE Aortic Annulus Diameter 1.2 cm LA Ao Ratio MM 1.8 MV E Point Septal Separation 0.3 cm DOPPLER AV Peak Velocity 350.7 cm/s LVOT Peak Velocity 162.0 cm/s AV Area Cont Eq vti 1.6 cm squared AV Area Cont Eq pk 1.4 cm squared MV Peak Velocity 172.0 cm/s MV Area PHT 2.7 cm squared Mitral E to A Ratio 0.6 MV E' Velocity 58.5 cm/s Mitral E to MV E' Ratio 11.1 Mitral E to LV E' Lateral Ratio 10.5 Mitral E to LV E' Septal Ratio 11.8 TR Peak Velocity 300.8 cm/s TR Peak Gradient 36.2 mmHg TR Mean Velocity 252.0 cm/s TR Mean Gradient 26.3 mmHg TR Velocity Time Integral 90.3 cm TV Peak E Velocity 56.0 cm/s Right Atrial Pressure 3.0 mmHg Pulmonary Artery Systolic Pressu 39.2 mmHg PV Peak Velocity 118.0 cm/s RV Acceleration Time 0.1 s RV Ejection Time 0.3 s RV AcT/ET 0.4 FINDINGS Left Ventricle Left ventricle is normal in size. LV systolic function is normal with EF of 65-70%. No regional wall motion abnormalities are seen. Grade 1 diastolic dysfunction Right Ventricle Normal in size and function normal in size Right Atrium Normal in size Left Atrium Normal in size Mitral Valve Moderate mitral annular calcification. Mild mitral regurgitation. Mildly elevated mean gradient of 5.5 mmHg across mitral valve. Aortic Valve Aortic valve is not well-visualized. Moderate aortic stenosis seen with mean gradient of 30 mmHg and aortic valve area 1.53 cm squared. Tricuspid Valve Mild tricuspid regurgitation. RVSP is 35 to 40 mmHg. This is consistent with mild pulmonary hypertension. Pulmonic Valve Not well visualized Pericardium Normal Aorta Normal in size IVC Appears to be normal CONCLUSIONS LV systolic function is normal with EF of 65 to 70% Grade 1 diastolic dysfunction Mild mitral regurgitation Moderate aortic stenosis Mild tricuspid regurgitation Mild pulmonary hypertension No comparison studies are available Timothy Tolentino MD (Electronically Signed) Final Date: 28 February 2023 10:26 S
== END 2023-02-27 12:49 | disposition home or self-care (01) ==
LOC: RAD 12:48
PROVIDERS: PCP Family Medicine; Visit Provider Family Medicine
DX: R01.1 Cardiac murmur, unspecified (principal); Z13.820 Encounter for screening for osteoporosis; M81.0 Age-related osteoporosis without current pathological fracture; M85.88 Other specified disorders of bone density and structure, other site; I08.3 Combined rheumatic disorders of mitral, aortic and tricuspid valves
CPT/HCPCS: 77080; 93306

== ENCOUNTER 2023-03-26 07:46 | Oncology outpatient (recurring) (ONCR) | payer MEDICARE, OTHER, SELFPAY ==
[2023-03-26 09:07] VITALS: BP 159/72; PULSE 78; RESP 17; TEMP 36.8; O2SAT 98
[2023-03-26] MEDS: denosumab 60 mg SDV SUBCUT (09:16)
[2023-03-26 09:21] LABS: Calcium 9.7 mg/dL (8.5-10.5)
[2023-03-26 09:39] VITALS: BP 157/81; PULSE 87; RESP 6; TEMP 36.7; O2SAT 96
== END 2023-04-21 23:59 | disposition home or self-care (01) ==
PROVIDERS: PCP Family Medicine; Visit Provider Family Medicine
DX: D64.9 Anemia, unspecified (principal)
CPT/HCPCS: 36415; 82310; 96372; J0897

== ENCOUNTER → 2023-05-20 10:36 | Outpatient (BNVA) | payer MEDICARE, OTHER, SELFPAY | PROVIDERS: PCP Family Medicine; Referring Provider Family Medicine; Visit Provider Internal Medicine Cardiovascular Disease | DX: I35.0 Nonrheumatic aortic (valve) stenosis (principal); I65.23 Occlusion and stenosis of bilateral carotid arteries; R03.0 Elevated blood-pressure reading, without diagnosis of hypertension | CPT/HCPCS: 99204 ==

== ENCOUNTER 2023-05-28 09:21 | Outpatient (CLI) | payer MEDICARE, OTHER, SELFPAY ==
[2023-05-28 09:45] VITALS: BMI 18.8
--- NOTE | 2023-05-28 10:04 | ECG_ITS ---
[facility] Test Date: 2023-05-28 Pat Name: Freida Pavon Department: Room: Gender: Female Boat Buffer Plastic: Kelli Uriarte : 1940 Requested By: Malika Viera Order Number: [id number] Jermaine MD: Timothy Tolentino M.D. Interpretive Statements NAME OF STUDY: LEXISCAN SESTAMIBI STRESS TEST INDICATION: [Aortic Stenosis , ] Procedure: At the baseline, the blood pressure was 158/73 mmHg with a heart rate of 75 bpm. The electrocardiogram showed normal sinus rhythm, normal axis with normal ST and T's. The Lexiscan was infused over a period of 20 seconds. A total of 0.4 mg of Lexiscan was infused. The stress phase was continued for a total of 5 minutes. Heart rate was at the end of stress phase was 95 bpm and a blood pressure of 127/63 mmHg. The EKG at the peak infusion revealed normal sinus rhythm with no significant ST-T wave changes. Sestamibi was injected 20 seconds after the Lexiscan infusion. Blood pressure at the end of recovery phase was 125/64 mmHg with a heart rate of 94 bpm. Conclusion: 1. Normal EKG response to Lexiscan infusion 2. No Lexiscan induced chest pain or cardiac arrhythmia. 3. Normal blood pressure and heart rate response. 4. Sestamibi/sestamibi perfusion scan pending; see separate report. Electronically Signed On 06-14-2023 11:24:00 ROVING WEIGHT GAUGER by Timothy Tolentino M.D. [id number]
--- NOTE | 2023-05-28 10:04 | NMCV_ITS ---
NM twyla perf SPECT r/s* [id number] Freida Pavon Age: 82 Gender: F : 1940 Exam Date: 05/28/2023 10:04 Ordering Phys: Malika Viera MD ([email or web address]) Technologist: ADRIAN Ruby Exam Location: [facility] Indications: CORONARY ANGIOPLASTY STATUS STRESS TEST Please see separate stress test report in [facility] for full findings IMAGE PROTOCOL Rest/Stress 1 Lexiscan Day Radiopharmaceutical Dose (mCi) Administration Site Administered by Rest: Tc-99m 10.5 IV ADRIAN Ruby Sestamibi Stress:Tc-99m 32.2 IV ADRIAN Everett Sestamibi Rest: 28-May-2023 60 Discovery 630 Stress: 28-May-2023 30 Discovery 630 0.4mg Lexiscan. Images obtained in supine and prone position. SPECT RESULTS Technical Quality: Excellent Raw Data Analysis: Normal Image Corrections: No attenuation or motion correction applied Summed Stress Score: 0 Summed Rest Score: 3 Summed Difference Score: 0 PERFUSION FINDINGS SPECT images demonstrate homogeneous tracer distribution throughout the myocardium. FUNCTIONAL RESULTS (calculated via Gated SPECT) Stress Image LV EF (%): 87 Stress EDV (mL):60 TID: 1.07 Stress ESV (mL):8 FUNCTIONAL FINDINGS: There is normal left ventricular systolic function. IMPRESSIONS 1. Normal myocardial perfusion imaging with no evidence of ischemia 2. LV systolic function is normal. Timothy Tolentino MD (Electronically Signed) Final Date: 28 May 2023 17:01 S
[2023-05-28] MEDS: regadenoson 0.4 Mg/5 ml Syringe IVP (11:04)
[2023-05-28 11:13] VITALS: BP 125/64; PULSE 94
== END 2023-05-28 09:22 | disposition home or self-care (01) ==
LOC: CDL 09:22
PROVIDERS: PCP Family Medicine; Visit Provider Internal Medicine Cardiovascular Disease
DX: I35.0 Nonrheumatic aortic (valve) stenosis (principal); Z98.61 Coronary angioplasty status
CPT/HCPCS: 36415; 78452; 93017; 96374; A9500; J2785

== ENCOUNTER 2023-06-04 10:37 | Outpatient (CLI) | payer MEDICARE, OTHER, SELFPAY ==
--- NOTE | 2023-06-04 11:00 | USCV_ITS ---
Freida Pvaon Age: 82 Gender: F : 1940 Exam Date: 06/04/2023 10:48 Ordering Phys: Malika Viera MD ([email or web address]) Technologist: [place] [facility] [place]: tia Risk Factors: Previous Vascular Surgery: Right Brachial BP: / Left Brachial BP: / Right Left Velocity (cm/s) Spectral Plaque Velocity (cm/s) Spectral Plaque Syst/Diast Broadening Syst/Diast Broadening 84.10/ 15.40 Prox CCA 73.90 / 14.20 62.10/ 15.40 Mid CCA 60.60 / 16.30 56.80/ 12.80 Distal CCA 55.50 / 15.00 43.40/ 12.30 Prox ICA 46.80 / 15.90 68.70/ 19.70 Mid ICA 45.50 / 14.70 58.60/ 17.80 Distal ICA 62.50 / 16.80 43.80 ECA 38.10 1.20 ICA/CCA 1.10 Antegrade Vertebral Antegrade 42.50/ 9.30 cm/s 32.30/ 7.00 cm/s Tri Subclavian Tri FINDINGS Intimal thickening in the internal carotid and common carotid arteries bilaterally. Minimal plaques of the bifurcations bilaterally. Intimal thickening and minimal plaques in the proximal segments of the external carotid arteries bilaterally Antegrade flow in the vertebral arteries bilaterally. Normal Doppler flow velocities in the external carotid, subclavian and vertebral arteries bilaterally CONCLUSIONS Minimal plaques and intimal thickening at the bifurcations and proximal internal carotid arteries bilaterally No severe stenosis in the vertebral, subclavian and external carotid arteries bilaterally based on the above findings Dr Malika Viera MD [facility] (Electronically Signed) Final Date: 12 June 2023 08:25 S
== END 2023-06-04 10:38 | disposition home or self-care (01) ==
LOC: RAD 10:37
PROVIDERS: PCP Family Medicine; Visit Provider Internal Medicine Cardiovascular Disease
DX: I65.23 Occlusion and stenosis of bilateral carotid arteries (principal); I77.9 Disorder of arteries and arterioles, unspecified
CPT/HCPCS: 93880

== ENCOUNTER → 2023-08-20 13:31 | Outpatient (BNVA) | payer MEDICARE, OTHER, SELFPAY | PROVIDERS: PCP Family Medicine; Visit Provider Internal Medicine Cardiovascular Disease | DX: R03.0 Elevated blood-pressure reading, without diagnosis of hypertension (principal); I35.0 Nonrheumatic aortic (valve) stenosis; D64.9 Anemia, unspecified | CPT/HCPCS: 99214 ==

== ENCOUNTER 2023-09-26 10:18 | Outpatient (CLI) | payer MEDICARE, OTHER, SELFPAY ==
--- NOTE | 2023-09-26 10:20 | MM_ITS ---
WS: [id number] SCREENING DIGITAL TOMOSYNTHESIS MAMMOGRAM WITH CAD HISTORY: SCREENING COMPARISON: 09/24/2022, 09/20/2021 Bilateral CC and MLO with tomosynthesis views submitted. Synthetic mammography reviewed. Computer aid ed detection analyzed. Breast composition: There are scattered areas of fibroglandular density. No suspicious masses, microc alcifications or architectural distortion. Bilateral breast arterial calcifications. MM/[place] [id number] IMPRESSION: BI-RADS: 2-Benign FOLLOW UP: 1 Year Follow-up
== END 2023-09-26 10:19 | disposition home or self-care (01) ==
LOC: RAD 10:19
PROVIDERS: PCP Family Medicine; Visit Provider Family Medicine
DX: Z12.31 Encounter for screening mammogram for malignant neoplasm of breast (principal); R92.323 Mammographic fibroglandular density, bilateral breasts; R92.1 Mammographic calcification found on diagnostic imaging of breast
CPT/HCPCS: 77063; 77067

== ENCOUNTER → 2024-02-26 10:05 | Outpatient (BNVA) | payer MEDICARE, OTHER, SELFPAY | PROVIDERS: PCP Family Medicine; Visit Provider Internal Medicine Cardiovascular Disease | DX: I35.0 Nonrheumatic aortic (valve) stenosis (principal); R03.0 Elevated blood-pressure reading, without diagnosis of hypertension; D64.9 Anemia, unspecified; Z87.891 Personal history of nicotine dependence | CPT/HCPCS: 99214 ==

== ENCOUNTER 2024-03-23 08:14 | Outpatient (CLI) | payer MEDICARE, OTHER, SELFPAY ==
--- NOTE | 2024-03-23 08:18 | USCV_ITS ---
Freida Pavon Age: 83 Gender: F : 1940 Exam Date: 03/23/2024 08:34 Ordering Phys: Malika Viera MD ([email or web address]) Technologist: CT Exam Location: [facility] Indication: BP: 145 / 74 HR: 63 Rhythm: Sinus Technical Quality: Adequate MEASUREMENTS (Male / Female) Normal Values 2D ECHO LVOT Diameter 2.0 cm LV Ejection Fraction MOD 4C 63.8 % LV Ejection Fraction MOD 2C 61.4 % LV Ejection Fraction 2C AL 61.8 % LA Diameter 3.9 cm RA Systolic Volume 4C AL 26.2 ml RA Systolic Volume 4C MOD 26.4 ml LA Sys Volume AL 46.8 cm cubed LA Sys Volume Index AL 31.6 cm cubed/m squared Aorta at Sinotubular Diameter 1.8 cm IVC Diameter 1.8 cm M-MODE LA Ao Ratio MM 1.8 AV Cusp Separation MM 0.9 cm DOPPLER AV Peak Velocity 336.0 cm/s LVOT Peak Velocity 131.0 cm/s AV Area Cont Eq vti 1.4 cm squared AV Area Cont Eq pk 1.3 cm squared MV Peak Velocity 152.0 cm/s MV Area PHT 3.1 cm squared Mitral E to A Ratio 0.9 TR Peak Velocity 297.0 cm/s TR Peak Gradient 35.3 mmHg TR Mean Velocity 225.0 cm/s TR Mean Gradient 22.7 mmHg TR Velocity Time Integral 101.5 cm TV Peak E Velocity 58.0 cm/s PV Peak Velocity 82.5 cm/s FINDINGS Left Ventricle Mild left ventricular hypertrophy. Normal left ventricular size and systolic function, EF 61%. No regional wall motion abnormalities. Grade I/IV diastolic dysfunction (abnormal relaxation filling pattern), normal to mildly elevated filling pressures. Right Ventricle Normal RV size and ejection fraction Right Atrium Normal right atrial size. Left Atrium Mildly increased left atrial size. Mitral Valve Moderate mitral annular calcification. Mild-moderate mitral valve regurgitation. Aortic Valve Moderate aortic valve stenosis, mean gradient 23.9 mmHg, JOELLE 1.4 cm squared. Mild aortic valve regurgitation. Moderate aortic valve calcification. Tricuspid Valve [id number] tricuspid valve regurgitation. Estimated pulmonary artery peak systolic pressure 35 mmHg Pulmonic Valve Mild pulmonary valve regurgitation. Pericardium No pericardial effusion. Aorta Normal aortic annulus size. IVC Normal inferior vena cava. CONCLUSIONS Mild left ventricular hypertrophy. Normal left ventricular size and systolic function, EF 61%. No regional wall motion abnormalities. Grade I/IV diastolic dysfunction (abnormal relaxation filling pattern), normal to mildly elevated filling pressures. Moderate aortic valve stenosis, mean gradient 23.9 mmHg, JOELLE 1.4 cm squared. Mild aortic valve regurgitation. Moderate aortic valve calcification. Moderate mitral annular calcification. Mild-moderate mitral valve regurgitation. Mildly increased left atrial size. [id number] tricuspid valve regurgitation. Estimated pulmonary artery peak systolic pressure 35 mmHg. Mild pulmonary valve regurgitation. There is no pericardial effusion. There are no intracardiac masses. Compared to the study from 02/27/2023, there may not be a significant change Dr Malika Viera MD [facility] (Electronically Signed) Final Date: 24 March 2024 09:05 S
== END 2024-03-23 08:15 | disposition home or self-care (01) ==
LOC: RAD 08:15
PROVIDERS: PCP Family Medicine; Visit Provider Internal Medicine Cardiovascular Disease
DX: I50.30 Unspecified diastolic (congestive) heart failure (principal); I34.0 Nonrheumatic mitral (valve) insufficiency; I34.81 Nonrheumatic mitral (valve) annulus calcification; I35.0 Nonrheumatic aortic (valve) stenosis; I07.1 Rheumatic tricuspid insufficiency; R06.09 Other forms of dyspnea
CPT/HCPCS: 93306

== ENCOUNTER → 2024-10-06 13:38 | Outpatient (BNVA) | payer MEDICARE, OTHER, SELFPAY | PROVIDERS: PCP Family Medicine; Visit Provider Internal Medicine Cardiovascular Disease | DX: I35.0 Nonrheumatic aortic (valve) stenosis (principal); D64.9 Anemia, unspecified; R03.0 Elevated blood-pressure reading, without diagnosis of hypertension; Z79.82 Long term (current) use of aspirin; R06.09 Other forms of dyspnea | CPT/HCPCS: 99214 ==

== ENCOUNTER 2025-03-22 08:38 | Outpatient (CLI) | payer MEDICARE, OTHER, SELFPAY ==
--- NOTE | 2025-03-22 09:15 | USCV_ITS ---
Freida Pavon Age: 84 Gender: F : 1940 Exam Date: 03/22/2025 09:05 Ordering Phys: Malika Viera MD ([email or web address]) Technologist: [place]am [place] [facility] [place]: cp sob BP: 120 / 790 HR: 67 Rhythm: Sinus Technical Quality: Adequate MEASUREMENTS (Male / Female) Normal Values 2D ECHO LV Diastolic Diameter PLAX 4.2 cm 4.2 - 5.9 / 3.9 - 5.3 cm IVS Diastolic Thickness 1.1 cm 0.6 - 1.0 / 0.6 - 0.9 cm IVS Systolic Thickness 1.5 cm LVPW Diastolic Thickness 1.1 cm 0.6 - 1.0 / 0.6 - 0.9 cm LVPW Systolic Thickness 1.4 cm LVOT Diameter 2.0 cm LV Ejection Fraction 2D Teich 66.2 % LV Ejection Fraction MOD 4C 69.3 % LV Ejection Fraction MOD 2C 49.7 % LV Ejection Fraction 2C AL 50.4 % LA Diameter 3.0 cm RA Systolic Volume 4C AL 29.3 ml RA Systolic Volume 4C MOD 30.5 ml LA Sys Volume AL 40.2 cm cubed LA Sys Volume Index AL 26.4 cm cubed/m squared Aorta at Sinotubular Diameter 2.5 cm IVC Diameter 1.2 cm M-MODE LA Ao Ratio MM 1.5 AV Cusp Separation MM 1.6 cm DOPPLER AV Peak Velocity 355.7 cm/s LVOT Peak Velocity 116.0 cm/s AV Area Cont Eq vti 1.0 cm squared AV Area Cont Eq pk 1.0 cm squared MV Peak Velocity 162.0 cm/s MV Area PHT 2.5 cm squared Mitral E to A Ratio 0.6 TV Peak Velocity 256.5 cm/s TR Peak Velocity 273.0 cm/s TR Peak Gradient 29.8 mmHg TV Peak E Velocity 81.0 cm/s PV Peak Velocity 140.0 cm/s FINDINGS Left Ventricle Normal left ventricular size and systolic function, EF 66%. Moderate left ventricular hypertrophy. No regional wall motion abnormalities. Grade I/IV diastolic dysfunction (abnormal relaxation filling pattern), normal to mildly elevated filling pressures. Right Ventricle Normal right ventricular size and systolic function. Right Atrium Normal right atrial size. Left Atrium Mildly increased left atrial size. IA Septum Normal appearance of the interatrial septum. Mitral Valve Moderate mitral annular calcification. Moderate mitral valve regurgitation. Aortic Valve Severe low gradient aortic valve stenosis, mean gradient 28 mmHg, JOELLE 1 cm squared. Peak velocity of 3.66 m/s with a peak gradient of 56 mmHg. Trace to mild aortic valve regurgitation. Tricuspid Valve Mild tricuspid valve regurgitation. Estimated pulmonary artery peak systolic pressure 33 mmHg Pulmonic Valve No gross abnormalities noted Pericardium No pericardial effusion. Aorta Normal aortic annulus size. IVC Normal inferior vena cava. CONCLUSIONS Normal left ventricular size and systolic function, EF 66%. Moderate left ventricular hypertrophy. No regional wall motion abnormalities. Grade I/IV diastolic dysfunction (abnormal relaxation filling pattern), normal to mildly elevated filling pressures. Mildly increased left atrial size. Moderate mitral annular calcification. Moderate mitral valve regurgitation. Severe low gradient aortic valve stenosis, mean gradient 28 mmHg, JOELLE 1 cm squared. Peak velocity of 3.66 m/s with a peak gradient of 56 mmHg. Trace to mild aortic valve regurgitation. Mild tricuspid valve regurgitation. Estimated pulmonary artery peak systolic pressure 33 mmHg. There is no pericardial effusion. There are no intracardiac masses. Compared to the study from 03/23/2024, there is slight worsening of the aortic valve stenosis Dr Malika Viera MD [facility] (Electronically Signed) Final Date: 23 March 2025 07:40 S
== END 2025-03-22 08:39 | disposition home or self-care (01) ==
PROVIDERS: PCP Family Medicine; Visit Provider Internal Medicine Cardiovascular Disease
DX: R06.09 Other forms of dyspnea (principal); I51.7 Cardiomegaly; I51.89 Other ill-defined heart diseases; I34.9 Nonrheumatic mitral valve disorder, unspecified; I34.0 Nonrheumatic mitral (valve) insufficiency; I35.1 Nonrheumatic aortic (valve) insufficiency; I36.1 Nonrheumatic tricuspid (valve) insufficiency; I27.20 Pulmonary hypertension, unspecified
CPT/HCPCS: 93306